=== PATIENT | male | born 1960 | race Caucasian/White ===

== ENCOUNTER 2020-04-02 07:26 | Emergency (ER) | payer BC ==
[2020-04-02 07:33] VITALS: TEMP 98.4
[2020-04-02] MEDS ORDERED: ETOMIDATE 2 MG/ML 10 ML VIAL IVP STA (08:01)
[2020-04-02 08:54] VITALS: PULSE 69
--- NOTE | 2020-04-02 08:58 | XR ---
EXAMINATION TYPE: XR knee complete LT DATE OF EXAM: 04/02/2020 COMPARISON: NONE HISTORY: 60-year-old male with knee pain for months, difficulty walking TECHNIQUE: 3 views FINDINGS: There is a 3.9 cm wide broad-based partially pedunculated osteochondroma projecting out into the soft tissues by 1.6 cm along the posteromedial aspect of the distal femoral shaft. No periostitis or oste olysis. No knee joint effusion. Mild degenerative spurring in the medial and patellofemoral compartme nts. Extensor mechanism is intact. No acute fracture, subluxation, or dislocation seen. IMPRESSION: 1. A 2.9 cm broad-based, partially pedunculated osteochondroma projecting out into the soft tissues b y 1.6 cm along the posterior medial aspect of the distal femoral shaft. Correlate as to if this is co ntributing to the patient's symptoms. 2. Mild degenerative spurring in the medial patellofemoral compartments without acute osseous abnorma lity seen.
--- NOTE | 2020-04-02 09:06 | ED ---
Extremity Problem HPI - General Chief complaint: Extremity Problem,Nontraumatic Stated complaint: knee pain Time Seen by Provider: 04/02/20 07:35 Source: patient Mode of arrival: ambulatory Limitations: no limitations - History of Present Illness Initial comments: 60 year male presents today for chief complaint of left knee pain xmonths. Patient states he has left anterior posterior knee pain ongoing for months. Patient states he has an orthopedic appointment coming up states he has not had any imaging studies. Patient's states she was concerned of possible blood clot. Patient denies history of cancer history DVT and pulmonary embolism denies exogenous hormone use recent surgeries recent injury falls or direct trauma denies any leg swelling or calf pain, denies chest pain or SOB. Denies fevers, redness or swelling of the knee joint. Patient denies any additional complaints. Upon arrival patient appears well there is no signs of acute distress. - Related Data Home Medications Medication Instructions Recorded Confirmed Aspirin [Adult Low Dose Aspirin EC] 162 mg PO DAILY 04/02/20 04/02/20 Atorvastatin Calcium [Lipitor] 10 mg PO HS 04/02/20 04/02/20 Calcium Carbonate/Vitamin D3 1 tab PO DAILY 04/02/20 04/02/20 [Calcium 600-Vit D3 200 Tablet] Krill/[place]-3/Dha/Epa/Lipids 1 cap PO DAILY 04/02/20 04/02/20 [Krill Oil 350 mg Softgel] Losartan Potassium 100 mg PO HS 04/02/20 04/02/20 Multivitamins, Thera [Multivitamin 1 tab PO DAILY 04/02/20 04/02/20 (formulary)] Allergies Allergy/AdvReac Type Severity Reaction Status Date / Time No Known Allergies Allergy Verified 04/02/20 08:29 Review of Systems ROS Statement: Those systems with pertinent positive or pertinent negative responses have been documented in the HPI. ROS Other: All systems not noted in ROS Statement are negative. Past Medical History Past Medical History: Hyperlipidemia, Hypertension History of Any Multi-Drug Resistant Organisms: None Reported Past Surgical History: No Surgical Hx Reported Past Psychological History: No Psychological Hx Reported Smoking Status: Current every day smoker Past Alcohol Use History: Occasional Past Drug Use History: Marijuana General Exam - General Exam Comments Initial Comments: General: The patient is awake and alert, in no distress, and does not appear acutely ill. Eye: Pupils are equal, round and reactive to light, extra-ocular movements are intact. No nystagmus. There is normal conjunctiva bilaterally. No signs of icterus. Cardiovascular: There is a regular rate and rhythm. No murmur, rub or gallop is appreciated. Respiratory: Lungs are clear to auscultation, respirations are non-labored, breath sounds are equal. No wheezes, stridor, rales, or rhonchi. Gastrointestinal: Soft, non-distended, non-tender abdomen without masses or organomegaly noted. There is no rebound or guarding present. Musculoskeletal: Normal ROM, tenderness clicking of the left knee. Strength 5/5. Sensation intact. DP pulses equal bilaterally 2+. Neurological: A&O x 3. CN II-XII intact grossly, There are no obvious motor or sensory deficits. Coordination appears grossly intact. Speech is normal. Skin: Skin is warm and dry and no rashes or lesions are noted. No calf pain, no calf swelling or mass-no masses of popliteal fossa. Psychiatric: Cooperative, appropriate mood & affect, normal judgment. Limitations: no limitations Course Vital Signs 04/02/20 04/02/20 04/02/20 07:27 07:33 08:48 Temperature 98.4 F Pulse Rate 81 69 Respiratory 18 18 18 Rate Blood Pressure 169/100 174/94 O2 Sat by Pulse 98 97 Oximetry 04/02/20 09:43 Temperature Pulse Rate 69 Respiratory 20 Rate Blood Pressure 160/87 O2 Sat by Pulse 97 Oximetry Medical Decision Making - Medical Decision Making 60-year-old male presenting today for chief complaint of left knee pain ongoing for months. Upcoming appointment orthopedics. No previous imaging studies x- ray revealed a osteochondroma of the femur otherwise no acute findings. Does no t appear particularly to be in the same location of patient's pain. D-dimer negative patient has minimal risk factors for deep venous are both scissors no clinical findings a physical examination concerning for DVT. Recommend pcp f/u return for swelling, calf pain, redness, fevers. Patient is aware of the need to f/u with orthopedic surgery for further evaluation and treatment. [place] agreeable to care plan and discharge. - Lab Data Lab Results 04/02/20 Range/Units 08:03 D-Dimer 0.28 (<0.60) mg/L FEU Disposition Clinical Impression: Osteochondroma of femur, Knee pain, left Disposition: HOME SELF-CARE Condition: Good Instructions (If sedation given, give patient instructions): Benign Bone Tumor (DC) Additional Instructions: Please use medication as discussed. Please follow-up with orthopedics as scheduled. Please return to emergency room if the symptoms increase or worsen or for any other concerns. Is patient prescribed a controlled substance at d/c from ED?: No Referrals: Nonstaff,Physician [Primary Care Provider] - 1-2 days Time of Disposition: 09:05
[2020-04-02 09:44] VITALS: BP 160/87; RESP 20
== END 2020-04-02 09:43 | disposition home or self-care (01) ==
LOC: EC 07:26
DX: D16.22 Benign neoplasm of long bones of left lower limb (principal); E78.5 Hyperlipidemia, unspecified; I10 Essential (primary) hypertension; F17.200 Nicotine dependence, unspecified, uncomplicated; Z79.899 Other long term (current) drug therapy; Z79.82 Long term (current) use of aspirin
CPT/HCPCS: 36415; 85379; 99283

== ENCOUNTER → 2021-12-22 | Outpatient (CLI) | payer BC ==
--- NOTE | 2021-12-22 23:16 | XR ---
EXAMINATION TYPE: XR chest 2V DATE OF EXAM: 12/22/2021 COMPARISON: None available HISTORY: Chest pain TECHNIQUE: Frontal and lateral views of the chest are obtained. FINDINGS: Unremarkable lungs. No pleural effusion or pneumothorax. No cardiomegaly. Aortic atherosclerotic calc ifications. No aggressive bone lesion. IMPRESSION: No definite acute abnormality identified.
== END ==
LOC: RADXRMAIN 10:55
PROVIDERS: ATTEND Internal Medicine
DX: R07.9 Chest pain, unspecified (principal)
CPT/HCPCS: 71046

== ENCOUNTER 2021-12-29 06:01 | Inpatient (IN) | payer BC ==
[~2021-12-29 06:01] MED LIST: ALPRAZolam 0.25 MG TAB PO PRN; ALPRAZolam 0.5 MG TAB PO PRN; NITROGLYCERIN SL TABS 0.4 MG TAB SUBLINGUAL PRN; SODIUM CHLORIDE 0.9% 1,000 ML in EMPTY BAG 1 BAG IV SCH
[2021-12-29 06:50] LABS: Basophils # (A) 0.1 k/uL (0-0.2); Basophils % (A) 1 %; Eosinophils # (A) 0.4 k/uL (0-0.7); Eosinophils % (A) 5 %; HCT 41.8 % (39.0-53.0); HGB 13.9 gm/dL (13.0-17.5); Lymphocytes # (A) 1.4 k/uL (1.0-4.8); Lymphocytes % (A) 15 %; MCHC 33.4 g/dL (31.0-37.0); MCV 95.9 fL (80.0-100.0); Monocytes # (A) 0.5 k/uL (0-1.0); Monocytes % (A) 6 %; Neutrophils # (A) 6.5 k/uL (1.3-7.7); Neutrophils % (A) 72 %; Platelet Count 268 k/uL (150-450); RBC 4.36 m/uL (4.30-5.90); RDW 12.8 % (11.5-15.5)
[2021-12-29] MEDS ORDERED: HEPARIN SODIUM,PORCINE 10,000 UNIT in SODIUM CHLORIDE 0.9% 1,000 ML IRRIGATION PRN (07:00)
[2021-12-29] MEDS ORDERED: HEPARIN SODIUM,PORCINE 2,500 UNIT in SODIUM CHLORIDE 0.9% 250 ML IRRIGATION PRN (07:00)
[2021-12-29] MEDS ORDERED: ASPIRIN 325 MG TAB PO ONE (07:00)
[2021-12-29 07:02] LABS: African American GFR (CKD) >90 (>60 ml/min/1.73 sqM); Anion Gap 4 mmol/L; Blood Urea Nitrogen 13 mg/dL (9-20); Calcium 8.9 mg/dL (8.4-10.2); Carbon Dioxide 28 mmol/L (22-30); Chloride 108 mmol/L (98-107); Glucose 105 mg/dL (74-99); Non-African American GFR(CKD) >90 (>60 ml/min/1.73 sqM); Potassium 4.6 mmol/L (3.5-5.1); Sodium 140 mmol/L (137-145)
[2021-12-29] MEDS ORDERED: LIDOCAINE 1% INJ 10MG/ML (20 ML MDV) ONE (07:34)
[2021-12-29] MEDS ORDERED: MIDAZOLAM 2 MG/2 ML VIAL IV ONE (07:49)
[2021-12-29] MEDS ORDERED: fentaNYL (PF) 50 MCG/ML 2 ML AMP ONE (07:50)
[2021-12-29] MEDS ORDERED: VERAPAMIL 2.5 MG/ML 2 ML AMP ONE (07:50)
[2021-12-29] MEDS ORDERED: fentaNYL (PF) 50 MCG/ML 2 ML AMP IV ONE (07:51)
[2021-12-29] MEDS ORDERED: LIDOCAINE 1% INJ 10MG/ML (20 ML MDV) SQ ONE (07:54)
[2021-12-29] MEDS ORDERED: HEPARIN SODIUM 1,000 UN/ML (10ML VL) ONE (07:56)
[2021-12-29] MEDS: VERAPAMIL SYRINGE (5 MG/10 ML) INTRAARTER ONE ×2 (07:56→08:08)
[2021-12-29] MEDS ORDERED: IOPAMIDOL-370 125ML BTL INJ ONE (08:10)
[2021-12-29] MEDS ORDERED: RX INFO: IV CONTRAST WAS GIVEN 1 EACH MISC MISCELLANE PRN (08:30)
--- NOTE | 2021-12-29 09:30 | CC ---
CARDIAC CATHETERIZATION REPORT INDICATION: Unstable angina with an abnormal stress test. PROCEDURE NOTE: After obtaining informed consent, left heart catheterization and coronary angiogram were performed via the right radial artery using size 3.5 [place] catheters. Left ventricular pressures were obtained using a pigtail catheter. The patient tolerated the procedure well without any obvious immediate complications. Using a micropuncture needle, right radial artery access was obtained, and under fluoroscopic guidance catheters and wires were floated into the ascending aorta and catheters were exchanged there. Patient received 5 mg of verapamil, 5000 units of IV heparin as per protocol, and a TR band was used for hemostasis. FINDINGS: HEMODYNAMICS: Left ventricular end-diastolic pressure is 15 mm. There is no significant gradient across the aortic valve. LEFT VENTRICULOGRAM: Left ventriculogram was not performed. ANGIOGRAPHIC DATA: Left main coronary artery. Left main coronary artery is a normal-sized vessel. It appears heavily calcified, as do the LAD and circumflex coronary arteries. Distal left main has a 70% stenosis. Ostial circumflex has a 90% stenosis, and in the proximal third there is another area of 90% stenosis. LAD gives off two large-caliber diagonal branches. The first diagonal has an 80% to 90% ostial stenosis. Mid LAD has a 50% stenosis. Right coronary artery is a large dominant vessel that shows two segmental areas of 90% stenosis both in the mid and distal RCA. CONCLUSIONS: Severe left main and three-vessel coronary artery disease as described above. PLAN: The patient will need bypass surgery. I spoke to Dr. Ladd, who is going to see the patient today. I am going to admit him. My expectation is that this patient will undergo surgery on this admission. The patient is stable hemodynamically. He does not have any chest pain or shortness of breath. I will obtain a 2D echo and carotid duplex study. MMODL / IJN: [id number] /
--- NOTE | 2021-12-29 10:01 | ECHOF ---
Referral Reason:OPEN HEART CONSULT MEASUREMENTS -------- HEIGHT: 152.4 cm WEIGHT: 78.5 kg BP: RVIDd: 3.5 cm (< 3.3) IVSd: 1.1 cm (0.6 - 1.1) LVIDd: 5.4 cm (3.9 - 5.3) LVPWd: 1.0 cm (0.6 - 1.1) IVSs: 1.4 cm LVIDs: 3.6 cm LVPWs: 1.5 cm LA Diam: 4.6 cm (2.7 - 3.8) LAESV Index (A-L): 37.68 ml/m Ao Diam: 3.4 cm (2.0 - 3.7) AV Cusp: 2.0 cm (1.5 - 2.6) LA Diam: 4.0 cm (2.7 - 3.8) MV EXCURSION: 22.213 mm (> 18.000) MV EF SLOPE: 78 mm/s (70 - 150) EPSS: 0.6 cm MV E Ray: 0.48 m/s MV DecT: 198 ms MV A Ray: 0.76 m/s MV E/A Ratio: 0.63 RAP: 5.00 mmHg RVSP: 21.00 mmHg FINDINGS -------- Sinus rhythm. This was a technically good study. LV size, wall thickness and systolic function are normal, with an EF greater than 55%. The left homar tricular size is normal. The right ventricle is normal in size. LA is moderately dilated 34-39 ml/m2 The aortic valve is trileaflet, and appears structurally normal. No aortic stenosis or regurgitation. Mild mitral regurgitation is present. Mild tricuspid regurgitation present. Right ventricular systolic pressure is normal at < 35 mmHg. There is no pulmonic regurgitation present. Echo free space indicative of a pericardial fat pad. CONCLUSIONS -------- 1. LV size, wall thickness and systolic function are normal, with an EF greater than 55%. 2. The left ventricular size is normal. 3. The right ventricle is normal in size. 4. LA is moderately dilated 34-39 ml/m2 5. The aortic valve is trileaflet, and appears structurally normal. No aortic stenosis or regurgitati on. 6. Mild mitral regurgitation is present. 7. Mild tricuspid regurgitation present. 8. Echo free space indicative of a pericardial fat pad. REJECTOR: Maria Fernanda Ta RDCS
--- NOTE | 2021-12-29 10:47 | US ---
EXAMINATION TYPE: US carotid duplex BILAT DATE OF EXAM: 12/29/2021 COMPARISON: NONE CLINICAL HISTORY: OPEN HEART CONSULT. EXAM MEASUREMENTS: RIGHT: Peak Systolic Velocity (PSV) cm/sec ----- Right CCA: 68.2 ----- Right ICA: 108.9 ----- Right ECA: 155.4 ICA/CCA ratio: 1.6 RIGHT: End Diastole cm/sec ----- Right CCA: 14.4 ----- Right ICA: 27.5 ----- Right ECA: 16.4 LEFT: Peak Systolic Velocity (PSV) cm/sec ----- Left CCA: 64.8 ----- Left ICA: 118.3 ----- Left ECA: 271.2 ICA/CCA ratio: 1.8 LEFT: End Diastole cm/sec ----- Left CCA: 20.7 ----- Left ICA: 30.0 ----- Left ECA: 22.3 VERTEBRALS (direction of flow): Right Vertebral: Antegrade Left Vertebral: Antegrade Rhythm: Normal Bilateral plaque visualized elevated left ECA. No significant stenosis seen Grayscale, color Doppler, spectral Doppler imaging performed the carotid arteries. Waveform analysis does not show significant stenosis of the internal carotid arteries IMPRESSION: No hemodynamic significant stenosis of the internal carotid arteries by Doppler criteria , an indirect measurement of carotid stenosis Criteria for Assigning % of Stenosis / Diameter reduction (Estimation based on the indirect measurements of the internal carotid artery velocities (ICA PSV). 1. Normal (no stenosis)=ICA PSV < 125 cm/s: ratio < 2.0: ICA EDV<40 cm/s. 2. Less than 50% stenosis=ICA PSV < 125 cm/s: ratio < 2.0: ICA EDV<40 cm/s. 3. 50 to 69% stenosis=ICA PSV of 125 to 230 cm/s: ration 2.0 ? 4.0: ICA EDV 40-100 cm/s. 4. Greater than 70% stenosis to near occlusion= ICA PSV > 230 cm/s: ratio > 4.0: ICA EDV > 100 cm/s. 5. Near occlusion= ICA PSV velocities may be low or undetectable: variable ratio and ICA EDV. 6. Total occlusion=unable to detect flow.
--- NOTE | 2021-12-29 11:35 | P.GSCN ---
<Sandrita Mendosa - Last Filed: 12/29/21 11:34> History of Present Illness Consult date: 12/29/21 Reason for Consult: Coronary artery disease with left main disease Requesting physician: Redd Cummings History of present illness: This is a 61-year-old active gentleman who follows on an outpatient basis with Dr. Parsons for primary care. He has a previous medical history of hypertension, hyperlipidemia, current tobacco dependence, occasional EtOH and marijuana use. He was experiencing symptoms of shortness of breath and chest pain and sought care with Dr. Cummings from [facility]. He underwent a treadmill stress test which had to be stopped early due to chest pain and shortness of breath. At peak exercise he did have ST depression in the inferolateral leads and was recommended to undergo heart catheterization which was completed today and which demonstrated left main stenosis 70%, RCA stenosis 90%, circumflex stenosis 90%, and distal LAD stenosis 70-80%. Of note transthoracic echocardiogram was also completed demonstrating normal left ventricular systolic function with EF 55%, mild mitral and mild tricuspid regurgitation. Due to heart catheterization findings consultation is placed to cardiothoracic surgery for surgical revascularization recommendations. Review of Systems Review of systems was completed and was negative except as noted in the HPI Past Medical History Past Medical History: Hyperlipidemia, Hypertension Additional Past Medical History / Comment(s): SEE H&P BY DR. CUMMINGS FOR CARDIAC STATUS. History of Any Multi-Drug Resistant Organisms: None Reported Past Surgical History: No Surgical Hx Reported Additional Past Surgical History / Comment(s): TORN MENISCUS LEFT ARTHOSCOPIC Past Anesthesia/Blood Transfusion Reactions: No Reported Reaction Past Psychological History: No Psychological Hx Reported Smoking Status: Current every day smoker Past Alcohol Use History: Occasional Additional Past Alcohol Use History / Comment(s): SMOKED SINCE AGE 28 YRS. , 5-6 CIGS PER Past Drug Use History: Marijuana Medications and Allergies Home Medications Medication Instructions Recorded Confirmed Type Aspirin [Adult Low Dose Aspirin EC] 81 mg PO DAILY 04/02/20 12/29/21 History Atorvastatin Calcium [Lipitor] 10 mg PO HS 04/02/20 12/29/21 History Calcium Carbonate/Vitamin D3 1 tab PO DAILY 04/02/20 12/29/21 History [Calcium 600-Vit D3 200 Tablet] Krill/[place]-3/Dha/Epa/Lipids 1 cap PO DAILY 04/02/20 12/29/21 History [Krill Oil 350 mg Softgel] Losartan Potassium 100 mg PO HS 04/02/20 12/29/21 History Multivitamins, Thera [Multivitamin 1 tab PO DAILY 04/02/20 12/29/21 History (formulary)] Isosorbide Mononitrate [Isosorbide 30 mg PO DAILY 12/29/21 12/29/21 History Mononitrate ER] amLODIPine [Norvasc] 5 mg PO DAILY 12/29/21 12/29/21 History Allergies Allergy/AdvReac Type Severity Reaction Status Date / Time No Known Allergies Allergy Verified 12/29/21 06:36 Surgical - Exam Vital Signs Temp Pulse Resp BP Pulse Ox 98.4 F 70 18 122/74 98 12/29/21 06:54 12/29/21 06:54 12/29/21 06:54 12/29/21 06:54 12/29/21 06:54 CONSTITUTIONAL: Awake and alert, appears comfortable, cooperative, well- developed, well-nourished, no pain, no acute distress EYES: Pupils equal, round, reactive to light, normal ocular movement ENT: Moist mucous membranes without oral lesions present NECK: No masses, no bruits, trachea midline RESPIRATORY: Lungs sounds clear to auscultation bilaterally. Respirations even, nonlabored. Currently on room air with oxygen saturation 98%. Strong cough. No chest wall deformities. No clubbing or cyanosis present CARDIOVASCULAR: S1, S2 present. Regular rate and rhythm, sinus rhythm on telemetry. Palpable peripheral pulses bilaterally. No edema present. No calf pain or tenderness noted. No significant lower extremity varicosities noted. Left radial Maynor's test less than 8 seconds. GASTROINTESTINAL: Abdomen soft, nontender, nondistended without masses or organomegaly noted. There is no rebound or guarding present. Active bowel sounds present 4 quadrants. GENITOURINARY: Deferred INTEGUMENTARY: Skin is warm and dry with evidence of good perfusion. Right radial heart catheterization site well approximated without drainage, T band in place NEUROLOGIC: Cranial nerves II through XII intact, normal coordination, no obvious motor or sensory deficits, speech is normal MUSKULOSKELETAL: Able to move all extremities, strength equal bilaterally, normal posture PSYCHIATRIC: Alert and oriented to person place and time, appropriate affect, intact judgment and insight Results - Labs 12/29/21 06:40 12/29/21 06:40 Abnormal Lab Results - Last 24 Hours (Table) 12/29/21 Range/Units 06:40 Chloride 108 H (98-107) mmol/L Glucose 105 H (74-99) mg/dL Diabetes panel 12/29/21 Range/Units 06:40 Sodium 140 (137-145) mmol/L Potassium 4.6 (3.5-5.1) mmol/L Chloride 108 H (98-107) mmol/L Carbon Dioxide 28 (22-30) mmol/L BUN 13 (9-20) mg/dL Creatinine 0.76 (0.66-1.25) mg/dL Glucose 105 H (74-99) mg/dL Calcium 8.9 (8.4-10.2) mg/dL Calcium panel 12/29/21 Range/Units 06:40 Calcium 8.9 (8.4-10.2) mg/dL Pituitary panel 12/29/21 Range/Units 06:40 Sodium 140 (137-145) mmol/L Potassium 4.6 (3.5-5.1) mmol/L Chloride 108 H (98-107) mmol/L Carbon Dioxide 28 (22-30) mmol/L BUN 13 (9-20) mg/dL Creatinine 0.76 (0.66-1.25) mg/dL Glucose 105 H (74-99) mg/dL Calcium 8.9 (8.4-10.2) mg/dL Adrenal panel 12/29/21 Range/Units 06:40 Sodium 140 (137-145) mmol/L Potassium 4.6 (3.5-5.1) mmol/L Chloride 108 H (98-107) mmol/L Carbon Dioxide 28 (22-30) mmol/L BUN 13 (9-20) mg/dL Creatinine 0.76 (0.66-1.25) mg/dL Glucose 105 H (74-99) mg/dL Calcium 8.9 (8.4-10.2) mg/dL - Imaging Additional studies: Heart catheterization films reviewed with Dr. Martinez Assessment and Plan Assessment: 1. Triple-vessel coronary artery disease with left main disease, unstable angina 2. History of hypertension 3. History of hyperlipidemia, treated 4. Current tobacco dependence 5. Family history of premature coronary artery disease with mother having her first CABG at 56 years old 6. Remains unvaccinated from covid Plan: The patient was seen and examined at the bedside in the extended stay unit. Chart/diagnostics reviewed. The case was discussed in detail with Dr. Martinez. The usual perioperative course of coronary artery bypass surgery was discussed in detail with the patient and his , risks and benefits were reviewed, all questions were answered, and patient does consent to surgery. Preoperative testing was initiated. Will calculate STS risk score once testing has been completed. Will complete 5 m walk test. Recommend continuing aspirin, statin, beta nely therapy. Smoking cessation counseling was offered, patient is strongly encouraged to quit smoking. Will consult pulmonology for preop clearance. More recommendations to follow regarding timing of surgery once testing has been completed. Thank you Dr. Cummings for this consult. We look forward to working with you in the care of your patient. I have personally seen and examined the patient, performed the documentation in the assessment and plan as written. Number of minutes spent on the visit: 30 min Time with Patient: Greater than 30 <Tadeo Martinez - Last Filed: 12/29/21 12:33> Surgical - Exam Vital Signs Temp Pulse Resp BP Pulse Ox 98.4 F 70 18 122/74 98 12/29/21 06:54 12/29/21 06:54 12/29/21 06:54 12/29/21 06:54 12/29/21 06:54 Results - Labs 12/29/21 06:40 12/29/21 06:40 Abnormal Lab Results - Last 24 Hours (Table) 12/29/21 Range/Units 06:40 Chloride 108 H (98-107) mmol/L Glucose 105 H (74-99) mg/dL Diabetes panel 12/29/21 Range/Units 06:40 Sodium 140 (137-145) mmol/L Potassium 4.6 (3.5-5.1) mmol/L Chloride 108 H (98-107) mmol/L Carbon Dioxide 28 (22-30) mmol/L BUN 13 (9-20) mg/dL Creatinine 0.76 (0.66-1.25) mg/dL Glucose 105 H (74-99) mg/dL Calcium 8.9 (8.4-10.2) mg/dL Calcium panel 12/29/21 Range/Units 06:40 Calcium 8.9 (8.4-10.2) mg/dL Pituitary panel 12/29/21 Range/Units 06:40 Sodium 140 (137-145) mmol/L Potassium 4.6 (3.5-5.1) mmol/L Chloride 108 H (98-107) mmol/L Carbon Dioxide 28 (22-30) mmol/L BUN 13 (9-20) mg/dL Creatinine 0.76 (0.66-1.25) mg/dL Glucose 105 H (74-99) mg/dL Calcium 8.9 (8.4-10.2) mg/dL Adrenal panel 12/29/21 Range/Units 06:40 Sodium 140 (137-145) mmol/L Potassium 4.6 (3.5-5.1) mmol/L Chloride 108 H (98-107) mmol/L Carbon Dioxide 28 (22-30) mmol/L BUN 13 (9-20) mg/dL Creatinine 0.76 (0.66-1.25) mg/dL Glucose 105 H (74-99) mg/dL Calcium 8.9 (8.4-10.2) mg/dL Assessment and Plan Plan: 61 year old male presents with exertional angina. Cardiac cath reveals multi- vessel CAD including left main disease. CABG recommended. The risks, benefits, and alternatives to the procedure, including but not limited to the risk of stroke, infection, bleeding, NE, need for blood transfusion, pneumonia, hemodialysis, and , were discussed with the patient and his family members. All of their questions were answered. Pre-op workup in progress. The patient is currently hemodynamically stable and symptom free. Plan for surgery on 01/01/2022. I have personally seen and examined the patient, reviewed the documentation and agree with the assessment and plan as written. Number of minutes spent on the visit: 60 min.
[2021-12-29 11:46] LABS: Appearance,Urine Clear (Clear); Bilirubin,Urine Negative (Negative); Blood,Urine Negative (Negative); Color,Urine Light Yellow; Glucose,Urine (UA) Negative (Negative); Ketones,Urine Negative (Negative); Leukocyte Esterase,Urine Negative (Negative); Nitrite,Urine Negative (Negative); Protein,Urine Negative (Negative); Specific Gravity,Urine 1.008 (1.001-1.035); Urobilinogen,Urine <2.0 mg/dL (<2.0)
[2021-12-29] MEDS: SODIUM CHLORIDE 0.9% 1,000 ML IV SCH (15:24)
--- NOTE | 2021-12-29 17:43 | CT ---
EXAMINATION TYPE: CT chest wo con DATE OF EXAM: 12/29/2021 COMPARISON: None HISTORY: Abnormal findings on diagnostic imaging, eval aorta for clampability CT DLP: 364.9 mGycm Automated exposure control for dose reduction was used. Images obtained without contrast from the thoracic inlet to the diaphragm. The lungs are clear of infiltrate. There is no evidence of a pulmonary mass. There is no pleural effu renetta. There is no pneumothorax. Heart size is normal. There is no pericardial effusion. There is no mediastinal adenopathy. Thoracic aorta is intact. There is no evidence of aneurysm. The a scending aorta measures 3.5 cm. There are no hilar masses. There is some coronary artery calcificatio n. The thoracic spine is intact. There is no compression fracture. Sternum is intact. There is no eviden ce of rib fracture. Upper abdominal soft tissues are intact. IMPRESSION: No acute abnormality of the chest. Atherosclerotic vascular disease. No thoracic aortic aneurysm.
--- NOTE | 2021-12-29 18:03 | P.CNPUL ---
<Mitzy Noyola M - Last Filed: 12/29/21 17:54> History of Present Illness Consult date: 12/29/21 Requesting physician: Sandrita Mendosa Reason for consult: dyspnea Chief complaint: Shortness of breath, symptomatic coronary artery disease History of present illness: 61-year-old male patient of Dr. Lee, with current and ongoing history of tobacco dependence, hypertension, hyperlipidemia, occasional drinker and marijuana user. Patient had been experiencing symptoms of shortness of breath and chest pain and was undergoing outpatient treadmill stress test when he developed shortness of breath and chest pain and the stress test was stopped early. He also developed EKG changes with ST depression in the inferolateral leads and was recommended to undergo heart catheterization which was completed today on 12/29/2021 showing 70% left main stenosis, 90% RCA stenosis, 90% circumflex stenosis and distal LAD stenosis of 70-80%. Echocardiogram was completed showing preserved EF of 55%, mild mitral and mild tricuspid r egurgitation. Cardiothoracic surgery was consulted for evaluation of for possibility of surgical revascularization. And that we were consulted for pulmonary evaluation and pulmonary critical care management in the postoperative period. Chest CT showed clear lungs with no evidence of pulmonary mass, no pleural effusion, heart size was normal no pericardial effusion. Thoracic aorta was intact, no evidence of aneurysm, no hilar masses, some coronary artery calcification. Carotid Doppler showed no hemodynamically significant stenosis of internal carotid arteries. CBC was within normal limits, his white blood cell count was 9.0, hemoglobin of 13.9, electrolytes and renal profile were unremarkable, urinalysis was negative, COVID-19 PCR was negative. His preop FEV1 is pending, patient is being evaluated for possibility of bypass grafting. Review of Systems All systems: negative Constitutional: Denies chills, Denies fever Eyes: denies blurred vision, denies pain Ears, nose, mouth and throat: Denies headache, Denies sore throat Cardiovascular: Reports chest pain, Denies shortness of breath Respiratory: Reports dyspnea, Denies cough Gastrointestinal: Denies abdominal pain, Denies diarrhea, Denies nausea, Denies vomiting Musculoskeletal: Denies myalgias Integumentary: Denies pruritus, Denies rash Neurological: Denies numbness, Denies weakness Psychiatric: Denies anxiety, Denies depression Endocrine: Denies fatigue, Denies weight change Past Medical History Past Medical History: Hyperlipidemia, Hypertension Additional Past Medical History / Comment(s): SEE H&P BY DR. MONTGOMERY FOR CARDIAC STATUS. History of Any Multi-Drug Resistant Organisms: None Reported Past Surgical History: No Surgical Hx Reported Additional Past Surgical History / Comment(s): TORN MENISCUS LEFT ARTHOSCOPIC Past Anesthesia/Blood Transfusion Reactions: No Reported Reaction Past Psychological History: No Psychological Hx Reported Smoking Status: Current every day smoker Past Alcohol Use History: Occasional Additional Past Alcohol Use History / Comment(s): SMOKED SINCE AGE 28 YRS. , 5-6 CIGS PER Past Drug Use History: Marijuana Medications and Allergies Home Medications Medication Instructions Recorded Confirmed Type Aspirin [Adult Low Dose Aspirin EC] 81 mg PO DAILY 04/02/20 12/29/21 History Atorvastatin Calcium [Lipitor] 10 mg PO HS 04/02/20 12/29/21 History Calcium Carbonate/Vitamin D3 1 tab PO DAILY 04/02/20 12/29/21 History [Calcium 600-Vit D3 200 Tablet] Krill/[place]-3/Dha/Epa/Lipids 1 cap PO DAILY 04/02/20 12/29/21 History [Krill Oil 350 mg Softgel] Losartan Potassium 100 mg PO HS 04/02/20 12/29/21 History Multivitamins, Thera [Multivitamin 1 tab PO DAILY 04/02/20 12/29/21 History (formulary)] Isosorbide Mononitrate [Isosorbide 30 mg PO DAILY 12/29/21 12/29/21 History Mononitrate ER] amLODIPine [Norvasc] 5 mg PO DAILY 12/29/21 12/29/21 History Allergies Allergy/AdvReac Type Severity Reaction Status Date / Time No Known Allergies Allergy Verified 12/29/21 06:36 Physical Exam Vitals: Vital Signs Temp Pulse Pulse Resp BP BP Pulse Ox 12/29/21 16:00 97.6 F 62 17 167/89 97 12/29/21 14:52 98.5 F 60 18 172/70 97 12/29/21 12:15 66 16 153/71 96 12/29/21 11:15 63 16 129/66 96 12/29/21 10:15 60 16 132/58 96 12/29/21 09:45 67 16 142/68 97 12/29/21 09:15 61 16 140/70 98 12/29/21 09:00 67 16 142/69 98 03/01/22 08:56 63 18 119/60 98 12/29/21 08:45 62 16 153/74 98 12/29/21 08:41 59 L 18 132/58 98 12/29/21 08:30 68 16 165/82 96 12/29/21 08:26 59 L 18 142/68 98 12/29/21 06:54 98.4 F 70 18 122/74 127/71 98 Intake and Output 12/29/21 12/29/21 12/29/21 06:59 14:59 22:59 Intake Total 200 515 Balance 200 515 Intake: IV 200 275 Sodium Chloride 0.9% 1, 75 000 ml @ 75 mls/hr IV . [id number] [facility] Rx#:[id number] Oral 240 Other: Voiding Method Toilet # Voids 1 Weight 78.9 kg 78.9 kg GENERAL EXAM: Alert, very pleasant, 61-year-old white male, sitting up in a recliner, on room air with pulse ox of 97% comfortable in no apparent distress. HEAD: Normocephalic/atraumatic. EYES: Normal reaction of pupils, equal size. Conjunctiva pink, sclera white. NOSE: Clear with pink turbinates. THROAT: No erythema or exudates. NECK: No masses, no JVD, no thyroid enlargement, no adenopathy. CHEST: No chest wall deformity. Symmetrical expansion. LUNGS: Equal air entry with no crackles, wheeze, rhonchi or dullness. CVS: Regular rate and rhythm, normal S1 and S2, no gallops, no murmurs, no rubs ABDOMEN: Soft, nontender. No hepatosplenomegaly, normal bowel sounds, no guarding or rigidity. EXTREMITIES: No clubbing, no edema, no cyanosis, 2+ pulses and upper and lower extremities. MUSCULOSKELETAL: Muscle strength and tone normal. SPINE: No scoliosis or deformity SKIN: No rashes CENTRAL NERVOUS SYSTEM: Alert and oriented -3. No focal deficits, tone is normal in all 4 extremities. PSYCHIATRIC: Alert and oriented -3. Appropriate affect. Intact judgment and insight. Results - Laboratory Findings CBC and BMP: 12/29/21 06:40 12/29/21 06:40 Abnormal lab findings: Abnormal Labs 12/29/21 06:40 Chloride 108 H Glucose 105 H - Diagnostic Findings CT scan - chest: report reviewed, image reviewed Additional studies: EKG, echocardiogram reviewed Assessment and Plan Plan: Assessment: #1. Symptomatic multivessel coronary artery disease with left main disease, awaiting surgical evaluation for possibility of bypass grafting #2. History of hypertension #3. History of hyperlipidemia #4. Current and ongoing tobacco dependence #5. Family history of premature coronary artery disease #6. Occasional marijuana user Plan: CT of the chest has been reviewed The lungs are clear of infiltrates, there is no evidence of mass, no mediastinal adenopathy Breathing comfortably Awaiting preop FEV1 We'll make recommendations based on the preop FEV1 We'll follow patient's clinical course I performed a history & physical examination of the patient and discussed their management with my nurse practitioner, Mitzy Noyola. I reviewed the nurse practitioner's note and agree with the documented findings and plan of care. Lung sounds are positive for dim breath sounds throughout the lung carcamo. The findings and the impression was discussed with the patient. I attest to the documentation by the nurse practitioner. I have personally seen and examined the patient, performed the documentation and the assessment and plan as written. Number of minutes spent on the visit: [10] Time with Patient: Greater than 30 <Sam Guo - Last Filed: 12/29/21 18:11> Physical Exam Vitals: Vital Signs Temp Pulse Pulse Resp BP BP Pulse Ox 12/29/21 16:00 97.6 F 62 17 167/89 97 12/29/21 14:52 98.5 F 60 18 172/70 97 12/29/21 12:15 66 16 153/71 96 12/29/21 11:15 63 16 129/66 96 12/29/21 10:15 60 16 132/58 96 12/29/21 09:45 67 16 142/68 97 12/29/21 09:15 61 16 140/70 98 12/29/21 09:00 67 16 142/69 98 12/29/21 08:56 63 18 119/60 98 12/29/21 08:45 62 16 153/74 98 12/29/21 08:41 59 L 18 132/58 98 12/29/21 08:30 68 16 165/82 96 12/29/21 08:26 59 L 18 142/68 98 12/29/21 06:54 98.4 F 70 18 122/74 127/71 98 Intake and Output 12/29/21 12/29/21 12/29/21 06:59 14:59 22:59 Intake Total 200 515 540 Balance 200 515 540 Intake: IV 200 275 Sodium Chloride 0.9% 1, 75 000 ml @ 75 mls/hr IV . [id number] [facility] Rx#:[id number] Oral 240 540 Other: Voiding Method Toilet # Voids 1 Weight 78.9 kg 78.9 kg Results - Laboratory Findings CBC and BMP: 12/29/21 06:40 12/29/21 06:40 Abnormal lab findings: Abnormal Labs 12/29/21 06:40 Chloride 108 H Glucose 105 H Assessment and Plan Plan: I have personally seen and examined the patient and reviewed the documentation. I performed a joint evaluation with the nurse practitioner in this evaluation was done more than 30 minutes. I fully agree with the documentation above and the plan of care.
[2021-12-29] MEDS: METOPROLOL TARTRATE 12.5 MG TAB PO SCH (20:13)
[2021-12-29] MEDS: MUPIROCIN 2% OINT 22 GM TUBE NASAL SCH (20:52)
[2021-12-30] MEDS: SODIUM CHLORIDE 0.9% 1,000 ML IV SCH ×2 (00:05→17:02)
[2021-12-30 07:32] LABS: Basophils % (A) 1 %; Eosinophils # (A) 0.3 k/uL (0-0.7); Eosinophils % (A) 5 %; HCT 43.2 % (39.0-53.0); HGB 14.1 gm/dL (13.0-17.5); Lymphocytes # (A) 1.3 k/uL (1.0-4.8); Lymphocytes % (A) 19 %; MCH 31.7 pg (25.0-35.0); MCHC 32.7 g/dL (31.0-37.0); MCV 96.7 fL (80.0-100.0); Monocytes # (A) 0.4 k/uL (0-1.0); Monocytes % (A) 6 %; Neutrophils # (A) 4.7 k/uL (1.3-7.7); Neutrophils % (A) 69 %; Platelet Count 258 k/uL (150-450); RBC 4.46 m/uL (4.30-5.90); RDW 12.6 % (11.5-15.5); WBC 6.9 k/uL (3.8-10.6)
[2021-12-30 07:36] LABS: INR 0.9 (<1.2); Partial Thromboplastin Time 22.8 sec (22.0-30.0); Prothrombin Time 10.2 sec (9.0-12.0)
[2021-12-30] MEDS: METOPROLOL TARTRATE 12.5 MG TAB PO SCH ×2 (07:49→20:52)
[2021-12-30] MEDS: ATORVASTATIN 40 MG TAB PO SCH (07:50)
[2021-12-30] MEDS: MUPIROCIN 2% OINT 22 GM TUBE NASAL SCH ×2 (07:50→20:52)
[2021-12-30] MEDS: ASPIRIN 325 MG TAB PO SCH (07:50)
[2021-12-30 07:58] LABS: ALT 17 U/L (4-49); AST 20 U/L (17-59); African American GFR (CKD) >90 (>60 ml/min/1.73 sqM); Albumin 3.8 g/dL (3.5-5.0); Alkaline Phosphatase 44 U/L (38-126); Anion Gap 4 mmol/L; Blood Urea Nitrogen 13 mg/dL (9-20); Calcium 8.7 mg/dL (8.4-10.2); Carbon Dioxide 26 mmol/L (22-30); Chloride 109 mmol/L (98-107); Glucose 98 mg/dL (74-99); Magnesium 2.1 mg/dL (1.6-2.3); Non-African American GFR(CKD) >90 (>60 ml/min/1.73 sqM); Potassium 4.6 mmol/L (3.5-5.1); Sodium 139 mmol/L (137-145); Total Bilirubin 0.5 mg/dL (0.2-1.3); Total Protein 6.3 g/dL (6.3-8.2)
--- NOTE | 2021-12-30 07:59 | P.PN ---
Subjective Progress Note Date: 12/30/21 Principal diagnosis: Triple-vessel coronary artery disease with left main disease, unstable angina. Previous medical history of hypertension, hyperlipidemia, current tobacco depen dence, and family history of premature coronary artery disease with mother having her first CABG at 56 years old. Remains unvaccinated from [facility] The patient was seen and examined this morning ambulating in his room without difficulty. Denies any chest pain or shortness of breath. Dr. Martinez met with the patient and family yesterday to discuss our recommendations for surgery, all questions answered, we plan for surgery Tuesday. This was discussed with Dr. Cummings by Dr. Martinez. No other new concerns. Objective - Vital Signs Vital signs: Vital Signs Temp 97.4 F L 12/30/21 04:00 Pulse 50 L 12/30/21 04:00 Resp 18 12/30/21 04:00 BP 137/82 12/30/21 04:00 Pulse Ox 96 12/30/21 04:00 Intake & Output 12/29/21 12/30/21 12/30/21 18:59 06:59 18:59 Intake Total 1055 1080 Balance 1055 1080 Weight 78.9 kg Intake: IV 275 Sodium Chloride 0.9% 1, 75 000 ml @ 75 mls/hr IV . [id number] [facility] Rx#:[id number] Oral 780 1080 Other: Voiding Method Toilet # Voids 1 - Exam CONSTITUTIONAL: Appears comfortable, cooperative, no acute distress RESPIRATORY: Lungs sounds diminished bilaterally. Respirations even, nonlabored. Currently on room air with oxygen saturation 96%. Able to achieve 3500 mL on incentive spirometry. Strong cough. CARDIOVASCULAR: S1, S2 present. Regular rate and rhythm, sinus rhythm on telemetry. Palpable peripheral pulses bilaterally. No edema present. No calf pain or tenderness noted. GASTROINTESTINAL: Abdomen soft, nontender, nondistended. Active bowel sounds present 4 quadrants. Tolerating diet GENITOURINARY: Continues to void INTEGUMENTARY: Skin is warm and dry with evidence of good perfusion. NEUROLOGIC: Cranial nerves II through XII intact MUSKULOSKELETAL: Able to move all extremities, strength equal bilaterally PSYCHIATRIC: Alert and oriented to person place and time, appropriate affect, intact judgment and insight - Allied health notes Allied health notes reviewed: nursing - Labs CBC & Chem 7: 12/30/21 06:55 12/29/21 06:40 Labs: Microbiology - Last 24 Hours (Table) 12/29/21 13:41 Nasal Screen MRSA/MSSA - Preliminary Nasal Swab Assessment and Plan Assessment: 1. Triple-vessel coronary artery disease with left main disease, unstable angina 2. History of hypertension 3. History of hyperlipidemia, treated 4. Current tobacco dependence 5. Family history of premature coronary artery disease with mother having her first CABG at 56 years old 6. Remains unvaccinated from covid Plan: 1. Continue to maximize medical therapy with aspirin, statin, beta nely. Hold RADHA/ARB/CCB to prevent intra/postoperative vasoplegia 2. Encourage incentive spirometry use 3. STS risk score calculated and discussed with the patient 4. Increase activity, ambulate as tolerated 5. Smoking cessation counseling was offered, patient is strongly encouraged to quit smoking 6. Our plan is for surgical myocardial revascularization with left internal mammary, left endovascular radial artery harvest, endovascular vein harvest on Tuesday01/01/[address] Martinez 7. NPO after midnight 01/01/22 8. More recommendations to follow Time with Patient: Greater than 30
--- NOTE | 2021-12-30 09:31 | PN ---
PROGRESS NOTE FOLLOW-UP NOTE: Robin is a 61-year-old gentleman who presented to me with shortness of breath. He underwent a stress test that was markedly abnormal and went on to have a cardiac catheterization that revealed severe three-vessel coronary artery disease with significant distal left main stenosis. I admitted the patient for bypass surgery. He has been evaluated by Dr. Martinez, the cardiothoracic surgeon who will perform his surgery on Tuesday. Patient has had an uneventful night. He does not have any symptoms. Denies any chest pain or difficulty in breathing. On exam, he is comfortable at rest. Vital signs are stable. Chest exam reveals good air entry bilaterally. Heart exam reveals first and second heart sounds. No gallop. Abdomen is soft. Examination of extremities did not reveal any edema. Peripheral pulses are felt. Right atrial artery access site has a dressing. His pulses are normal and perfusion to the hand is normal. Labs show that the hemoglobin is 14.1, platelet count is 258. INR is normal. Potassium is 4.6. Creatinine is 0.7. He had an echocardiogram that showed normal LV systolic function without significant valvular heart disease. He had a carotid duplex study that was negative for significant carotid stenosis. A CT scan of the chest is negative for any pulmonary mass. ASSESSMENT: 1. Severe three-vessel coronary artery disease, including significant distal left main stenosis. 2. Hypertension. PLAN: Patient will undergo bypass surgery on Tuesday. I will increase the dose of his Lipitor from 10 to 40. MMODL / IJN: [id number] /
[2021-12-30 10:08] LABS: Hepatitis A Antibody IgM Nonreactive (Nonreactive); Hepatitis B Core IgM Nonreactive (Nonreactive); Hepatitis B Surface Antigen Nonreactive (Nonreactive); Hepatitis C IgG Antibody Nonreactive (Nonreactive)
--- NOTE | 2021-12-30 11:05 | P.ARTDOP ---
Arterial Doppler Bilateral radial artery imaging: Date of study: 12/29/2021 Reason for study: Preop CABG Findings: The left radial artery measures 3.2 x 3.2 mm proximally, 2.4 x 2.7 mm mid, and 3.1 x 3.0 mm distally. The right radial measures 5.3 x 3.8 mm proximally, 3.3 x 3.4 mm mid, and 3.3 x 2.5 mm distally. Impression: Both radial arteries meet size criteria and for use.
--- NOTE | 2021-12-30 11:43 | P.PN ---
<Nguyen Gerber - Last Filed: 12/30/21 11:35> Subjective Progress Note Date: 12/30/21 61-year-old male patient of Dr. Lee, with current and ongoing history of tobacco dependence, hypertension, hyperlipidemia, occasional drinker and marijuana user. Patient had been experiencing symptoms of shortness of breath and chest pain and was undergoing outpatient treadmill stress test when he developed shortness of breath and chest pain and the stress test was stopped early. He also developed EKG changes with ST depression in the inferolateral leads and was recommended to undergo heart catheterization which was completed t sea on 12/29/2021 showing 70% left main stenosis, 90% RCA stenosis, 90% circumflex stenosis and distal LAD stenosis of 70-80%. Echocardiogram was completed showing preserved EF of 55%, mild mitral and mild tricuspid regurgitation. Cardiothoracic surgery was consulted for evaluation of for possibility of surgical revascularization. And that we were consulted for pulmonary evaluation and pulmonary critical care management in the postoperative period. Chest CT showed clear lungs with no evidence of pulmonary mass, no pleural effusion, heart size was normal no pericardial effusion. Thoracic aorta was intact, no evidence of aneurysm, no hilar masses, some coronary artery calcification. Carotid Doppler showed no hemodynamically significant stenosis of internal carotid arteries. CBC was within normal limits, his white blood cell count was 9.0, hemoglobin of 13.9, electrolytes and renal profile were unremarkable, urinalysis was negative, COVID-19 PCR was negative. His preop FEV1 is pending, patient is being evaluated for possibility of bypass grafting. The patient is seen today 12/30/2021 in follow-up on the selective care unit. He's been up ambulating in the hallways. Doing very well. No chest discomfort. No shortness of breath. Maintaining good O2 saturations in the 90s on room air. He's been afebrile. Hemodynamically stable. He is continued on statins, beta blockers, aspirin. White count 6.9. Hemoglobin 14.1. INR 0.9. Sodium 139. Potassium 4.6. BUN 13. Creatinine 0.70. AST 20. ALT 17. Coronal virus by PCR not detected. Hepatitis screen negative. Urinalysis negative. Objective - Vital Signs Vital signs: Vital Signs Temp 97.4 F L 12/30/21 04:00 Pulse 50 L 12/30/21 04:00 Resp 18 12/30/21 04:00 BP 137/82 12/30/21 04:00 Pulse Ox 96 12/30/21 04:00 Intake & Output 12/29/21 12/30/21 12/30/21 18:59 06:59 18:59 Intake Total 1055 1080 Balance 1055 1080 Weight 78.9 kg Intake: IV 275 Sodium Chloride 0.9% 1, 75 000 ml @ 75 mls/hr IV . [id number] [facility] Rx#:[id number] Oral 780 1080 Other: Voiding Method Toilet # Voids 1 - Exam GENERAL EXAM: Alert, active, very pleasant 61-year-old male patient, on room air, comfortable in no apparent distress. HEAD: Normocephalic. EYES: Normal reaction of pupils, equal size. NOSE: Clear with pink turbinates. THROAT: No erythema or exudates. NECK: No masses, no JVD. CHEST: No chest wall deformity. LUNGS: Equal air entry with no crackles, wheeze, rhonchi or dullness. CVS: S1 and S2 normal with no audible murmur, regular rhythm. ABDOMEN: No hepatosplenomegaly, normal bowel sounds, no guarding or rigidity. SPINE: No scoliosis or deformity SKIN: No rashes CENTRAL NERVOUS SYSTEM: No focal deficits, tone is normal in all 4 extremities. EXTREMITIES: There is no peripheral edema. No clubbing, no cyanosis. Peripheral pulses are intact. - Labs CBC & Chem 7: 12/30/21 06:55 12/30/21 06:55 Labs: Abnormal Lab Results - Last 24 Hours (Table) 12/30/21 Range/Units 06:55 Chloride 109 H (98-107) mmol/L Microbiology - Last 24 Hours (Table) 12/29/21 13:41 Nasal Screen MRSA/MSSA - Preliminary Nasal Swab Assessment and Plan Assessment: 1 Symptomatic multivessel coronary artery disease with left main disease, awaiting surgical evaluation for possibility of bypass grafting 2 History of hypertension 3 History of hyperlipidemia 4 Current and ongoing tobacco dependence 5 Family history of premature coronary artery disease 6 Occasional marijuana user Plan: The patient was seen and evaluated FEV1 value pending Encouraged regarding the importance of complete smoking cessation Educated regarding the use of incentive spirometer We will continue to follow I have personally seen and examined the patient, performed the documentation and the assessment and plan as written. Number of minutes spent on the visit: 10. <Sam Guo - Last Filed: 12/30/21 15:43> Objective - Vital Signs Vital signs: Vital Signs Temp 98.1 F 12/30/21 12:00 Pulse 41 L 12/30/21 12:00 Resp 16 12/30/21 14:00 BP 157/84 12/30/21 12:00 Pulse Ox 97 12/30/21 12:00 Intake & Output 12/29/21 12/30/21 12/30/21 18:59 06:59 18:59 Intake Total 1055 1080 1080 Balance 1055 1080 1080 Weight 78.9 kg Intake: IV 275 600 Sodium Chloride 0.9% 1, 75 600 000 ml @ 75 mls/hr IV . [id number] [facility] Rx#:[id number] Oral 780 1080 480 Other: Voiding Method Toilet Toilet # Voids 1 - Labs CBC & Chem 7: 12/30/21 06:55 12/30/21 06:55 Labs: Abnormal Lab Results - Last 24 Hours (Table) 12/30/21 Range/Units 06:55 Chloride 109 H (98-107) mmol/L Microbiology - Last 24 Hours (Table) 12/29/21 13:41 Nasal Screen MRSA/MSSA - Preliminary Nasal Swab Assessment and Plan Assessment: I have personally seen and examined the patient and reviewed the documentation. I performed a joint evaluation with the nurse practitioner in this evaluation was done more than 15 minutes. I fully agree with the documentation above and the plan of care.
--- NOTE | 2021-12-30 13:10 | P.PN ---
<Bettye Ontiveros - Last Filed: 12/30/21 13:05> Subjective Progress Note Date: 12/30/21 HISTORY OF PRESENT ILLNESS: Patient is s/p cardiac cath with Dr. Cummings revealing severe left main disease and triple vessel disease. Patient examined this morning this morning at the bedside. Patient denies chest pain or pressure. Denies SOB. Telemetry reveals sinus bradycardia. Blood pressure 157/84. PHYSICAL EXAM: VITAL SIGNS: Reviewed. GENERAL: Well-developed in no acute distress. NECK: Supple. No JVD or thyromegaly LUNGS: Respirations even and unlabored. Lungs essentially clear to auscultation bilaterally. HEART: Regular rate and rhythm. S1 and S2 heard. EXTREMITIES: Normal range of motion. No clubbing or cyanosis. Peripheral pulses intact. No lower extremity edema ASSESSMENT: Triple vessel coronary artery disease with left main disease Hypertension Hypertension Nicotine dependence Family history of premature coronary artery disease PLAN: Continue current cardiac medications Patient is being follow by CTS and is tentatively scheduled for surgery on 01/01/2022 Further recommendations pending patient's course Nurse practitioner note has been reviewed by physician. Signing provider agrees with the documented findings, assessment, and plan of care. Objective - Vital Signs Vital signs: Vital Signs Temp 98.1 F 12/30/21 12:00 Pulse 41 L 12/30/21 12:00 Resp 16 12/30/21 12:00 BP 157/84 12/30/21 12:00 Pulse Ox 97 12/30/21 12:00 Intake & Output 12/29/21 12/30/21 12/30/21 18:59 06:59 18:59 Intake Total 1055 1080 Balance 1055 1080 Weight 78.9 kg Intake: IV 275 Sodium Chloride 0.9% 1, 75 000 ml @ 75 mls/hr IV . [id number] [facility] Rx#:[id number] Oral 780 1080 Other: Voiding Method Toilet Toilet # Voids 1 - Labs CBC & Chem 7: 12/30/21 06:55 12/30/21 06:55 Labs: Abnormal Lab Results - Last 24 Hours (Table) 12/30/21 Range/Units 06:55 Chloride 109 H (98-107) mmol/L Microbiology - Last 24 Hours (Table) 12/29/21 13:41 Nasal Screen MRSA/MSSA - Preliminary Nasal Swab <Ernie Santos - Last Filed: 12/31/21 18:57> Subjective Patient underwent coronary angiography electively by Dr. Rasmussen Noted to have triple vessel CAD Was transferred to inpatient cardiology service Dr. Rasmussen insists that he will continue to see the patient Plan Dr. Rasmsusen will continue to see the patient over this week and over the weekend, on Tuesday and Tuesday Objective - Vital Signs Vital signs: Vital Signs Temp 97.6 F 12/31/21 16:00 Pulse 56 L 12/31/21 16:00 Resp 16 12/31/21 16:00 BP 124/71 12/31/21 16:00 Pulse Ox 97 12/31/21 16:00 Intake & Output 12/30/21 12/31/21 12/31/21 18:59 06:59 18:59 Intake Total 1080 540 920 Balance 1080 540 920 Weight 79.4 kg Intake: IV 600 Sodium Chloride 0.9% 1, 600 000 ml @ 75 mls/hr IV . [id number] [facility] Rx#:[id number] Oral 480 540 920 Other: Voiding Method Toilet Toilet # Voids 1 - Labs CBC & Chem 7: 12/31/21 06:51 12/31/21 06:51 Labs: Abnormal Lab Results - Last 24 Hours (Table) 12/31/21 12/31/21 Range/Units 06:51 06:51 Chloride 108 H (98-107) mmol/L Crossmatch See Detail Microbiology - Last 24 Hours (Table) 12/29/21 13:41 Nasal Screen MRSA/MSSA - Final Nasal Swab
[2021-12-30 15:00] LABS: Chol/HDL Ratio 2.91 Ratio; LDL Cholesterol,Calculated 94.3 mg/dL (0.0-131.0)
[2021-12-31] MEDS: SODIUM CHLORIDE 0.9% 1,000 ML IV SCH ×2 (06:26→16:41)
[2021-12-31 07:27] LABS: HCT 42.8 % (39.0-53.0); MCH 31.8 pg (25.0-35.0); MCHC 32.7 g/dL (31.0-37.0); MCV 97.1 fL (80.0-100.0); Platelet Count 255 k/uL (150-450); RDW 12.6 % (11.5-15.5); WBC 6.9 k/uL (3.8-10.6)
[2021-12-31 07:41] LABS: African American GFR (CKD) >90 (>60 ml/min/1.73 sqM); Anion Gap 5 mmol/L; Blood Urea Nitrogen 11 mg/dL (9-20); Calcium 8.6 mg/dL (8.4-10.2); Carbon Dioxide 27 mmol/L (22-30); Chloride 108 mmol/L (98-107); Glucose 99 mg/dL (74-99); Non-African American GFR(CKD) >90 (>60 ml/min/1.73 sqM); Potassium 4.5 mmol/L (3.5-5.1); Sodium 140 mmol/L (137-145)
[2021-12-31] MEDS: ATORVASTATIN 40 MG TAB PO SCH (08:22)
[2021-12-31] MEDS: MUPIROCIN 2% OINT 22 GM TUBE NASAL SCH ×2 (08:22→20:45)
[2021-12-31] MEDS: ASPIRIN 325 MG TAB PO SCH (08:22)
[2021-12-31] MEDS: METOPROLOL TARTRATE 12.5 MG TAB PO SCH ×2 (08:22→20:45)
--- NOTE | 2021-12-31 08:53 | P.PN ---
Subjective Progress Note Date: 12/31/21 Principal diagnosis: Triple-vessel coronary artery disease with left main disease, unstable angina. Previous medical history of hypertension, hyperlipidemia, current tobacco depen dence, and family history of premature coronary artery disease with mother having her first CABG at 56 years old. Remains unvaccinated from [facility] The patient was seen and examined this morning ambulating in his room without difficulty. Denies any chest pain or shortness of breath. Plan for surgery tomorrow. No other new concerns. Objective - Vital Signs Vital signs: Vital Signs Temp 96.9 F L 12/31/21 08:18 Pulse 59 L 12/31/21 08:18 Resp 18 12/31/21 08:18 BP 170/82 12/31/21 08:18 Pulse Ox 98 12/31/21 08:18 Intake & Output 12/30/21 12/31/21 12/31/21 18:59 06:59 18:59 Intake Total 1080 540 260 Balance 1080 540 260 Weight 79.4 kg Intake: IV 600 Sodium Chloride 0.9% 1, 600 000 ml @ 75 mls/hr IV . [id number] [facility] Rx#:[id number] Oral 480 [id number] 260 Other: Voiding Method Toilet # Voids 1 - Exam CONSTITUTIONAL: Appears comfortable, cooperative, no acute distress RESPIRATORY: Lungs sounds diminished bilaterally. Respirations even, nonlabored. Currently on room air with oxygen saturation 97%. Able to achieve 2500 mL on incentive spirometry. Strong cough. CARDIOVASCULAR: S1, S2 present. Regular rate and rhythm, sinus rhythm on telemetry. Palpable peripheral pulses bilaterally. No edema present. No calf pain or tenderness noted. GASTROINTESTINAL: Abdomen soft, nontender, nondistended. Active bowel sounds present 4 quadrants. Tolerating diet GENITOURINARY: Continues to void INTEGUMENTARY: Skin is warm and dry with evidence of good perfusion. NEUROLOGIC: Cranial nerves II through XII intact MUSKULOSKELETAL: Able to move all extremities, strength equal bilaterally PSYCHIATRIC: Alert and oriented to person place and time, appropriate affect, intact judgment and insight - Allied health notes Allied health notes reviewed: nursing - Labs CBC & Chem 7: 12/31/21 06:51 12/31/21 06:51 Labs: Abnormal Lab Results - Last 24 Hours (Table) 12/31/21 Range/Units 06:51 Chloride 108 H (98-107) mmol/L Microbiology - Last 24 Hours (Table) 12/29/21 13:41 Nasal Screen MRSA/MSSA - Final Nasal Swab Assessment and Plan Assessment: 1. Triple-vessel coronary artery disease with left main disease, unstable angina 2. History of hypertension 3. History of hyperlipidemia, treated 4. Current tobacco dependence 5. Family history of premature coronary artery disease with mother having her first CABG at 56 years old 6. Remains unvaccinated from covid Plan: 1. Continue to maximize medical therapy with aspirin, statin, beta nely. Hold RADHA/ARB/CCB to prevent intra/postoperative vasoplegia 2. Encourage incentive spirometry use 3. STS risk score calculated and discussed with the patient 4. Increase activity, ambulate as tolerated. 5 meter walk test was completed by cardiac rehab yesterday 5. Smoking cessation counseling was offered, patient is strongly encouraged to quit smoking 6. Our plan is for surgical myocardial revascularization with left internal mammary, left endovascular radial artery harvest, endovascular vein harvest tomorrow 01/01/[address] Martinez 7. NPO after midnight 01/01/22 8. Sound physicians consulted for medical management per request of patient's primary care physician 9. More recommendations to follow Time with Patient: Less than 30
[2021-12-31] MEDS ORDERED: ISOSORBIDE MONONITRATE ER 30 MG TAB.ER.24H PO SCH (10:45)
--- NOTE | 2021-12-31 11:24 | PN ---
PROGRESS NOTE FOLLOW-UP NOTE: Robin is a 61-year-old gentleman who underwent cardiac catheterization and was found to have severe triple-vessel coronary artery disease and severe left main disease. This morning he is free of symptoms, denies any chest pain or difficulty in breathing. He is ambulating in the hallway without any problems. I am going to Hep-Lock his IV. On exam, heart rate is 59 beats per minute. He had one episode of blood pressure elevated at 170/82, but the rest of his pressures were normal. We will follow his blood pressures and if necessary we can add amlodipine 5 mg daily. Rest of his exam is unchanged. Labs show a hemoglobin of 14, platelet count is 255. Potassium is 4.5. Creatinine is 0.7. His LDL cholesterol is 94. ASSESSMENT AND PLAN: Severe three-vessel coronary artery disease. Patient will have bypass surgery on Tuesday. MMNICOLE / LAURAN: [id number] /
--- NOTE | 2021-12-31 12:05 | P.PN ---
<Nguyen Gerber - Last Filed: 12/31/21 12:01> Subjective Progress Note Date: 12/31/21 61-year-old male patient of Dr. Lee, with current and ongoing history of tobacco dependence, hypertension, hyperlipidemia, occasional drinker and marijuana user. Patient had been experiencing symptoms of shortness of breath and chest pain and was undergoing outpatient treadmill stress test when he developed shortness of breath and chest pain and the stress test was stopped early. He also developed EKG changes with ST depression in the inferolateral leads and was recommended to undergo heart catheterization which was completed t sea on 12/29/2021 showing 70% left main stenosis, 90% RCA stenosis, 90% circumflex stenosis and distal LAD stenosis of 70-80%. Echocardiogram was completed showing preserved EF of 55%, mild mitral and mild tricuspid regurgitation. Cardiothoracic surgery was consulted for evaluation of for possibility of surgical revascularization. And that we were consulted for pulmonary evaluation and pulmonary critical care management in the postoperative period. Chest CT showed clear lungs with no evidence of pulmonary mass, no pleural effusion, heart size was normal no pericardial effusion. Thoracic aorta was intact, no evidence of aneurysm, no hilar masses, some coronary artery calcification. Carotid Doppler showed no hemodynamically significant stenosis of internal carotid arteries. CBC was within normal limits, his white blood cell count was 9.0, hemoglobin of 13.9, electrolytes and renal profile were unremarkable, urinalysis was negative, COVID-19 PCR was negative. His preop FEV1 is pending, patient is being evaluated for possibility of bypass grafting. The patient is seen today 12/30/2021 in follow-up on the selective care unit. He's been up ambulating in the hallways. Doing very well. No chest discomfort. No shortness of breath. Maintaining good O2 saturations in the 90s on room air. He's been afebrile. Hemodynamically stable. He is continued on statins, beta blockers, aspirin. White count 6.9. Hemoglobin 14.1. INR 0.9. Sodium 139. Potassium 4.6. BUN 13. Creatinine 0.70. AST 20. ALT 17. Coronal virus by PCR not detected. Hepatitis screen negative. Urinalysis negative. The patient is seen today 12/31/2021 in follow-up on the selective care unit. He's up ambulating in his room. Awake and alert in no acute distress. He denies any chest pain, palpitations, lightheadedness or dizziness. No shortness of breath, cough or congestion. His FEV1 value is 81% of predicted. He is working well with the incentive spirometer. Currently pulling 2500 ML's. White count 6.9. Hemoglobin 14.0. Sodium 140. Potassium 4.5. BUN 11. Creatinine 0.70. He remains on statins, beta blockers, nitrates and aspirin. Objective - Vital Signs Vital signs: Vital Signs Temp 96.9 F L 12/31/21 08:18 Pulse 51 L 12/31/21 11:05 Resp 17 12/31/21 11:05 BP 146/72 12/31/21 11:05 Pulse Ox 97 12/31/21 11:05 Intake & Output 12/30/21 12/31/21 12/31/21 18:59 06:59 18:59 Intake Total 1080 540 260 Balance 1080 540 260 Weight 79.4 kg Intake: IV 600 Sodium Chloride 0.9% 1, 600 000 ml @ 75 mls/hr IV . [id number] [facility] Rx#:[id number] Oral 480 540 260 Other: Voiding Method Toilet Toilet # Voids 1 - Exam GENERAL EXAM: Alert, active, very pleasant 61-year-old male patient, on room air, comfortable in no apparent distress. HEAD: Normocephalic. EYES: Normal reaction of pupils, equal size. NOSE: Clear with pink turbinates. THROAT: No erythema or exudates. NECK: No masses, no JVD. CHEST: No chest wall deformity. LUNGS: Equal air entry with no crackles, wheeze, rhonchi or dullness. CVS: S1 and S2 normal with no audible murmur, regular rhythm. ABDOMEN: No hepatosplenomegaly, normal bowel sounds, no guarding or rigidity. SPINE: No scoliosis or deformity SKIN: No rashes CENTRAL NERVOUS SYSTEM: No focal deficits, tone is normal in all 4 extremities. EXTREMITIES: There is no peripheral edema. No clubbing, no cyanosis. Peripheral pulses are intact. - Labs CBC & Chem 7: 12/31/21 06:51 12/31/21 06:51 Labs: Abnormal Lab Results - Last 24 Hours (Table) 12/31/21 12/31/21 Range/Units 06:51 06:51 Chloride 108 H (98-107) mmol/L Crossmatch See Detail Microbiology - Last 24 Hours (Table) 12/29/21 13:41 Nasal Screen MRSA/MSSA - Final Nasal Swab Assessment and Plan Assessment: 1 Symptomatic multivessel coronary artery disease with left main disease, awaiting surgical evaluation for possibility of bypass grafting on 01/01/2022 2 History of hypertension 3 History of hyperlipidemia 4 Current and ongoing tobacco dependence 5 Family history of premature coronary artery disease 6 Occasional marijuana user Plan: The patient was seen and evaluated Currently stable and on room air FEV1 value 81% of predicted Again encouraged regarding the importance of complete smoking cessation He has been educated regarding the use of incentive spirometer We will continue to follow I, the cosigning physician, performed a history & physical examination of the patient. Lungs sounds are clear. Maintaining good O2 saturations in the 90s on room air. I discussed the assessment and plan of care with my nurse practitioner, Nguyen Gerber. I attest to the above note as dictated by her. I have personally seen and examined the patient, performed the documentation and the assessment and plan as written. Number of minutes spent on the visit: 10. <Sam Guo - Last Filed: 12/31/21 12:59> Objective - Vital Signs Vital signs: Vital Signs Temp 96.9 F L 12/31/21 08:18 Pulse 51 L 12/31/21 11:05 Resp 17 12/31/21 11:05 BP 146/72 12/31/21 11:05 Pulse Ox 97 12/31/21 11:05 Intake & Output 12/30/21 12/31/21 12/31/21 18:59 06:59 18:59 Intake Total 1080 540 620 Balance 9873 540 620 Weight 79.4 kg Intake: IV 600 Sodium Chloride 0.9% 1, 600 000 ml @ 75 mls/hr IV . [id number] [facility] Rx#:[id number] Oral [phone] Other: Voiding Method Toilet Toilet # Voids 1 - Labs CBC & Chem 7: 12/31/21 06:51 12/31/21 06:51 Labs: Abnormal Lab Results - Last 24 Hours (Table) 12/31/21 12/31/21 Range/Units 06:51 06:51 Chloride 108 H (98-107) mmol/L Crossmatch See Detail Microbiology - Last 24 Hours (Table) 12/29/21 13:41 Nasal Screen MRSA/MSSA - Final Nasal Swab Assessment and Plan Assessment: I have personally seen and examined the patient and reviewed the documentation. I performed a joint evaluation with the nurse practitioner in this evaluation was done more than 10 minutes. I fully agree with the documentation above and the plan of care. The patient is very comfortable. Ambulating. 70 chest pain. We'll proceed with surgery tomorrow
--- NOTE | 2021-12-31 13:42 | P.HPIM ---
History of Present Illness H&P Date: 12/31/21 Chief Complaint: Unstable Angina 61-year-old man with medical history of hypertension, hyperlipidemia, active smoker, occasional drinker, marijuana user presented with shortness of breath and chest pain. Patient was initially being treated in the outpatient setting, with stress test, which was stopped early due to evidence of ST depressions as well as shortness of breath and chest pain during exercise stress test on the treadmill. Patient was subsequently transferred to the hospital, where he underwent left heart catheterization, which demonstrated multivessel disease including 70% left main, 90% RCA, 90% left circumflex, distal LAD 70-80% stenosis. Patient was subsequently transferred inpatient, and CT surgery was consulted. Patient was worked up for CABG, and has plans to undergo surgery tomorrow, 01/01. Medicine was asked to be the admitting physician after 48 hours of hospitalization. Patient himself has no further complaints including the denial of fevers, chills, nausea, vomiting, chest pain, palpitations, sick be, presyncope, cough, dyspnea, abdominal pain, diarrhea, constipation, numbness/weakness of extremities. Patient is afebrile, 170/82, heart rate 59, 98% on room air. CBC and chemistries are unremarkable. UA was unremarkable. Covid was negative. Chronic hepatitis panel was nonreactive. Echocardiogram demonstrated EF greater than 55% with normal left ventricular size and no wall motion abnormality, mild MR, mild TR. CT of the chest showed no acute abnormality. Carotid Doppler was negative for stenosis. All Systems reviewed and pertinent positives and negatives noted in HPI, all other symptoms are negative Gen: awake, alert HEENT: normocephalic, atraumatic, good hearing acuity, moist mucous membranes Resp: good air exchange, breathing comfortably with no accessory muscle use, clear to auscultation bilaterally CVS: good distal perfusion x 4, regular rate and rhythm without murmurs GI: soft, NTTP, ND : no SPT, no CVAT, baker catheter not present MSK: no pitting edema, no clubbing Neuro: non-focal, moving all extremities Psych: cooperative, euthymic mood Labs and imaging were reviewed Assessment/plan: Unstable angina -Admit to inpatient, telemetry -Cardiology consulted -Pulmonary consulted -CT surgery consulted -Continue aspirin, statin -Continue beta nely, Imdur -Nitro when necessary Hypertension Hyperlipidemia Nicotine use Marijuana abuse -Home medications reviewed and reconciled -Amlodipine was resumed -Cessation counseling advised Patient is full code Past Medical History Past Medical History: Hyperlipidemia, Hypertension Additional Past Medical History / Comment(s): SEE H&P BY DR. MONTGOMERY FOR CARDIAC STATUS. History of Any Multi-Drug Resistant Organisms: None Reported Past Surgical History: No Surgical Hx Reported Additional Past Surgical History / Comment(s): TORN MENISCUS LEFT ARTHOSCOPIC Past Anesthesia/Blood Transfusion Reactions: No Reported Reaction Past Psychological History: No Psychological Hx Reported Smoking Status: Current every day smoker Past Alcohol Use History: Occasional Additional Past Alcohol Use History / Comment(s): SMOKED SINCE AGE 28 YRS. , 5-6 CIGS PER Past Drug Use History: Marijuana Medications and Allergies Home Medications Medication Instructions Recorded Confirmed Type Aspirin [Adult Low Dose Aspirin EC] 81 mg PO DAILY 04/02/20 12/29/21 History Atorvastatin Calcium [Lipitor] 10 mg PO HS 04/02/20 12/29/21 History Calcium Carbonate/Vitamin D3 1 tab PO DAILY 04/02/20 12/29/21 History [Calcium 600-Vit D3 200 Tablet] Krill/Laie-3/Dha/Epa/Lipids 1 cap PO DAILY 04/02/20 12/29/21 History [Krill Oil 350 mg Softgel] Losartan Potassium 100 mg PO HS 04/02/20 12/29/21 History Multivitamins, Thera [Multivitamin 1 tab PO DAILY 04/02/20 12/29/21 History (formulary)] Isosorbide Mononitrate [Isosorbide 30 mg PO DAILY 12/29/21 12/29/21 History Mononitrate ER] amLODIPine [Norvasc] 5 mg PO DAILY 12/29/21 12/29/21 History Allergies Allergy/AdvReac Type Severity Reaction Status Date / Time No Known Allergies Allergy Verified 12/29/21 06:36 Physical Exam Osteopathic Statement: *. No significant issues noted on an osteopathic structural exam other than those noted in the History and Physical/Consult. Vitals: Vital Signs Temp Pulse Resp BP Pulse Ox 12/31/21 11:05 51 L 17 146/72 97 12/31/21 08:18 96.9 F L 59 L 18 170/82 98 12/31/21 08:00 59 L 18 12/31/21 03:41 64 18 126/70 97 12/30/21 23:28 58 L 16 127/69 95 12/30/21 20:10 97.8 F 61 18 164/87 97 12/30/21 16:00 98.7 F 56 L 16 162/86 97 12/30/21 14:00 16 Intake and Output 12/30/21 12/31/21 12/31/21 22:59 06:59 14:59 Intake Total 540 620 Balance 540 620 Intake: Oral 540 620 Other: Voiding Method Toilet # Voids 1 Weight 79.4 kg Results CBC & Chem 7: 12/31/21 06:51 12/31/21 06:51 Labs: Abnormal Lab Results - Last 24 Hours (Table) 12/31/21 12/31/21 Range/Units 06:51 06:51 Chloride 108 H (98-107) mmol/L Crossmatch See Detail Microbiology - Last 24 Hours (Table) 12/29/21 13:41 Nasal Screen MRSA/MSSA - Final Nasal Swab Thrombosis Risk Factor Assmnt - Choose All That Apply Any of the Below Risk Factors Present?: Yes Each Factor Represents 1 point: Age 41-60 years Other Risk Factors: No Thrombosis Risk Factor Assessment Total Risk Factor Score: 1 Thrombosis Risk Factor Assessment Level: Low Risk
[2021-12-31] MEDS ORDERED: PHENYLEPHRINE 10 MG/ML VIAL IV ONE (15:08)
[2021-12-31] MEDS ORDERED: MD COMMUNICATION TO PHARMACY 1 EACH MISC PO ONE ×2 (15:08)
[2021-12-31] MEDS ORDERED: ELECTROLYTE-A SOLUTION 1,000 ML with POTASSIUM CHLORIDE 100 MEQ, MAGNESIUM SULFATE 16 M... IV SCH ×5 (15:15)
[2021-12-31] MEDS ORDERED: ELECTROLYTE-A SOLUTION 1,000 ML with POTASSIUM CHLORIDE 40 MEQ, MAGNESIUM SULFATE 16 ME... IV SCH ×5 (15:15)
[2022-01-01] MEDS ORDERED: LACTATED RINGERS 1,000 ML IV SCH ×2 (05:00→06:10)
[2022-01-01] MEDS ORDERED: ceFAZolin 1,000 MG in SODIUM CHLORIDE 0.9% IRRIGATIO 1,000 ML IRRIGATION ONE (05:00)
[2022-01-01] MEDS ORDERED: HEPARIN SODIUM,PORCINE 5,000 UNIT in SODIUM CHLORIDE 0.9% 500 ML 500 ML IV ONE (05:00)
[2022-01-01] MEDS ORDERED: NOREPINEPHRINE 4 MG in SODIUM CHLORIDE 0.9% 250 ML IV SCH ×2 (05:00→21:30)
[2022-01-01] MEDS ORDERED: HEPARIN SODIUM 1,000 UN/ML (10ML VL) IV ONE (05:00)
[2022-01-01] MEDS ORDERED: INSULIN REGULAR 100 UNIT in SODIUM CHLORIDE 0.9% 100 ML IV SCH ×2 (05:00→14:12)
[2022-01-01] MEDS ORDERED: ALBUMIN HUMAN 25% 50 ML in EMPTY BAG 1 BAG IVPB ONE (05:00)
[2022-01-01] MEDS ORDERED: ATORVASTATIN 10 MG TAB PO ONE (05:00)
[2022-01-01] MEDS ORDERED: DILTIAZEM 125 MG in SODIUM CHLORIDE 0.9% 100 ML IV SCH (05:00)
[2022-01-01] MEDS ORDERED: TRANEXAMIC ACID 2,000 MG in SODIUM CHLORIDE 0.9% 80 ML IV ONE (05:00)
[2022-01-01] MEDS ORDERED: PROTAMINE SULFATE 10 MG/ML 25 ML VIAL IV ONE (05:00)
[2022-01-01] MEDS ORDERED: METOPROLOL TARTRATE 12.5 MG TAB PO ONE (05:00)
[2022-01-01] MEDS ORDERED: MANNITOL 25% 12.5 GM/50 ML VIAL IV ONE ×2 (05:00)
[2022-01-01] MEDS ORDERED: PHENYLEPHRINE 40 MG in SODIUM CHLORIDE 0.9% 250 ML IV ONE (05:00)
[2022-01-01] MEDS ORDERED: PHENYLEPHRINE 10 MG/ML VIAL IV ONE (05:00)
[2022-01-01] MEDS ORDERED: NITROGLYCERIN-D5W PMX 50 MG in DEXTROSE/WATER 1 250ML.BAG IV SCH ×2 (05:00→14:12)
[2022-01-01] MEDS ORDERED: CHLORHEXIDINE GLUCONATE 15 ML CUP MUCOUS MEM ONE (05:00)
[2022-01-01] MEDS ORDERED: NITROGLYCERIN-D5W PMX 25 MG/250 ML BTL IV ONE (05:00)
[2022-01-01] MEDS ORDERED: PAPAVERINE 360 MG in SODIUM CHLORIDE 0.9% 90 ML IV ONE (05:00)
[2022-01-01] MEDS ORDERED: SODIUM BICARB 8.4% 50 ML SYR (1 MEQ/ML) IV ONE (05:00)
[2022-01-01] MEDS ORDERED: CALCIUM CHLORIDE 100 MG/ML 10 ML SYRINGE IVP ONE (05:00)
[2022-01-01] MEDS ORDERED: CLEVIDIPINE BUTYRATE 25 MG in EMPTY BAG 1 BAG IV SCH ×2 (05:00→14:12)
[2022-01-01] MEDS ORDERED: MAGNESIUM SULFATE 16.24 MEQ in EMPTY SYRINGE 1 SYR IV ONE (05:00)
[2022-01-01] MEDS ORDERED: ASPIRIN 325 MG TAB PO ONE (05:00)
[2022-01-01] MEDS ORDERED: PROTAMINE SULFATE 250 MG in EMPTY BAG 1 BAG IV ONE (05:00)
[2022-01-01] MEDS ORDERED: ALBUMIN HUMAN 5% 500 ML in EMPTY BAG 1 BAG IVPB ONE ×6 (05:00)
[2022-01-01 06:10] LABS: Glucose,Whole Blood 99 mg/dL (75-99)
[2022-01-01] MEDS ORDERED: MIDAZOLAM 2 MG/2 ML VIAL IV PRN (06:10)
[2022-01-01] MEDS ORDERED: SODIUM CHLORIDE 0.9% IRRIG 1,000 ML BTL IRRIGATION ONE (07:41)
[2022-01-01] MEDS ORDERED: ELECTROLYTE-R (PH 7.4) 1,000 ML IV.SOLN IV ONE (07:41)
--- NOTE | 2022-01-01 07:50 | P.PN ---
Progress Note - Text Patient will be followed by Dr. Rasmussen today and over the weekend Please call Dr. Rasmussen with all questions and concerns
[2022-01-01] MEDS ORDERED: CALCIUM CARB-VIT D 500 MG-5 MCG TAB PO SCH (09:00)
[2022-01-01] MEDS ORDERED: amLODIPine 5 MG TAB PO SCH (09:00)
[2022-01-01] MEDS ORDERED: MULTIVITAMINS, THERA 1 EACH TAB PO SCH (09:00)
[2022-01-01] MEDS ORDERED: DEXTROSE 5% IN WATER 100 ML with AMIODARONE 150 MG IV PRN (14:12)
[2022-01-01] MEDS ORDERED: Phosphorus Replacement Protoco 1 EACH MISC MISCELLANE PRN (14:12)
[2022-01-01] MEDS ORDERED: Magnesium Replacement Protocol 1 EACH MISC MISCELLANE PRN (14:12)
[2022-01-01] MEDS ORDERED: IPRATROPIUM-ALBUTEROL 3 ML NEB INHALATION PRN (14:12)
[2022-01-01] MEDS ORDERED: METOCLOPRAMIDE 5 MG/ML 2 ML VIAL IVP PRN (14:12)
[2022-01-01] MEDS ORDERED: AMIODARONE 450 MG in DEXTROSE 5% IN WATER 250 ML IV PRN ×2 (14:12)
[2022-01-01] MEDS ORDERED: DEXMEDETOMIDINE/0.9% NACL(PMX) 400 MCG in EMPTY BAG 1 BAG IV SCH (14:12)
[2022-01-01] MEDS ORDERED: ONDANSETRON 4 MG/2 ML VIAL IVP PRN (14:12)
[2022-01-01] MEDS ORDERED: BENZOCAINE/MENTHOL LOZENG 1 EACH LOZENGE MUCOUS MEM PRN (14:12)
[2022-01-01] MEDS ORDERED: Potassium Replacement Protocol 1 EACH MISC MISCELLANE PRN (14:12)
[2022-01-01] MEDS ORDERED: AMIODARONE 360 MG in DEXTROSE 5% IN WATER 200 ML IV PRN ×2 (14:12)
[2022-01-01] MEDS ORDERED: hydrALAZINE HCL 20 MG/ML 1 ML VIAL IVP PRN (14:12)
[2022-01-01 14:14] LABS: Glucose,Whole Blood 128 mg/dL (75-99)
[2022-01-01 14:19] LABS: ABG Base Excess -0.3 mmol/L; ABG HCO3 25 mmol/L (21-25); ABG Oxygen Saturation 99.5 % (94-97); ABG PCO2 44 mmHg (35-45); ABG PH 7.36 (7.35-7.45); ABG PO2 365 mmHg (83-108); ABG TCO2 26 mmol/L (19-24); Allen Test Performed? Yes
[2022-01-01 14:23] LABS: Basophils % (A) 0 %; Eosinophils # (A) 0.1 k/uL (0-0.7); Eosinophils % (A) 0 %; HCT 31.4 % (39.0-53.0); Lymphocytes % (A) 7 %; MCH 32.4 pg (25.0-35.0); MCHC 33.7 g/dL (31.0-37.0); MCV 96.1 fL (80.0-100.0); Monocytes # (A) 0.7 k/uL (0-1.0); Monocytes % (A) 5 %; Neutrophils # (A) 12.4 k/uL (1.3-7.7); Neutrophils % (A) 87 %; Platelet Count 147 k/uL (150-450); RBC 3.27 m/uL (4.30-5.90); RDW 12.5 % (11.5-15.5); WBC 14.2 k/uL (3.8-10.6)
[2022-01-01] MEDS: DILTIAZEM 125 MG in SODIUM CHLORIDE 0.9% 100 ML IV SCH (14:31)
[2022-01-01] MEDS: LACTATED RINGERS 1,000 ML IV SCH (14:31)
[2022-01-01] MEDS: SODIUM CHLORIDE 0.9% 1,000 ML IV SCH (14:33)
[2022-01-01 14:35] LABS: Ionized Calcium 4.6 mg/dL (4.5-5.3)
[2022-01-01 14:42] LABS: INR 1.1 (<1.2); Partial Thromboplastin Time 24.7 sec (22.0-30.0); Prothrombin Time 11.9 sec (9.0-12.0)
[2022-01-01 14:46] LABS: ALT 15 U/L (4-49); AST 36 U/L (17-59); African American GFR (CKD) >90 (>60 ml/min/1.73 sqM); Albumin 2.7 g/dL (3.5-5.0); Alkaline Phosphatase 31 U/L (38-126); Anion Gap 5 mmol/L; Blood Urea Nitrogen 13 mg/dL (9-20); Calcium 7.2 mg/dL (8.4-10.2); Carbon Dioxide 24 mmol/L (22-30); Chloride 110 mmol/L (98-107); Glucose 127 mg/dL (74-99); Magnesium 2.7 mg/dL (1.6-2.3); Non-African American GFR(CKD) >90 (>60 ml/min/1.73 sqM); Potassium 4.3 mmol/L (3.5-5.1); Sodium 139 mmol/L (137-145); Total Bilirubin 0.5 mg/dL (0.2-1.3); Total Protein 4.4 g/dL (6.3-8.2)
[2022-01-01 14:48] LABS: HGB 10.6 gm/dL (13.0-17.5)
--- NOTE | 2022-01-01 14:53 | OP ---
OPERATIVE REPORT DATE OF SURGERY: 01/01/2022 PREOPERATIVE DIAGNOSIS: Coronary artery disease. POSTOPERATIVE DIAGNOSIS: Coronary artery disease. PROCEDURE: 1. Coronary artery bypass grafting x4 vessels (left internal mammary artery to left anterior descending artery, radial artery to obtuse marginal artery, saphenous vein graft to diagonal artery, saphenous vein graft to posterior descending artery). 2. Endoscopic harvest of left radial artery. 3. Endoscopic harvest of left greater saphenous vein. 4. Ligation of left atrial appendage using 35 mm AtriClip. 5. Epiaortic ultrasound. 6. Transesophageal echocardiogram. SURGEON: Tadeo Martinez M.D. ASSISTANTS: 1. GABRIELLE Oleary. 2. Monico Stoner NP. ANESTHESIA: General. SPECIMEN: None. COMPLICATIONS: None. INDICATION: The patient is a 61-year-old male with a past medical history significant for hypertension and hyperlipidemia and a current smoker who reported shortness of breath as well as chest pain. He underwent a stress test which was found to be abnormal. Cardiac catheterization revealed multivessel coronary artery disease. A coronary artery bypass was recommended. The risks, benefits and alternatives of the procedure were discussed at length with the patient and his family. All of their questions were answered. Consent was obtained. FINDINGS: The left internal mammary artery was a good conduit with brisk flow. The saphenous vein was a good conduit. The radial artery was a good conduit. The LAD measured 1.3 mm in diameter. The diagonal artery measured 1.5 mm. The obtuse marginal artery measured 1.3 mm. The posterior descending artery measured 1.0 mm. PROCEDURE IN DETAIL: The patient was taken to the operating room and placed supine on the operating room table. After induction of general anesthesia, he was prepped and draped in the usual sterile fashion. Preoperative transesophageal cardiogram confirmed a preserved ejection fraction with no significant valvular pathology. A median sternotomy was performed. The left internal mammary artery was harvested in a standard fashion, taking care to clip all branches. Intravenous heparin was administered. The vessel was transected distally, revealing brisk flow. Simultaneously, greater saphenous vein was harvested from the left lower extremity using endoscopic technique. All branches were tied. In addition, radial artery was harvested from the left upper extremity using endoscopic technique. All branches were tied. A pericardial cradle was created. The ascending aorta was palpated. There was no significant calcific plaque noted. Epiaortic ultrasound was then performed on the ascending aorta. Again no calcific plaque or atheromatous disease was identified. An arterial cannula was placed in the distal ascending aorta. A venous cannula was placed through the right atrial appendage directed into the IVC. Both antegrade and retrograde catheters were placed as well. The patient was then placed on cardiopulmonary bypass with good decompression of the heart. The aortic cross-clamp was applied. Cold blood potassium cardioplegia was delivered in both antegrade and retrograde fashion to achieve arrest of the heart. Of note, cardioplegia was delivered every 15 to 20 minutes while the patient remained under crossclamp. I began by identifying the left atrial appendage. A 35 mm AtriClip was placed across its base to ensure ligation. Next, attention was turned to the inferior wall. Both the PDA and PLV were identified. Both were small in diameter. The PDA was dissected free. A small arteriotomy was created. This vessel accepted a 1.0 mm probe. Using saphenous vein in a reverse fashion, an end-to-side anastomosis was created. This was performed using running 7-0 Prolene suture. The graft was hemostatic and had a good flow. Next attention was turned to the anterior wall. Both OM branches were identified. The OM1 branch was dissected free. A small arteriotomy was created. This accepted a 1.0 mm probe. Using the radial artery, an end-to-side anastomosis was created. This was performed using a running 7-0 Prolene suture. The graft was hemostatic and had great flow. Finally attention was turned to the anterior wall. Both the diagonal artery and LAD were identified. The diagonal artery was dissected free. A small arteriotomy was created. This vessel accepted a 1.5 mm probe. Using saphenous vein in a reverse fashion, an end-to-side anastomosis was created. This was performed using running 7-0 Prolene suture. The graft was hemostatic and had a great flow. Finally, a small arteriotomy was created in the distal LAD beyond palpable plaque. This vessel accepted a 1.0 mm probe. Using the left internal mammary artery, an end-to-side anastomosis was created. This was performed using a running 8-0 Prolene suture. The graft was hemostatic. The mammary pedicle was then tacked down to the anterior surface of the heart. Attention was then turned to the proximal anastomoses. These were all performed in an end-to-side fashion using running 6-0 Prolene suture. One liter of warm blood was delivered in retrograde fashion. Both lidocaine and magnesium were administered as well. The aortic cross-clamp was removed. The vein grafts were de-aired in the standard fashion. Distal anastomoses were inspected and appeared to be hemostatic. Temporary atrial ventricular pacing wires were placed and brought through the skin. The patient was then weaned off cardiopulmonary bypass. He without difficulty. Follow-up transesophageal echocardiogram confirmed preserved ejection fraction. No pathology. Protamine was administered. There were no adverse reactions. The remaining cannulas were removed. The was copiously irrigated with warm saline solution. All surgical sites were inspected and appeared to be hemostatic. Soft tissue was reapproximated over the ascending aorta as well as over the apex of the heart. Chest tubes were placed in both the left pleural space and mediastinum. These were both secured to the skin using sutures. The sternum was then reapproximated using the Burnet cable system. The cables were placed in a figure-of- eight fashion. At the completion of the closure, the sternum was well aligned. The remainder of the wound was closed in layers. A sterile dressing was applied. The patient appeared to tolerate the procedure well. There were no immediate complications. He returned to the ICU in critical but stable condition. He did not receive any intraoperative blood products. MARIIA / MIHIR: [id number] /
--- NOTE | 2022-01-01 14:53 | XR ---
EXAMINATION TYPE: XR chest 1V portable DATE OF EXAM: 01/01/2022 COMPARISON: X-ray dated 12/22/2021 HISTORY: Postoperative cardiac surgery TECHNIQUE: Single frontal view of the chest is obtained. FINDINGS: The tip of the endotracheal tube is seen 4.9 cm proximal to the agus. NG tube is seen with the tip is below the diaphragm. Left intercostal drainage tube with the tip superimposed on the left upper yoselin ng zone. Right central venous line versus surgical drain with the tip superimposed on the heart, kind ly recheck its position. Elevated left hemidiaphragm. Left chest wall soft tissue swelling and emphysema. Left mid and lower l lidia zone linear atelectasis. Grossly unremarkable lungs otherwise. No sizable pleural effusion or def inite pneumothorax. No gross cardiomegaly. Aortic atherosclerotic calcifications. Sternotomy wire sut ures and cardiac clip. IMPRESSION: Postoperative changes with tube positioning as described above. A [place] critical message alert has been initiated for Sandrita Mendosa via the [email or web address] Results System on 01/01/2022 2:51 PM. This message alert has been sent to Sandrita Mendosa via the elicit ences provided by the clinician for the receipt of Radiology Critical Findings. Message ID [id number].
[2022-01-01 15:07] LABS: Glucose,Whole Blood 129 mg/dL (75-99)
--- NOTE | 2022-01-01 15:51 | P.PN ---
Subjective Progress Note Date: 01/01/22 Pt seen post-op, intubated, sedated. Had 4 vessel CABG. On AC 500, FiO2 50%, PEEP 5. On cardizem, clevidipine, insulin gtt, nitro gtt. Objective - Vital Signs Vital signs: Vital Signs Temp 98.3 F 01/01/22 06:09 Pulse 63 01/01/22 15:38 Resp 15 01/01/22 15:15 BP 111/60 01/01/22 15:15 Pulse Ox 99 01/01/22 15:15 Intake & Output 12/31/21 01/01/22 01/01/22 18:59 06:59 18:59 Intake Total 920 100 211 Output Total 1770 Balance 920 100 -1559 Intake: IV 100 211 CO/CI 40 Lactated Ringers 1,000 ml 100 @ 50 mls/hr IV .Q20H [facility] Rx#:[id number] Pressure Bag 18 Oral 920 Output: Chest Tube Drainage 65 MS/LP 65 Urine 1055 Estimated Blood Loss 650 Other: Voiding Method Toilet Indwelling Catheter # Voids 1 # Bowel Movements 1 ABP, PAP, CO, CI - Last Documented Arterial Blood Pressure 117/53 Pulmonary Artery Pressure 23/11 Cardiac Output 4.8 Cardiac Index 2.4 - Exam Gen: intubated, sedated HEENT: normocephalic, atraumatic, good hearing acuity, moist mucous membranes Resp: vent: AC 500, PEEP 5, FiO2 50% CVS: good distal perfusion x 4, regular rate and rhythm without murmurs GI: soft, NTTP, ND : no SPT, no CVAT, baker catheter not present MSK: no pitting edema, no clubbing - Labs CBC & Chem 7: 01/01/22 14:10 01/01/22 14:10 Labs: Abnormal Lab Results - Last 24 Hours (Table) 12/31/21 01/01/22 01/01/22 Range/Units 06:51 14:10 14:10 WBC 14.2 H (3.8-10.6) k/uL RBC 3.27 L (4.30-5.90) m/uL Hgb 10.6 L D (13.0-17.5) gm/dL Hct 31.4 L (39.0-53.0) % Plt Count 147 L (150-450) k/uL Neutrophils # 12.4 H (1.3-7.7) k/uL ABG pO2 (83-108) mmHg ABG Total CO2 (19-24) mmol/L ABG O2 Saturation (94-97) % Chloride 110 H (98-107) mmol/L Creatinine 0.61 L (0.66-1.25) mg/dL Glucose 127 H (74-99) mg/dL POC Glucose (mg/dL) (75-99) mg/dL Calcium 7.2 L (8.4-10.2) mg/dL Magnesium 2.7 H (1.6-2.3) mg/dL Alkaline Phosphatase 31 L (38-126) U/L Total Protein 4.4 L (6.3-8.2) g/dL Albumin 2.7 L (3.5-5.0) g/dL Crossmatch See Detail 01/01/22 01/01/22 01/01/22 Range/Units 14:11 14:12 15:05 WBC (3.8-10.6) k/uL RBC (4.30-5.90) m/uL Hgb (13.0-17.5) gm/dL Hct (39.0-53.0) % Plt Count (150-450) k/uL Neutrophils # (1.3-7.7) k/uL ABG pO2 365 H (83-108) mmHg ABG Total CO2 26 H (19-24) mmol/L ABG O2 Saturation 99.5 H (94-97) % Chloride (98-107) mmol/L Creatinine (0.66-1.25) mg/dL Glucose (74-99) mg/dL POC Glucose (mg/dL) 128 H 129 H (75-99) mg/dL Calcium (8.4-10.2) mg/dL Magnesium (1.6-2.3) mg/dL Alkaline Phosphatase (38-126) U/L Total Protein (6.3-8.2) g/dL Albumin (3.5-5.0) g/dL Crossmatch Assessment and Plan Assessment: Unstable angina -Admit to inpatient, telemetry -Cardiology consulted -Pulmonary consulted -CT surgery consulted -Continue aspirin, statin -Continue beta nely, Imdur -Nitro gtt -Clevidipine -Vent management per pulm -cardizem gtt -insulin gtt for 48 hours Hypertension Hyperlipidemia Nicotine use Marijuana abuse -Home medications reviewed and reconciled -Amlodipine was resumed -Cessation counseling advised Patient is full code
[2022-01-01] MEDS ORDERED: IPRATROPIUM-ALBUTEROL 3 ML NEB INHALATION SCH (16:00)
--- NOTE | 2022-01-01 16:02 | P.PN ---
Subjective Progress Note Date: 01/01/22 01/01/2022, THE PATIENT IS POSTOP DAY #0. I SAW THE PATIENT IMMEDIATELY AFTER HE ARRIVED FROM THE OPERATING ROOM. HE UNDERWENT DEWEY TO LAD RADIAL TO ACUTE MARGINAL AND SAPHENOUS VEIN GRAFT TO DIAGONAL AND PDA. PATIENT IS CURRENTLY ON PROPOFOL, he is well sedated and calm and comfortable. He is on a mechanical ventilator. He is an assist-control mode at a rate of 12, tidal volume of 500, FiO2 of 50% with a PEEP of 5. FiO2 was dropped from 100% on to 50% as the patient's blood gases showed a pH of 7.36 with a pCO2 of 44 and a pO2 of 365. The patient a cardiac output of 4.8 with an index of 2.4 with a pulmonary artery pressures of 19/10. The patient is on fire Cardizem drip at 5 mg an hour and Atrovent nitroglycerin drip at 5 mg/m and the patient is also on lactated Ringer at the rate of 50 mL an hour. The patient has a mediastinal and the left pleural chest tube. Output has been in the order of 70 mL since his arrival from the operating room. The patient is in sinus rhythm. Urine output is adequate for now. Height is afebrile. No other significant events otherwise for now. The blood work shows a white cell count of 14.2 with a hemoglobin of 10.6 and a platelet count of 147. Creatinine is at 0.6. Objective - Vital Signs Vital signs: Vital Signs Temp 98.3 F 01/01/22 06:09 Pulse 63 01/01/22 15:38 Resp 15 01/01/22 15:15 BP 111/60 01/01/22 15:15 Pulse Ox 99 01/01/22 15:15 Intake & Output 12/31/21 01/01/22 01/01/22 18:59 06:59 18:59 Intake Total 920 100 211 Output Total 1770 Balance 920 100 -1559 Intake: IV 100 211 CO/CI 40 Lactated Ringers 1,000 ml 100 @ 50 mls/hr IV .Q20H [facility] Rx#:[id number] Pressure Bag 18 Oral 920 Output: Chest Tube Drainage 65 MS/LP 65 Urine 1055 Estimated Blood Loss 650 Other: Voiding Method Toilet Indwelling Catheter # Voids 1 # Bowel Movements 1 ABP, PAP, CO, CI - Last Documented Arterial Blood Pressure 117/53 Pulmonary Artery Pressure 23/11 Cardiac Output 4.8 Cardiac Index 2.4 - Exam The patient is currently intubated on a mechanical ventilator, sedated, comfo rtable Head exam was generally normal. There was no scleral icterus or corneal arcus. Mucous membranes were moist. Neck was supple and without jugular venous distension, thyromegaly, or carotid bruits. Carotids were easily palpable bilaterally. There was no adenopathy. The patient has a right IJ Onarga-Sumi catheter in place. Cardiac exam revealed the PMI to be normally situated and sized. The rhythm was regular and no extrasystoles were noted during several minutes of auscultation. The first and second heart sounds were normal and physiologic splitting of the second heart sound was noted. There were no murmurs, rubs, clicks, or gallops. Sternum stable clean and intact and the patient has epi cardial wires. Lungs were clear to auscultation and percussion, and with normal diaphragmatic excursion. No wheezes or rales were noted. The patient has a mediastinal and left pleural chest tube. Abdominal exam revealed normal bowel sounds. The abdomen was soft, non-tender, and without masses, organomegaly, or appreciable enlargement of the abdominal aorta. Examination of the extremities revealed easily palpable radial, femoral and pedal pulses. There was no cyanosis, clubbing or edema. Examination of the skin revealed no evidence of significant rashes, suspicious appearing nevi or other concerning lesions. Neurologically the patient is arousable from his underlying sedation. He is moving all 4 extremities without any limitation. - Labs CBC & Chem 7: 01/01/22 14:10 01/01/22 14:10 Labs: Abnormal Lab Results - Last 24 Hours (Table) 12/31/21 01/01/22 01/01/22 Range/Units 06:51 14:10 14:10 WBC 14.2 H (3.8-10.6) k/uL RBC 3.27 L (4.30-5.90) m/uL Hgb 10.6 L D (13.0-17.5) gm/dL Hct 31.4 L (39.0-53.0) % Plt Count 147 L (150-450) k/uL Neutrophils # 12.4 H (1.3-7.7) k/uL ABG pO2 (83-108) mmHg ABG Total CO2 (19-24) mmol/L ABG O2 Saturation (94-97) % Chloride 110 H (98-107) mmol/L Creatinine 0.61 L (0.66-1.25) mg/dL Glucose 127 H (74-99) mg/dL POC Glucose (mg/dL) (75-99) mg/dL Calcium 7.2 L (8.4-10.2) mg/dL Magnesium 2.7 H (1.6-2.3) mg/dL Alkaline Phosphatase 31 L (38-126) U/L Total Protein 4.4 L (6.3-8.2) g/dL Albumin 2.7 L (3.5-5.0) g/dL Crossmatch See Detail 01/01/22 01/01/22 01/01/22 Range/Units 14:11 14:12 15:05 WBC (3.8-10.6) k/uL RBC (4.30-5.90) m/uL Hgb (13.0-17.5) gm/dL Hct (39.0-53.0) % Plt Count (150-450) k/uL Neutrophils # (1.3-7.7) k/uL ABG pO2 365 H (83-108) mmHg ABG Total CO2 26 H (19-24) mmol/L ABG O2 Saturation 99.5 H (94-97) % Chloride (98-107) mmol/L Creatinine (0.66-1.25) mg/dL Glucose (74-99) mg/dL POC Glucose (mg/dL) 128 H 129 H (75-99) mg/dL Calcium (8.4-10.2) mg/dL Magnesium (1.6-2.3) mg/dL Alkaline Phosphatase (38-126) U/L Total Protein (6.3-8.2) g/dL Albumin (3.5-5.0) g/dL Crossmatch Assessment and Plan Assessment: 1 symptomatic multivessel coronary artery disease involving left main. The patient underwent four-vessel bypass surgery including DEWEY to LAD and radial artery graft to acute marginal and SVG to diagonal and PDA. The patient is postop day #0. The patient is hemodynamically stable. The patient is on no pressors at this point in time. The patient on a Cardizem drip at 5 g an hour and nitroglycerin drip. Adequate cardiac output and index for now. 2 post thoracotomy. The patient is on a mechanical ventilator. Chest tubes are in place. Chest x-ray was noted. Blood gases was noted. 3 history of hypertension 4 history of hyperlipidemia 5 history of marijuana smoking Plan Continue ventilator support and drop the FiO2 as tolerated to maintain a saturation above 90% Wean off sedation and check weaning parameters and assess the readiness to wean Anticipated exhibition within the next few hours Output from the chest tubes are minimal Hemodynamically stable Continue the Cardizem drip We'll continue to follow make further recommendations. Anticipate extubation within next hour or so.
[2022-01-01 16:14] LABS: Glucose,Whole Blood 124 mg/dL (75-99)
[2022-01-01] MEDS: ALBUMIN HUMAN 5% 250 ML in EMPTY BAG 1 BAG IVPB PRN ×6 (16:14→21:07)
[2022-01-01] MEDS: ACETAMINOPHEN IV (For NPO) 1,000 MG in EMPTY BAG 1 BAG IVPB SCH ×2 (16:28→23:44)
[2022-01-01 16:37] LABS: Basophils % (A) 0 %; Eosinophils % (A) 0 %; HCT 30.7 % (39.0-53.0); HGB 10.3 gm/dL (13.0-17.5); Lymphocytes # (A) 0.6 k/uL (1.0-4.8); Lymphocytes % (A) 5 %; MCH 32.3 pg (25.0-35.0); MCHC 33.7 g/dL (31.0-37.0); Mean Platelet Volume 8.5; Monocytes # (A) 0.7 k/uL (0-1.0); Monocytes % (A) 5 %; Neutrophils # (A) 12.2 k/uL (1.3-7.7); Neutrophils % (A) 90 %; Platelet Count 172 k/uL (150-450); RDW 13.5 % (11.5-15.5); WBC 13.6 k/uL (3.8-10.6)
[2022-01-01 17:04] LABS: Glucose,Whole Blood 136 mg/dL (75-99)
[2022-01-01] MEDS: HEPARIN SODIUM,PORCINE/PF 5,000 UNIT/0.5 ML SYRINGE SQ SCH ×2 (17:10→23:43)
[2022-01-01] MEDS: KETOROLAC 30 MG/ML 1 ML VIAL IVP SCH ×2 (17:10→23:43)
[2022-01-01 18:06] LABS: Glucose,Whole Blood 118 mg/dL (75-99)
[2022-01-01 19:15] LABS: Glucose,Whole Blood 112 mg/dL (75-99)
[2022-01-01] MEDS: IPRATROPIUM-ALBUTEROL 3 ML NEB INHALATION SCH (19:30)
[2022-01-01 19:48] LABS: Glucose,Whole Blood 123 mg/dL (75-99)
[2022-01-01 20:07] LABS: Basophils % (A) 0 %; Eosinophils % (A) 0 %; HCT 27.1 % (39.0-53.0); HGB 8.9 gm/dL (13.0-17.5); Lymphocytes # (A) 0.4 k/uL (1.0-4.8); Lymphocytes % (A) 4 %; MCH 31.5 pg (25.0-35.0); MCHC 32.8 g/dL (31.0-37.0); Mean Platelet Volume 8.6; Monocytes # (A) 0.5 k/uL (0-1.0); Monocytes % (A) 5 %; Neutrophils # (A) 8.6 k/uL (1.3-7.7); Neutrophils % (A) 90 %; Platelet Count 141 k/uL (150-450); RBC 2.83 m/uL (4.30-5.90); RDW 13.5 % (11.5-15.5); WBC 9.5 k/uL (3.8-10.6)
[2022-01-01 20:49] LABS: Glucose,Whole Blood 142 mg/dL (75-99)
[2022-01-01 22:10] LABS: Glucose,Whole Blood 142 mg/dL (75-99)
[2022-01-01 22:56] LABS: Glucose,Whole Blood 126 mg/dL (75-99)
[2022-01-02 00:01] LABS: Glucose,Whole Blood 118 mg/dL (75-99)
[2022-01-02 01:11] LABS: Glucose,Whole Blood 122 mg/dL (75-99)
[2022-01-02] MEDS: HYDROcodone/APAP 5-325MG 1 EACH TAB PO PRN ×6 (02:01→20:53)
[2022-01-02 02:09] LABS: Glucose,Whole Blood 130 mg/dL (75-99)
[2022-01-02 03:02] LABS: Glucose,Whole Blood 127 mg/dL (75-99)
[2022-01-02 04:00] LABS: Glucose,Whole Blood 117 mg/dL (75-99)
[2022-01-02 04:13] LABS: Basophils % (A) 0 %; Eosinophils % (A) 0 %; HCT 24.9 % (39.0-53.0); HGB 8.4 gm/dL (13.0-17.5); Lymphocytes # (A) 1.2 k/uL (1.0-4.8); Lymphocytes % (A) 14 %; MCH 32.3 pg (25.0-35.0); MCHC 33.7 g/dL (31.0-37.0); MCV 95.6 fL (80.0-100.0); Mean Platelet Volume 7.9; Monocytes # (A) 0.5 k/uL (0-1.0); Monocytes % (A) 6 %; Neutrophils # (A) 6.8 k/uL (1.3-7.7); Neutrophils % (A) 78 %; Platelet Count 139 k/uL (150-450); RBC 2.61 m/uL (4.30-5.90); RDW 12.6 % (11.5-15.5); WBC 8.6 k/uL (3.8-10.6)
[2022-01-02 04:23] LABS: Ionized Calcium 4.5 mg/dL (4.5-5.3)
[2022-01-02 04:41] LABS: ALT 14 U/L (4-49); AST 41 U/L (17-59); African American GFR (CKD) >90 (>60 ml/min/1.73 sqM); Albumin 3.4 g/dL (3.5-5.0); Alkaline Phosphatase 25 U/L (38-126); Anion Gap 6 mmol/L; Blood Urea Nitrogen 17 mg/dL (9-20); Calcium 7.4 mg/dL (8.4-10.2); Carbon Dioxide 24 mmol/L (22-30); Chloride 109 mmol/L (98-107); Glucose 108 mg/dL (74-99); Magnesium 2.4 mg/dL (1.6-2.3); Non-African American GFR(CKD) >90 (>60 ml/min/1.73 sqM); Potassium 4.1 mmol/L (3.5-5.1); Sodium 139 mmol/L (137-145); Total Bilirubin 0.7 mg/dL (0.2-1.3)
[2022-01-02 05:05] LABS: Glucose,Whole Blood 117 mg/dL (75-99)
[2022-01-02] MEDS: KETOROLAC 30 MG/ML 1 ML VIAL IVP SCH ×4 (05:32→23:55)
[2022-01-02 06:02] LABS: Glucose,Whole Blood 126 mg/dL (75-99)
[2022-01-02] MEDS: ALBUMIN HUMAN 5% 250 ML in EMPTY BAG 1 BAG IVPB PRN (06:23)
[2022-01-02 06:56] LABS: Glucose,Whole Blood 125 mg/dL (75-99)
--- NOTE | 2022-01-02 07:13 | XR ---
EXAMINATION TYPE: XR chest 1V portable DATE OF EXAM: 01/02/2022 HISTORY: Post Op CABG COMPARISON: 01/01/2022 TECHNIQUE: Single view of the chest is submitted. FINDINGS: Endotracheal tube and NG tube have been removed. Patriot-Sumi catheter and mediastinal drains and left-s ided chest tube remain in place. Post operative changes of CABG. No sizeable pneumothorax. Scattered Pleural-parenchymal opacities may reflect atelectasis. Cardiomegaly. IMPRESSION: 1. Post operative changes of CABG.
[2022-01-02] MEDS ORDERED: fentaNYL (PF) 50 MCG/ML 2 ML AMP IVP STA (07:16)
[2022-01-02] MEDS: IPRATROPIUM-ALBUTEROL 3 ML NEB INHALATION SCH ×4 (08:06→19:02)
[2022-01-02] MEDS: METOPROLOL TARTRATE 12.5 MG TAB PO SCH ×2 (08:22→20:54)
[2022-01-02] MEDS: PANTOPRAZOLE 40 MG/10 ML VIAL IVP SCH (08:22)
[2022-01-02] MEDS: ATORVASTATIN 40 MG TAB PO SCH (08:22)
[2022-01-02] MEDS: ASPIRIN 325 MG TAB PO SCH (08:22)
[2022-01-02] MEDS: HEPARIN SODIUM,PORCINE/PF 5,000 UNIT/0.5 ML SYRINGE SQ SCH ×3 (08:22→23:55)
[2022-01-02] MEDS: CLOPIDOGREL 75 MG TAB PO SCH (08:22)
[2022-01-02 08:34] LABS: Glucose,Whole Blood 173 mg/dL (75-99)
[2022-01-02] MEDS ORDERED: MAGNESIUM HYDROXIDE 2,400 MG/10 ML CUP PO PRN (09:00)
[2022-01-02] MEDS ORDERED: bisacodyL 10 MG SUPP RECTAL PRN (09:00)
--- NOTE | 2022-01-02 09:04 | P.PN ---
Subjective Progress Note Date: 01/02/22 Principal diagnosis: Multivessel coronary artery disease with left main disease. Past medical history significant for hypertension, hyperlipidemia, chronic ongoing tobacco dependence, and family history of premature coronary artery disease with mother having her first CABG at 56 years old. Remains unvaccinated from covid-19. POD #1 coronary artery bypass grafting 4 vessels with left internal mammary artery to left anterior descending coronary artery, radial artery to the obtuse marginal coronary artery, a reverse greater saphenous vein graft to the diagonal coronary artery and a reverse greater saphenous vein graft to the posterior descending coronary artery. Endoscopic harvesting of the left radial artery. Endoscopic harvesting of the left greater saphenous vein. Ligation of the left atrial appendage using a 35 mm Atriclip. Intraoperative epi-aortic ultrasound and transesophageal echocardiogram. Postoperative acute blood loss anemia, expected given hemodilution and cardiopulmonary bypass. The patient is seen in follow-up today 01/02/2022 at his bedside in the intensive care unit. Currently he is sitting up to the bedside chair, is awake, alert, oriented 3 and is in no acute apparent distress. He was successfully extubated at 4:45 PM yesterday 01/01/2022, he is currently on 2 L nasal cannula with oxygen saturations 95%. He is achieving 750 mL to 1000 mL on his incentive spirometry with encouragement. He denies any complaints of shortness of breath at this time although is complaining of some surgical type pain to his chest tube insertion sites. He is rating his pain 5 out 10 on the pain scale. Right IJ Cordis and [place]-Sumi catheter remain in place with current hemodynamic showing a PA pressure of 32/13, CVP 11, cardiac output 6.8 and cardiac index 3.4. Norepinephrine drip is infusing at 0.25 mcg/kg/m for blood pressure support. Bedside telemetry is showing normal sinus rhythm heart rate 80 BPM. Atrial and ventricular epicardial pacemaker wires remain in place with pacemaker on a VVI backup of 60 BPM. Cardizem drip remains infusing at 5 mg/h for radial artery spasm prophylaxis. Mediastinal and left pleural chest tubes remain in place to low continuous wall suction -20 cm H2O. No air leak is present. Ringing thin serosanguineous drainage with 490 mL output in the last 8 hours and 900 mL output since surgery. No new concerns. Objective - Vital Signs Vital signs: Vital Signs Temp 99.3 F 01/02/22 04:00 Pulse 80 01/02/22 07:00 Resp 21 01/02/22 07:00 BP 106/60 01/02/22 06:15 Pulse Ox 96 01/02/22 07:00 Intake & Output 01/01/22 01/02/22 01/02/22 18:59 06:59 18:59 Intake Total 137.905 6278.290 72.344 Output Total 2150 1250 Balance -4041.648 9106.290 72.344 Weight 82.4 kg Intake: IV 468 1995.0 ACETAMINOPHEN IV (For NPO 100 ) 1,000 mg In Empty Bag 1 bag @ 400 mls/hr IVPB Q6HR YANICK Rx#:[id number] Albumin Human 5% 250 ml 750 In Empty Bag 1 bag @ 250 mls/hr IVPB Q1HR PRN Rx#: [id number] CO/CI 120 200 Cardizem gtt 60 Lactated Ringers 1,000 ml 250 650 @ 50 mls/hr IV .Q20H YANICK Rx#:[id number] Nitro gtt 18.0 Pressure Bag 45 117 ceFAZolin 2 gm In Sodium 100 Chloride 0.9% 50 ml @ 100 mls/hr IVPB Q8HR YANICK Rx# :[id number] Intake, IV Titration 43.193 32.290 72.344 Amount Dexmedetomidine/0.9% NaCl 40.230 3.11 (Pmx) 400 mcg In Empty Bag 1 bag @ Titrate IV . Q0M YANICK Rx#:[id number] Insulin Regular 100 unit 2.963 8.181 In Sodium Chloride 0.9% 100 ml @ Per Protocol IV .Q0M YANICK Rx#:[id number] Nitroglycerin-D5w Pmx 50 25.075 mg In Dextrose/Water 1 250ml.bag @ 5 MCG/MIN 1.5 mls/hr IV .Q24H YANICK Rx#: [id number] Norepinephrine 4 mg In 20.999 47.269 Sodium Chloride 0.9% 250 ml @ 0.025 MCG/KG/MIN 7. 563 mls/hr IV .Q24H YANICK Rx#:[id number] Oral 750 Output: Chest Tube Drainage 220 680 MS/LP 220 680 Drainage 20 Left Arm 20 Urine 1280 550 Estimated Blood Loss 650 Other: Voiding Method Indwelling Catheter Indwelling Catheter ABP, PAP, CO, CI - Last Documented Arterial Blood Pressure 100/46 Pulmonary Artery Pressure 35/14 Cardiac Output 6.8 Cardiac Index 3.4 - Exam CONSTITUTIONAL: Sitting up to the bedside chair in the intensive care unit, appears comfortable, cooperative, no apparent acute distress. HEENT: Neck is supple, no JVD, no lymphadenopathy. Right IJ Cordis and [place]- Sumi catheter in place and functioning. RESPIRATORY: Lungs sounds essentially clear throughout, diminished to his bilateral bases. Respirations are symmetrical and nonlabored. Currently on 2 L nasal cannula with oxygen saturations 95%. Able to achieve 750 -1000 mL on his incentive spirometry. Strong cough. CARDIOVASCULAR: Regular rhythm and rate. S1 and S2 present, negative for S3, gallop or murmur. Sternum is stable. Palpable peripheral pulses bilaterally. No calf pain or tenderness noted. Heart hugger in place with patient demonstrating appropriate use. Knee-high PAWEL hose and sequential compression devices in place to his bilateral lower extremities. GASTROINTESTINAL: Abdomen soft, nontender, nondistended. Hypoactive bowel sounds present 4 quadrants. Tolerating diet. No guarding or rigidity. GENITOURINARY: Jamison present draining clear, yellow urine. Output 310 mL in the last 8 hours INTEGUMENTARY: Skin is warm and dry with no evidence of clubbing or cyanosis. Midline sternal incision clean dry and well approximated, covered with dry intact dressing. Left lower extremity EVH sites well approximated without redness or drainage. Left arm radial artery harvest sites clean, dry and approximated. No drainage or redness is present. NEUROLOGIC: Cranial nerves II through XII intact. No focal deficits. MUSKULOSKELETAL: Able to move all extremities, strength equal bilaterally, generalized weakness. PSYCHIATRIC: Alert and oriented to person place and time, appropriate affect, intact judgment and insight. INVASIVE LINES AND TUBES: Mediastinal/left pleural chest tubes present and connected to low continuous wall suction, no air leaks present. Mediastinal/left pleural chest tubes with 490 mL of thin serosanguineous drainage in the last 8 hours, 900 mL output since surgery. Atrial and ventricular epicardial pacemaker wires present, connected to generator, VVI backup rate 60 bpm. Right internal jugular [place]/Cordis, right radial arterial line present. Last CO 6.8, CI 3.4, PA 30/13 and CVP 11 mmHg. Left arm VINOD drain in place with scant thin serosanguineous drainage, 20 mL output in the last 8 hours. - Allied health notes Allied health notes reviewed: nursing - Labs CBC & Chem 7: 01/02/22 04:00 01/02/22 04:00 Labs: Abnormal Lab Results - Last 24 Hours (Table) 12/31/21 01/01/22 01/01/22 Range/Units 06:51 14:10 14:10 WBC 14.2 H (3.8-10.6) k/uL RBC 3.27 L (4.30-5.90) m/uL Hgb 10.6 L D (13.0-17.5) gm/dL Hct 31.4 L (39.0-53.0) % Plt Count 147 L (150-450) k/uL Neutrophils # 12.4 H (1.3-7.7) k/uL Lymphocytes # (1.0-4.8) k/uL ABG pO2 (83-108) mmHg ABG Total CO2 (19-24) mmol/L ABG O2 Saturation (94-97) % Chloride 110 H (98-107) mmol/L Creatinine 0.61 L (0.66-1.25) mg/dL Glucose 127 H (74-99) mg/dL POC Glucose (mg/dL) (75-99) mg/dL Calcium 7.2 L (8.4-10.2) mg/dL Magnesium 2.7 H (1.6-2.3) mg/dL Alkaline Phosphatase 31 L (38-126) U/L Total Protein 4.4 L (6.3-8.2) g/dL Albumin 2.7 L (3.5-5.0) g/dL Crossmatch See Detail 01/01/22 01/01/22 01/01/22 Range/Units 14:11 14:12 15:05 WBC (3.8-10.6) k/uL RBC (4.30-5.90) m/uL Hgb (13.0-17.5) gm/dL Hct (39.0-53.0) % Plt Count (150-450) k/uL Neutrophils # (1.3-7.7) k/uL Lymphocytes # (1.0-4.8) k/uL ABG pO2 365 H (83-108) mmHg ABG Total CO2 26 H (19-24) mmol/L ABG O2 Saturation 99.5 H (94-97) % Chloride (98-107) mmol/L Creatinine (0.66-1.25) mg/dL Glucose (74-99) mg/dL POC Glucose (mg/dL) 128 H 129 H (75-99) mg/dL Calcium (8.4-10.2) mg/dL Magnesium (1.6-2.3) mg/dL Alkaline Phosphatase (38-126) U/L Total Protein (6.3-8.2) g/dL Albumin (3.5-5.0) g/dL Crossmatch 01/01/22 01/01/22 01/01/22 Range/Units 16:12 16:28 17:03 WBC 13.6 H (3.8-10.6) k/uL RBC 3.20 L (4.30-5.90) m/uL Hgb 10.3 L (13.0-17.5) gm/dL Hct 30.7 L (39.0-53.0) % Plt Count (150-450) k/uL Neutrophils # 12.2 H (1.3-7.7) k/uL Lymphocytes # 0.6 L (1.0-4.8) k/uL ABG pO2 (83-108) mmHg ABG Total CO2 (19-24) mmol/L ABG O2 Saturation (94-97) % Chloride (98-107) mmol/L Creatinine (0.66-1.25) mg/dL Glucose (74-99) mg/dL POC Glucose (mg/dL) 124 H 136 H (75-99) mg/dL Calcium (8.4-10.2) mg/dL Magnesium (1.6-2.3) mg/dL Alkaline Phosphatase (38-126) U/L Total Protein (6.3-8.2) g/dL Albumin (3.5-5.0) g/dL Crossmatch 01/01/22 01/01/22 01/01/22 Range/Units 18:05 19:13 19:46 WBC (3.8-10.6) k/uL RBC (4.30-5.90) m/uL Hgb (13.0-17.5) gm/dL Hct (39.0-53.0) % Plt Count (150-450) k/uL Neutrophils # (1.3-7.7) k/uL Lymphocytes # (1.0-4.8) k/uL ABG pO2 (83-108) mmHg ABG Total CO2 (19-24) mmol/L ABG O2 Saturation (94-97) % Chloride (98-107) mmol/L Creatinine (0.66-1.25) mg/dL Glucose (74-99) mg/dL POC Glucose (mg/dL) 118 H 112 H 123 H (75-99) mg/dL Calcium (8.4-10.2) mg/dL Magnesium (1.6-2.3) mg/dL Alkaline Phosphatase (38-126) U/L Total Protein (6.3-8.2) g/dL Albumin (3.5-5.0) g/dL Crossmatch 01/01/22 01/01/22 01/01/22 Range/Units 19:53 20:48 21:59 WBC (3.8-10.6) k/uL RBC 2.83 L (4.30-5.90) m/uL Hgb 8.9 L (13.0-17.5) gm/dL Hct 27.1 L (39.0-53.0) % Plt Count 141 L (150-450) k/uL Neutrophils # 8.6 H (1.3-7.7) k/uL Lymphocytes # 0.4 L (1.0-4.8) k/uL ABG pO2 (83-108) mmHg ABG Total CO2 (19-24) mmol/L ABG O2 Saturation (94-97) % Chloride (98-107) mmol/L Creatinine (0.66-1.25) mg/dL Glucose (74-99) mg/dL POC Glucose (mg/dL) 142 H 142 H (75-99) mg/dL Calcium (8.4-10.2) mg/dL Magnesium (1.6-2.3) mg/dL Alkaline Phosphatase (38-126) U/L Total Protein (6.3-8.2) g/dL Albumin (3.5-5.0) g/dL Crossmatch 01/01/22 01/01/22 01/02/22 Range/Units 22:53 23:59 01:00 WBC (3.8-10.6) k/uL RBC (4.30-5.90) m/uL Hgb (13.0-17.5) gm/dL Hct (39.0-53.0) % Plt Count (150-450) k/uL Neutrophils # (1.3-7.7) k/uL Lymphocytes # (1.0-4.8) k/uL ABG pO2 (83-108) mmHg ABG Total CO2 (19-24) mmol/L ABG O2 Saturation (94-97) % Chloride (98-107) mmol/L Creatinine (0.66-1.25) mg/dL Glucose (74-99) mg/dL POC Glucose (mg/dL) 126 H 118 H 122 H (75-99) mg/dL Calcium (8.4-10.2) mg/dL Magnesium (1.6-2.3) mg/dL Alkaline Phosphatase (38-126) U/L Total Protein (6.3-8.2) g/dL Albumin (3.5-5.0) g/dL Crossmatch 01/02/22 01/02/22 01/02/22 Range/Units 02:07 03:00 03:58 WBC (3.8-10.6) k/uL RBC (4.30-5.90) m/uL Hgb (13.0-17.5) gm/dL Hct (39.0-53.0) % Plt Count (150-450) k/uL Neutrophils # (1.3-7.7) k/uL Lymphocytes # (1.0-4.8) k/uL ABG pO2 (83-108) mmHg ABG Total CO2 (19-24) mmol/L ABG O2 Saturation (94-97) % Chloride (98-107) mmol/L Creatinine (0.66-1.25) mg/dL Glucose (74-99) mg/dL POC Glucose (mg/dL) 130 H 127 H 117 H (75-99) mg/dL Calcium (8.4-10.2) mg/dL Magnesium (1.6-2.3) mg/dL Alkaline Phosphatase (38-126) U/L Total Protein (6.3-8.2) g/dL Albumin (3.5-5.0) g/dL Crossmatch 01/02/22 01/02/22 01/02/22 Range/Units 04:00 04:00 05:02 WBC (3.8-10.6) k/uL RBC 2.61 L (4.30-5.90) m/uL Hgb 8.4 L (13.0-17.5) gm/dL Hct 24.9 L (39.0-53.0) % Plt Count 139 L (150-450) k/uL Neutrophils # (1.3-7.7) k/uL Lymphocytes # (1.0-4.8) k/uL ABG pO2 (83-108) mmHg ABG Total CO2 (19-24) mmol/L ABG O2 Saturation (94-97) % Chloride 109 H (98-107) mmol/L Creatinine (0.66-1.25) mg/dL Glucose 108 H (74-99) mg/dL POC Glucose (mg/dL) 117 H (75-99) mg/dL Calcium 7.4 L (8.4-10.2) mg/dL Magnesium 2.4 H (1.6-2.3) mg/dL Alkaline Phosphatase 25 L (38-126) U/L Total Protein 5.0 L (6.3-8.2) g/dL Albumin 3.4 L (3.5-5.0) g/dL Crossmatch 01/02/22 01/02/22 Range/Units 06:01 06:54 WBC (3.8-10.6) k/uL RBC (4.30-5.90) m/uL Hgb (13.0-17.5) gm/dL Hct (39.0-53.0) % Plt Count (150-450) k/uL Neutrophils # (1.3-7.7) k/uL Lymphocytes # (1.0-4.8) k/uL ABG pO2 (83-108) mmHg ABG Total CO2 (19-24) mmol/L ABG O2 Saturation (94-97) % Chloride (98-107) mmol/L Creatinine (0.66-1.25) mg/dL Glucose (74-99) mg/dL POC Glucose (mg/dL) 126 H 125 H (75-99) mg/dL Calcium (8.4-10.2) mg/dL Magnesium (1.6-2.3) mg/dL Alkaline Phosphatase (38-126) U/L Total Protein (6.3-8.2) g/dL Albumin (3.5-5.0) g/dL Crossmatch - Imaging and Cardiology Chest x-ray: report reviewed, image reviewed Assessment and Plan Assessment: 1. Triple-vessel coronary artery disease with left main disease, unstable angina, status post four-vessel coronary artery bypass grafting surgery 2. History of hypertension 3. History of hyperlipidemia, treated 4. Chronic ongoing tobacco dependence 5. Family history of premature coronary artery disease with mother having her first CABG at 56 years old 6. Remains unvaccinated from covid-19 7. Postoperative acute blood loss anemia, expected given hemodilution and cardiopulmonary bypass Plan: 1. Continue aspirin, statin, Plavix, and beta nely. Will increase beta nely as tolerated. Hold parameters on beta blockers. 2. Discontinue norepinephrine drip. 3. Wean O2 as tolerated. Encourage incentive spirometry 10 times every hour while awake. Bronchodilators per pulmonology. 4. Increase activity, ambulate as tolerated. PT/OT/cardiac rehab consulted. 5. Will monitor daily labs and chest x-rays. Electrolyte replacement per protocol 6. GI/DVT prophylaxis. 7. Pain control with current medication regimen. Fentanyl 25 mg IV 1 now for additional pain control. 8. Discontinue [place]. Connect Cordis to continuous CVP monitoring. 9. Will discontinue VINOD drain to his left arm. 10. Keep mediastinal and left pleural chest tubes in place to low continuous wall suction -20 cm H2O for another 24 hours. 11. Continue Jamison catheter for another 24 hours for strict accurate intake and output. Daily weights 12. Smoking cessation counseling offered, encourage complete smoking cessation. 13. Insulin management per internal medicine service. Patient is not diabetic, preoperative hemoglobin A1c 5.9%, however he does need tight blood sugar control to promote sternal union and prevent infection. 14. Keep atrial and ventricular epicardial pacemaker wires in place and connected to back up to bedside pacemaker generator on a VVI of 60 BPM. 15. More recommendations to follow based on patient's clinical course. Time with Patient: Greater than 30
[2022-01-02 10:03] LABS: Glucose,Whole Blood 115 mg/dL (75-99)
--- NOTE | 2022-01-02 11:20 | P.PN ---
Subjective Progress Note Date: 01/02/22 Pt doing very well today. On 2L NC. BP and HR controlled. Pacing wires in place, but not required. Chest tubes in place, swan zoey in place, baker in place, art line in place. Plan for removing swan zoey today. Anticipating early ambulation with PT. Pt is in good spirits and appears comfortable on exam. POD 1 s/p 4v CABG. Objective - Vital Signs Vital signs: Vital Signs Temp 99.5 F 01/02/22 08:00 Pulse 68 01/02/22 10:00 Resp 25 H 01/02/22 10:00 BP 113/61 01/02/22 10:00 Pulse Ox 93 L 01/02/22 10:00 Intake & Output 01/01/22 01/02/22 01/02/22 18:59 06:59 18:59 Intake Total 446.548 2843.290 396.903 Output Total 2150 1250 175 Balance -7454.764 8096.290 221.903 Weight 82.4 kg Intake: IV 468 1995.0 72 ACETAMINOPHEN IV (For NPO 100 ) 1,000 mg In Empty Bag 1 bag @ 400 mls/hr IVPB Q6HR YANICK Rx#:[id number] Albumin Human 5% 250 ml 750 In Empty Bag 1 bag @ 250 mls/hr IVPB Q1HR PRN Rx#: [id number] CO/CI 120 200 30 Cardizem gtt 60 15 Lactated Ringers 1,000 ml 250 650 @ 20 mls/hr IV .Q24H YANICK Rx#:[id number] Nitro gtt 18.0 0 Pressure Bag 45 117 27 ceFAZolin 2 gm In Sodium 100 Chloride 0.9% 50 ml @ 100 mls/hr IVPB Q8HR YANICK Rx# :[id number] Intake, IV Titration 43.193 32.290 74.903 Amount Dexmedetomidine/0.9% NaCl 40.230 3.11 (Pmx) 400 mcg In Empty Bag 1 bag @ Titrate IV . Q0M YANICK Rx#:[id number] Insulin Regular 100 unit 2.963 8.181 2.559 In Sodium Chloride 0.9% 100 ml @ Per Protocol IV .Q0M YANICK Rx#:[id number] Nitroglycerin-D5w Pmx 50 25.075 mg In Dextrose/Water 1 250ml.bag @ 5 MCG/MIN 1.5 mls/hr IV .Q24H YANICK Rx#: [id number] Norepinephrine 4 mg In 20.999 47.269 Sodium Chloride 0.9% 250 ml @ 0.025 MCG/KG/MIN 7. 563 mls/hr IV .Q24H YANICK Rx#:[id number] Oral 750 250 Output: Chest Tube Drainage 220 680 80 MS/LP 220 680 80 Drainage 20 Left Arm 20 Urine 1280 550 95 Estimated Blood Loss 650 Other: Voiding Method Indwelling Catheter Indwelling Catheter Indwelling Catheter ABP, PAP, CO, CI - Last Documented Arterial Blood Pressure 113/48 Pulmonary Artery Pressure 34/18 Cardiac Output 6.8 Cardiac Index 3.4 - Exam Gen: awake, alert HEENT: normocephalic, atraumatic, good hearing acuity, moist mucous membranes Resp: good air exchange, no accessory muscle use CVS: good distal perfusion x 4, regular rate and rhythm without murmurs GI: soft, NTTP, ND : no SPT, no CVAT, baker catheter is present MSK: no pitting edema, no clubbing - Labs CBC & Chem 7: 01/02/22 04:00 01/02/22 04:00 Labs: Abnormal Lab Results - Last 24 Hours (Table) 12/31/21 01/01/22 01/01/22 Range/Units 06:51 14:10 14:10 WBC 14.2 H (3.8-10.6) k/uL RBC 3.27 L (4.30-5.90) m/uL Hgb 10.6 L D (13.0-17.5) gm/dL Hct 31.4 L (39.0-53.0) % Plt Count 147 L (150-450) k/uL Neutrophils # 12.4 H (1.3-7.7) k/uL Lymphocytes # (1.0-4.8) k/uL ABG pO2 (83-108) mmHg ABG Total CO2 (19-24) mmol/L ABG O2 Saturation (94-97) % Chloride 110 H (98-107) mmol/L Creatinine 0.61 L (0.66-1.25) mg/dL Glucose 127 H (74-99) mg/dL POC Glucose (mg/dL) (75-99) mg/dL Calcium 7.2 L (8.4-10.2) mg/dL Magnesium 2.7 H (1.6-2.3) mg/dL Alkaline Phosphatase 31 L (38-126) U/L Total Protein 4.4 L (6.3-8.2) g/dL Albumin 2.7 L (3.5-5.0) g/dL Crossmatch See Detail 01/01/22 01/01/22 01/01/22 Range/Units 14:11 14:12 15:05 WBC (3.8-10.6) k/uL RBC (4.30-5.90) m/uL Hgb (13.0-17.5) gm/dL Hct (39.0-53.0) % Plt Count (150-450) k/uL Neutrophils # (1.3-7.7) k/uL Lymphocytes # (1.0-4.8) k/uL ABG pO2 365 H (83-108) mmHg ABG Total CO2 26 H (19-24) mmol/L ABG O2 Saturation 99.5 H (94-97) % Chloride (98-107) mmol/L Creatinine (0.66-1.25) mg/dL Glucose (74-99) mg/dL POC Glucose (mg/dL) 128 H 129 H (75-99) mg/dL Calcium (8.4-10.2) mg/dL Magnesium (1.6-2.3) mg/dL Alkaline Phosphatase (38-126) U/L Total Protein (6.3-8.2) g/dL Albumin (3.5-5.0) g/dL Crossmatch 01/01/22 01/01/22 01/01/22 Range/Units 16:12 16:28 17:03 WBC 13.6 H (3.8-10.6) k/uL RBC 3.20 L (4.30-5.90) m/uL Hgb 10.3 L (13.0-17.5) gm/dL Hct 30.7 L (39.0-53.0) % Plt Count (150-450) k/uL Neutrophils # 12.2 H (1.3-7.7) k/uL Lymphocytes # 0.6 L (1.0-4.8) k/uL ABG pO2 (83-108) mmHg ABG Total CO2 (19-24) mmol/L ABG O2 Saturation (94-97) % Chloride (98-107) mmol/L Creatinine (0.66-1.25) mg/dL Glucose (74-99) mg/dL POC Glucose (mg/dL) 124 H 136 H (75-99) mg/dL Calcium (8.4-10.2) mg/dL Magnesium (1.6-2.3) mg/dL Alkaline Phosphatase (38-126) U/L Total Protein (6.3-8.2) g/dL Albumin (3.5-5.0) g/dL Crossmatch 01/01/22 01/01/22 01/01/22 Range/Units 18:05 19:13 19:46 WBC (3.8-10.6) k/uL RBC (4.30-5.90) m/uL Hgb (13.0-17.5) gm/dL Hct (39.0-53.0) % Plt Count (150-450) k/uL Neutrophils # (1.3-7.7) k/uL Lymphocytes # (1.0-4.8) k/uL ABG pO2 (83-108) mmHg ABG Total CO2 (19-24) mmol/L ABG O2 Saturation (94-97) % Chloride (98-107) mmol/L Creatinine (0.66-1.25) mg/dL Glucose (74-99) mg/dL POC Glucose (mg/dL) 118 H 112 H 123 H (75-99) mg/dL Calcium (8.4-10.2) mg/dL Magnesium (1.6-2.3) mg/dL Alkaline Phosphatase (38-126) U/L Total Protein (6.3-8.2) g/dL Albumin (3.5-5.0) g/dL Crossmatch 01/01/22 01/01/22 01/01/22 Range/Units 19:53 20:48 21:59 WBC (3.8-10.6) k/uL RBC 2.83 L (4.30-5.90) m/uL Hgb 8.9 L (13.0-17.5) gm/dL Hct 27.1 L (39.0-53.0) % Plt Count 141 L (150-450) k/uL Neutrophils # 8.6 H (1.3-7.7) k/uL Lymphocytes # 0.4 L (1.0-4.8) k/uL ABG pO2 (83-108) mmHg ABG Total CO2 (19-24) mmol/L ABG O2 Saturation (94-97) % Chloride (98-107) mmol/L Creatinine (0.66-1.25) mg/dL Glucose (74-99) mg/dL POC Glucose (mg/dL) 142 H 142 H (75-99) mg/dL Calcium (8.4-10.2) mg/dL Magnesium (1.6-2.3) mg/dL Alkaline Phosphatase (38-126) U/L Total Protein (6.3-8.2) g/dL Albumin (3.5-5.0) g/dL Crossmatch 01/01/22 01/01/22 01/02/22 Range/Units 22:53 23:59 01:00 WBC (3.8-10.6) k/uL RBC (4.30-5.90) m/uL Hgb (13.0-17.5) gm/dL Hct (39.0-53.0) % Plt Count (150-450) k/uL Neutrophils # (1.3-7.7) k/uL Lymphocytes # (1.0-4.8) k/uL ABG pO2 (83-108) mmHg ABG Total CO2 (19-24) mmol/L ABG O2 Saturation (94-97) % Chloride (98-107) mmol/L Creatinine (0.66-1.25) mg/dL Glucose (74-99) mg/dL POC Glucose (mg/dL) 126 H 118 H 122 H (75-99) mg/dL Calcium (8.4-10.2) mg/dL Magnesium (1.6-2.3) mg/dL Alkaline Phosphatase (38-126) U/L Total Protein (6.3-8.2) g/dL Albumin (3.5-5.0) g/dL Crossmatch 01/02/22 01/02/22 01/02/22 Range/Units 02:07 03:00 03:58 WBC (3.8-10.6) k/uL RBC (4.30-5.90) m/uL Hgb (13.0-17.5) gm/dL Hct (39.0-53.0) % Plt Count (150-450) k/uL Neutrophils # (1.3-7.7) k/uL Lymphocytes # (1.0-4.8) k/uL ABG pO2 (83-108) mmHg ABG Total CO2 (19-24) mmol/L ABG O2 Saturation (94-97) % Chloride (98-107) mmol/L Creatinine (0.66-1.25) mg/dL Glucose (74-99) mg/dL POC Glucose (mg/dL) 130 H 127 H 117 H (75-99) mg/dL Calcium (8.4-10.2) mg/dL Magnesium (1.6-2.3) mg/dL Alkaline Phosphatase (38-126) U/L Total Protein (6.3-8.2) g/dL Albumin (3.5-5.0) g/dL Crossmatch 01/02/22 01/02/22 01/02/22 Range/Units 04:00 04:00 05:02 WBC (3.8-10.6) k/uL RBC 2.61 L (4.30-5.90) m/uL Hgb 8.4 L (13.0-17.5) gm/dL Hct 24.9 L (39.0-53.0) % Plt Count 139 L (150-450) k/uL Neutrophils # (1.3-7.7) k/uL Lymphocytes # (1.0-4.8) k/uL ABG pO2 (83-108) mmHg ABG Total CO2 (19-24) mmol/L ABG O2 Saturation (94-97) % Chloride 109 H (98-107) mmol/L Creatinine (0.66-1.25) mg/dL Glucose 108 H (74-99) mg/dL POC Glucose (mg/dL) 117 H (75-99) mg/dL Calcium 7.4 L (8.4-10.2) mg/dL Magnesium 2.4 H (1.6-2.3) mg/dL Alkaline Phosphatase 25 L (38-126) U/L Total Protein 5.0 L (6.3-8.2) g/dL Albumin 3.4 L (3.5-5.0) g/dL Crossmatch 01/02/22 01/02/22 01/02/22 Range/Units 06:01 06:54 08:29 WBC (3.8-10.6) k/uL RBC (4.30-5.90) m/uL Hgb (13.0-17.5) gm/dL Hct (39.0-53.0) % Plt Count (150-450) k/uL Neutrophils # (1.3-7.7) k/uL Lymphocytes # (1.0-4.8) k/uL ABG pO2 (83-108) mmHg ABG Total CO2 (19-24) mmol/L ABG O2 Saturation (94-97) % Chloride (98-107) mmol/L Creatinine (0.66-1.25) mg/dL Glucose (74-99) mg/dL POC Glucose (mg/dL) 126 H 125 H 173 H (75-99) mg/dL Calcium (8.4-10.2) mg/dL Magnesium (1.6-2.3) mg/dL Alkaline Phosphatase (38-126) U/L Total Protein (6.3-8.2) g/dL Albumin (3.5-5.0) g/dL Crossmatch 01/02/22 Range/Units 10:01 WBC (3.8-10.6) k/uL RBC (4.30-5.90) m/uL Hgb (13.0-17.5) gm/dL Hct (39.0-53.0) % Plt Count (150-450) k/uL Neutrophils # (1.3-7.7) k/uL Lymphocytes # (1.0-4.8) k/uL ABG pO2 (83-108) mmHg ABG Total CO2 (19-24) mmol/L ABG O2 Saturation (94-97) % Chloride (98-107) mmol/L Creatinine (0.66-1.25) mg/dL Glucose (74-99) mg/dL POC Glucose (mg/dL) 115 H (75-99) mg/dL Calcium (8.4-10.2) mg/dL Magnesium (1.6-2.3) mg/dL Alkaline Phosphatase (38-126) U/L Total Protein (6.3-8.2) g/dL Albumin (3.5-5.0) g/dL Crossmatch Assessment and Plan Assessment: Unstable angina -Admit to inpatient, telemetry -Cardiology consulted -Pulmonary consulted -CT surgery consulted -Continue aspirin, statin -Continue beta nely, Imdur -Nitro gtt, stopped -cardizem gtt at 5mg/hr -insulin gtt for 48 hours Hypertension Hyperlipidemia Nicotine use Marijuana abuse -Home medications reviewed and reconciled -Amlodipine was resumed -Cessation counseling advised Patient is full code
[2022-01-02 11:32] LABS: Glucose,Whole Blood 130 mg/dL (75-99)
[2022-01-02 11:35] VITALS: BMI 26.0
[2022-01-02] MEDS: LACTATED RINGERS 1,000 ML IV SCH (11:45)
[2022-01-02 12:55] LABS: Glucose,Whole Blood 164 mg/dL (75-99)
[2022-01-02] MEDS: amLODIPine 2.5 MG TAB PO SCH ×2 (12:56→19:32)
--- NOTE | 2022-01-02 13:40 | P.PN ---
Subjective Progress Note Date: 01/02/22 01/01/2022, THE PATIENT IS POSTOP DAY #0. I SAW THE PATIENT IMMEDIATELY AFTER HE ARRIVED FROM THE OPERATING ROOM. HE UNDERWENT DEWEY TO LAD RADIAL TO ACUTE MARGINAL AND SAPHENOUS VEIN GRAFT TO DIAGONAL AND PDA. PATIENT IS CURRENTLY ON PROPOFOL, he is well sedated and calm and comfortable. He is on a mechanical ventilator. He is an assist-control mode at a rate of 12, tidal volume of 500, FiO2 of 50% with a PEEP of 5. FiO2 was dropped from 100% on to 50% as the patient's blood gases showed a pH of 7.36 with a pCO2 of 44 and a pO2 of 365. The patient a cardiac output of 4.8 with an index of 2.4 with a pulmonary artery pressures of 19/10. The patient is on fire Cardizem drip at 5 mg an hour and Atrovent nitroglycerin drip at 5 mg/m and the patient is also on lactated Ringer at the rate of 50 mL an hour. The patient has a mediastinal and the left pleural chest tube. Output has been in the order of 70 mL since his arrival from the operating room. The patient is in sinus rhythm. Urine output is adequate for now. Height is afebrile. No other significant events otherwise for now. The blood work shows a white cell count of 14.2 with a hemoglobin of 10.6 and a platelet count of 147. Creatinine is at 0.6. 01/02/2022, the patient is postop day #1. Patient remains extubated. This morning, the patient is sitting up on a chair and the patient is calm and comfortable without any major respiratory difficulties. He remains on oxygen at 2 L per minute nasal cannula. The patient was extubated without any major difficulties at around 4:45 PM in the afternoon yesterday. This morning, he remains extubated and he is currently on 2 L O2 nasal cannula. The patient's cardiac output is at 7 with an index of 3.5, pulmonary artery pressures are 32/17 with a CVP of 15. The left and the mediastinal chest tubes are attached total amount of output has been 6 on 60 mL over the past 12 hours. The patient remains on Cardizem and family grams an hour. Nitroglycerin drip has been d iscontinued. Remains on normal saline. He is using incentive spirometer pulling approximately 7 50 mL. The patient is awake and alert and there is no focal neurological deficit at this point in time. Cardiac rhythm remains sinus. The patient has a white cell count of 8.6 with a hemoglobin of 8.4. TPN is at 70 with a creatinine of 0.7 sodium level is at 139. Calcium level is at 7.4, LFTs are within normal limits. Objective - Vital Signs Vital signs: Vital Signs Temp 99.5 F 01/02/22 08:00 Pulse 67 01/02/22 13:00 Resp 30 H 01/02/22 13:00 BP 111/62 01/02/22 13:00 Pulse Ox 92 L 01/02/22 13:00 Intake & Output 01/01/22 01/02/22 01/02/22 18:59 06:59 18:59 Intake Total 342.981 9589.290 679.903 Output Total 2150 1250 355 Balance -5679.484 6542.290 324.903 Weight 82.4 kg 82.4 kg Intake: IV 468 1995.0 105 ACETAMINOPHEN IV (For NPO 100 ) 1,000 mg In Empty Bag 1 bag @ 400 mls/hr IVPB Q6HR YANICK Rx#:[id number] Albumin Human 5% 250 ml 750 In Empty Bag 1 bag @ 250 mls/hr IVPB Q1HR PRN Rx#: [id number] CO/CI 120 200 30 Cardizem gtt 60 30 Lactated Ringers 1,000 ml 250 650 @ 20 mls/hr IV .Q24H YANICK Rx#:[id number] Nitro gtt 18.0 0 Pressure Bag 45 117 45 ceFAZolin 2 gm In Sodium 100 Chloride 0.9% 50 ml @ 100 mls/hr IVPB Q8HR YANICK Rx# :[id number] Intake, IV Titration 43.193 32.290 74.903 Amount Dexmedetomidine/0.9% NaCl 40.230 3.11 (Pmx) 400 mcg In Empty Bag 1 bag @ Titrate IV . Q0M YANICK Rx#:[id number] Insulin Regular 100 unit 2.963 8.181 2.559 In Sodium Chloride 0.9% 100 ml @ Per Protocol IV .Q0M YANICK Rx#:[id number] Nitroglycerin-D5w Pmx 50 25.075 mg In Dextrose/Water 1 250ml.bag @ 5 MCG/MIN 1.5 mls/hr IV .Q24H YANICK Rx#: [id number] Norepinephrine 4 mg In 20.999 47.269 Sodium Chloride 0.9% 250 ml @ 0.025 MCG/KG/MIN 7. 563 mls/hr IV .Q24H YANICK Rx#:[id number] Oral 750 500 Output: Chest Tube Drainage 220 680 180 MS/LP 220 680 180 Drainage 20 Left Arm 20 Urine 1280 550 175 Estimated Blood Loss 650 Other: Voiding Method Indwelling Catheter Indwelling Catheter Indwelling Catheter ABP, PAP, CO, CI - Last Documented Arterial Blood Pressure 135/50 Pulmonary Artery Pressure 34/18 Cardiac Output 6.8 Cardiac Index 3.4 - Exam The patient is currently extubated at 2 L per minute nasal cannula Head exam was generally normal. There was no scleral icterus or corneal arcus. Mucous membranes were moist. Neck was supple and without jugular venous distension, thyromegaly, or carotid bruits. Carotids were easily palpable bilaterally. There was no adenopathy. The patient has a right IJ [place]-Sumi catheter in place. Cardiac exam revealed the PMI to be normally situated and sized. The rhythm was regular and no extrasystoles were noted during several minutes of auscultation. The first and second heart sounds were normal and physiologic splitting of the second heart sound was noted. There were no murmurs, rubs, clicks, or gallops. Sternum stable clean and intact and the patient has epi cardial wires. Lungs were clear to auscultation and percussion, and with normal diaphragmatic excursion. No wheezes or rales were noted. The patient has a mediastinal and left pleural chest tube. Abdominal exam revealed normal bowel sounds. The abdomen was soft, non-tender, and without masses, organomegaly, or appreciable enlargement of the abdominal aorta. Examination of the extremities revealed easily palpable radial, femoral and pedal pulses. There was no cyanosis, clubbing or edema. Examination of the skin revealed no evidence of significant rashes, suspicious appearing nevi or other concerning lesions. Neurologically the patient is awake and alert and following commands and answer ing questions appropriately - Labs CBC & Chem 7: 01/02/22 04:00 01/02/22 04:00 Labs: Abnormal Lab Results - Last 24 Hours (Table) 03/03/22 03/04/22 03/04/22 Range/Units 06:51 14:10 14:10 WBC 14.2 H (3.8-10.6) k/uL RBC 3.27 L (4.30-5.90) m/uL Hgb 10.6 L D (13.0-17.5) gm/dL Hct 31.4 L (39.0-53.0) % Plt Count 147 L (150-450) k/uL Neutrophils # 12.4 H (1.3-7.7) k/uL Lymphocytes # (1.0-4.8) k/uL ABG pO2 (83-108) mmHg ABG Total CO2 (19-24) mmol/L ABG O2 Saturation (94-97) % Chloride 110 H (98-107) mmol/L Creatinine 0.61 L (0.66-1.25) mg/dL Glucose 127 H (74-99) mg/dL POC Glucose (mg/dL) (75-99) mg/dL Calcium 7.2 L (8.4-10.2) mg/dL Magnesium 2.7 H (1.6-2.3) mg/dL Alkaline Phosphatase 31 L (38-126) U/L Total Protein 4.4 L (6.3-8.2) g/dL Albumin 2.7 L (3.5-5.0) g/dL Crossmatch See Detail 01/01/22 01/01/22 01/01/22 Range/Units 14:11 14:12 15:05 WBC (3.8-10.6) k/uL RBC (4.30-5.90) m/uL Hgb (13.0-17.5) gm/dL Hct (39.0-53.0) % Plt Count (150-450) k/uL Neutrophils # (1.3-7.7) k/uL Lymphocytes # (1.0-4.8) k/uL ABG pO2 365 H (83-108) mmHg ABG Total CO2 26 H (19-24) mmol/L ABG O2 Saturation 99.5 H (94-97) % Chloride (98-107) mmol/L Creatinine (0.66-1.25) mg/dL Glucose (74-99) mg/dL POC Glucose (mg/dL) 128 H 129 H (75-99) mg/dL Calcium (8.4-10.2) mg/dL Magnesium (1.6-2.3) mg/dL Alkaline Phosphatase (38-126) U/L Total Protein (6.3-8.2) g/dL Albumin (3.5-5.0) g/dL Crossmatch 01/01/22 01/01/22 01/01/22 Range/Units 16:12 16:28 17:03 WBC 13.6 H (3.8-10.6) k/uL RBC 3.20 L (4.30-5.90) m/uL Hgb 10.3 L (13.0-17.5) gm/dL Hct 30.7 L (39.0-53.0) % Plt Count (150-450) k/uL Neutrophils # 12.2 H (1.3-7.7) k/uL Lymphocytes # 0.6 L (1.0-4.8) k/uL ABG pO2 (83-108) mmHg ABG Total CO2 (19-24) mmol/L ABG O2 Saturation (94-97) % Chloride (98-107) mmol/L Creatinine (0.66-1.25) mg/dL Glucose (74-99) mg/dL POC Glucose (mg/dL) 124 H 136 H (75-99) mg/dL Calcium (8.4-10.2) mg/dL Magnesium (1.6-2.3) mg/dL Alkaline Phosphatase (38-126) U/L Total Protein (6.3-8.2) g/dL Albumin (3.5-5.0) g/dL Crossmatch 01/01/22 01/01/22 01/01/22 Range/Units 18:05 19:13 19:46 WBC (3.8-10.6) k/uL RBC (4.30-5.90) m/uL Hgb (13.0-17.5) gm/dL Hct (39.0-53.0) % Plt Count (150-450) k/uL Neutrophils # (1.3-7.7) k/uL Lymphocytes # (1.0-4.8) k/uL ABG pO2 (83-108) mmHg ABG Total CO2 (19-24) mmol/L ABG O2 Saturation (94-97) % Chloride (98-107) mmol/L Creatinine (0.66-1.25) mg/dL Glucose (74-99) mg/dL POC Glucose (mg/dL) 118 H 112 H 123 H (75-99) mg/dL Calcium (8.4-10.2) mg/dL Magnesium (1.6-2.3) mg/dL Alkaline Phosphatase (38-126) U/L Total Protein (6.3-8.2) g/dL Albumin (3.5-5.0) g/dL Crossmatch 01/01/22 01/01/22 01/01/22 Range/Units 19:53 20:48 21:59 WBC (3.8-10.6) k/uL RBC 2.83 L (4.30-5.90) m/uL Hgb 8.9 L (13.0-17.5) gm/dL Hct 27.1 L (39.0-53.0) % Plt Count 141 L (150-450) k/uL Neutrophils # 8.6 H (1.3-7.7) k/uL Lymphocytes # 0.4 L (1.0-4.8) k/uL ABG pO2 (83-108) mmHg ABG Total CO2 (19-24) mmol/L ABG O2 Saturation (94-97) % Chloride (98-107) mmol/L Creatinine (0.66-1.25) mg/dL Glucose (74-99) mg/dL POC Glucose (mg/dL) 142 H 142 H (75-99) mg/dL Calcium (8.4-10.2) mg/dL Magnesium (1.6-2.3) mg/dL Alkaline Phosphatase (38-126) U/L Total Protein (6.3-8.2) g/dL Albumin (3.5-5.0) g/dL Crossmatch 01/01/22 01/01/22 01/02/22 Range/Units 22:53 23:59 01:00 WBC (3.8-10.6) k/uL RBC (4.30-5.90) m/uL Hgb (13.0-17.5) gm/dL Hct (39.0-53.0) % Plt Count (150-450) k/uL Neutrophils # (1.3-7.7) k/uL Lymphocytes # (1.0-4.8) k/uL ABG pO2 (83-108) mmHg ABG Total CO2 (19-24) mmol/L ABG O2 Saturation (94-97) % Chloride (98-107) mmol/L Creatinine (0.66-1.25) mg/dL Glucose (74-99) mg/dL POC Glucose (mg/dL) 126 H 118 H 122 H (75-99) mg/dL Calcium (8.4-10.2) mg/dL Magnesium (1.6-2.3) mg/dL Alkaline Phosphatase (38-126) U/L Total Protein (6.3-8.2) g/dL Albumin (3.5-5.0) g/dL Crossmatch 01/02/22 01/02/22 01/02/22 Range/Units 02:07 03:00 03:58 WBC (3.8-10.6) k/uL RBC (4.30-5.90) m/uL Hgb (13.0-17.5) gm/dL Hct (39.0-53.0) % Plt Count (150-450) k/uL Neutrophils # (1.3-7.7) k/uL Lymphocytes # (1.0-4.8) k/uL ABG pO2 (83-108) mmHg ABG Total CO2 (19-24) mmol/L ABG O2 Saturation (94-97) % Chloride (98-107) mmol/L Creatinine (0.66-1.25) mg/dL Glucose (74-99) mg/dL POC Glucose (mg/dL) 130 H 127 H 117 H (75-99) mg/dL Calcium (8.4-10.2) mg/dL Magnesium (1.6-2.3) mg/dL Alkaline Phosphatase (38-126) U/L Total Protein (6.3-8.2) g/dL Albumin (3.5-5.0) g/dL Crossmatch 01/02/22 01/02/22 01/02/22 Range/Units 04:00 04:00 05:02 WBC (3.8-10.6) k/uL RBC 2.61 L (4.30-5.90) m/uL Hgb 8.4 L (13.0-17.5) gm/dL Hct 24.9 L (39.0-53.0) % Plt Count 139 L (150-450) k/uL Neutrophils # (1.3-7.7) k/uL Lymphocytes # (1.0-4.8) k/uL ABG pO2 (83-108) mmHg ABG Total CO2 (19-24) mmol/L ABG O2 Saturation (94-97) % Chloride 109 H (98-107) mmol/L Creatinine (0.66-1.25) mg/dL Glucose 108 H (74-99) mg/dL POC Glucose (mg/dL) 117 H (75-99) mg/dL Calcium 7.4 L (8.4-10.2) mg/dL Magnesium 2.4 H (1.6-2.3) mg/dL Alkaline Phosphatase 25 L (38-126) U/L Total Protein 5.0 L (6.3-8.2) g/dL Albumin 3.4 L (3.5-5.0) g/dL Crossmatch 01/02/22 01/02/22 01/02/22 Range/Units 06:01 06:54 08:29 WBC (3.8-10.6) k/uL RBC (4.30-5.90) m/uL Hgb (13.0-17.5) gm/dL Hct (39.0-53.0) % Plt Count (150-450) k/uL Neutrophils # (1.3-7.7) k/uL Lymphocytes # (1.0-4.8) k/uL ABG pO2 (83-108) mmHg ABG Total CO2 (19-24) mmol/L ABG O2 Saturation (94-97) % Chloride (98-107) mmol/L Creatinine (0.66-1.25) mg/dL Glucose (74-99) mg/dL POC Glucose (mg/dL) 126 H 125 H 173 H (75-99) mg/dL Calcium (8.4-10.2) mg/dL Magnesium (1.6-2.3) mg/dL Alkaline Phosphatase (38-126) U/L Total Protein (6.3-8.2) g/dL Albumin (3.5-5.0) g/dL Crossmatch 01/02/22 01/02/2222 Range/Units 10:01 11:30 12:53 WBC (3.8-10.6) k/uL RBC (4.30-5.90) m/uL Hgb (13.0-17.5) gm/dL Hct (39.0-53.0) % Plt Count (150-450) k/uL Neutrophils # (1.3-7.7) k/uL Lymphocytes # (1.0-4.8) k/uL ABG pO2 (83-108) mmHg ABG Total CO2 (19-24) mmol/L ABG O2 Saturation (94-97) % Chloride (98-107) mmol/L Creatinine (0.66-1.25) mg/dL Glucose (74-99) mg/dL POC Glucose (mg/dL) 115 H 130 H 164 H (75-99) mg/dL Calcium (8.4-10.2) mg/dL Magnesium (1.6-2.3) mg/dL Alkaline Phosphatase (38-126) U/L Total Protein (6.3-8.2) g/dL Albumin (3.5-5.0) g/dL Crossmatch Assessment and Plan Assessment: 1 symptomatic multivessel coronary artery disease involving left main. The patient underwent four-vessel bypass surgery including DEWEY to LAD and radial artery graft to acute marginal and SVG to diagonal and PDA. The patient is postop day #1 The patient is hemodynamically stable. The patient is on no pressors at this point in time. Adequate cardiac output and index for now. The patient is currently extubated at 2 L nasal cannula and the patient is hemodynamically stable. Extubation pressors were not any major difficulties. Cardizem drip is at 5 mg an hour and this can be weaned off and discontinued. The patient is off the nitroglycerin drip. 2 post thoracotomy. The patient is extubated, comfortable. Chest tubes are in place. Patient is using incentive spirometer. 3 history of hypertension 4 history of hyperlipidemia 5 history of marijuana smoking Plan Discontinue the Cardizem drip Continue aspirin and Plavix Patient was started on metoprolol 12.5 mg twice a day Continue using incentive spirometer Continue drop the FiO2 as tolerated to maintain a saturation above 90%, currently on 2 L nasal cannula Output from the chest tubes are noted and we'll keep the chest tube for another 24 hours Hemodynamically stable We'll continue to follow make further recommendations. Anticipate extubation within next hour or so.
[2022-01-02 14:27] LABS: Glucose,Whole Blood 142 mg/dL (75-99)
[2022-01-02 15:23] LABS: Glucose,Whole Blood 120 mg/dL (75-99)
[2022-01-02 16:20] LABS: Glucose,Whole Blood 112 mg/dL (75-99)
[2022-01-02] MEDS: DILTIAZEM 125 MG in SODIUM CHLORIDE 0.9% 100 ML IV SCH (16:24)
[2022-01-02 18:13] LABS: Glucose,Whole Blood 152 mg/dL (75-99)
[2022-01-02 20:05] LABS: Glucose,Whole Blood 120 mg/dL (75-99)
[2022-01-02] MEDS: SENNOSIDES-DOCUSATE SODIUM 1 EACH TAB PO SCH (20:54)
[2022-01-02] MEDS: MORPHINE SULFATE 2 MG/ML SYRINGE IVP PRN (21:47)
[2022-01-02 22:35] LABS: Glucose,Whole Blood 120 mg/dL (75-99)
[2022-01-03 00:04] LABS: Glucose,Whole Blood 125 mg/dL (75-99)
[2022-01-03 03:09] LABS: Glucose,Whole Blood 125 mg/dL (75-99)
[2022-01-03 03:25] LABS: Basophils % (A) 0 %; Eosinophils % (A) 0 %; HCT 24.8 % (39.0-53.0); HGB 8.2 gm/dL (13.0-17.5); Lymphocytes # (A) 0.9 k/uL (1.0-4.8); Lymphocytes % (A) 9 %; MCH 31.7 pg (25.0-35.0); MCV 96.1 fL (80.0-100.0); Mean Platelet Volume 8.5; Monocytes # (A) 0.4 k/uL (0-1.0); Monocytes % (A) 4 %; Neutrophils # (A) 8.5 k/uL (1.3-7.7); Neutrophils % (A) 85 %; Platelet Count 134 k/uL (150-450); RBC 2.58 m/uL (4.30-5.90); RDW 13.2 % (11.5-15.5)
[2022-01-03 03:34] LABS: Ionized Calcium 4.7 mg/dL (4.5-5.3)
[2022-01-03 03:42] LABS: ALT 15 U/L (4-49); AST 44 U/L (17-59); African American GFR (CKD) >90 (>60 ml/min/1.73 sqM); Albumin 3.2 g/dL (3.5-5.0); Alkaline Phosphatase 34 U/L (38-126); Anion Gap 6 mmol/L; Blood Urea Nitrogen 17 mg/dL (9-20); Calcium 7.7 mg/dL (8.4-10.2); Carbon Dioxide 24 mmol/L (22-30); Chloride 103 mmol/L (98-107); Glucose 117 mg/dL (74-99); Non-African American GFR(CKD) >90 (>60 ml/min/1.73 sqM); Potassium 4.3 mmol/L (3.5-5.1); Sodium 133 mmol/L (137-145); Total Bilirubin 0.8 mg/dL (0.2-1.3); Total Protein 5.1 g/dL (6.3-8.2)
[2022-01-03] MEDS: HYDROcodone/APAP 5-325MG 1 EACH TAB PO PRN ×4 (04:08→16:12)
[2022-01-03 05:16] LABS: Glucose,Whole Blood 128 mg/dL (75-99)
[2022-01-03] MEDS: KETOROLAC 30 MG/ML 1 ML VIAL IVP SCH ×4 (05:37→23:52)
[2022-01-03] MEDS: MORPHINE SULFATE 2 MG/ML SYRINGE IVP PRN ×2 (05:37→11:00)
[2022-01-03 06:47] LABS: Glucose,Whole Blood 135 mg/dL (75-99)
--- NOTE | 2022-01-03 07:38 | XR ---
EXAMINATION TYPE: XR chest 1V portable DATE OF EXAM: 01/03/2022 COMPARISON: 01/02/2022 HISTORY: SOB, Follow Up FINDINGS: Center [place]-Sumi catheter has been removed. Right IJ sheath remains in place as does left-sided chest tube a nd mediastinal drain. No evidence for pneumothorax. Basilar linear atelectasis and small effusion present. Stable appearance of the cardio-mediastinal structures at this time. Pleural effusion unchanged. IMPRESSION: 1. Stable portable chest. Clinical correlation and follow up until resolution is recommended.
[2022-01-03] MEDS: TAMSULOSIN 0.4 MG CAP.ER.24H PO SCH (07:52)
[2022-01-03] MEDS: ATORVASTATIN 40 MG TAB PO SCH (07:52)
[2022-01-03] MEDS: ASPIRIN 325 MG TAB PO SCH (07:52)
[2022-01-03] MEDS: CLOPIDOGREL 75 MG TAB PO SCH (07:52)
[2022-01-03] MEDS: PANTOPRAZOLE 40 MG/10 ML VIAL IVP SCH (07:53)
[2022-01-03] MEDS: HEPARIN SODIUM,PORCINE/PF 5,000 UNIT/0.5 ML SYRINGE SQ SCH ×3 (07:53→23:53)
[2022-01-03 08:00] LABS: Glucose,Whole Blood 152 mg/dL (75-99)
[2022-01-03] MEDS: IPRATROPIUM-ALBUTEROL 3 ML NEB INHALATION SCH ×4 (08:05→19:15)
[2022-01-03] MEDS ORDERED: FUROSEMIDE 10 MG/ML 4 ML VIAL IV STA (08:10)
[2022-01-03] MEDS: METOPROLOL TARTRATE 25 MG TAB PO SCH ×2 (08:56→20:42)
--- NOTE | 2022-01-03 09:54 | P.PN ---
Subjective Progress Note Date: 01/03/22 Principal diagnosis: Multivessel coronary artery disease with left main disease. Past medical history significant for hypertension, hyperlipidemia, chronic ongoing tobacco dependence, and family history of premature coronary artery disease with mother having her first CABG at 56 years old. Remains unvaccinated from covid-19. POD #2 coronary artery bypass grafting 4 vessels with left internal mammary artery to left anterior descending coronary artery, radial artery to the obtuse marginal coronary artery, a reverse greater saphenous vein graft to the diagonal coronary artery and a reverse greater saphenous vein graft to the posterior descending coronary artery. Endoscopic harvesting of the left radial artery. Endoscopic harvesting of the left greater saphenous vein. Ligation of the left atrial appendage using a 35 mm Atriclip. Intraoperative epi-aortic ultrasound and transesophageal echocardiogram. Postoperative acute blood loss anemia, expected given hemodilution and cardiopulmonary bypass. The patient is seen in follow-up today 01/03/2022 at his bedside in the intensive care unit. Currently he is sitting up to the bedside chair, is awake, alert, oriented 3 and is in no acute apparent distress. Denies any complaints of shortness of breath at this time, although continues complaining of some surgical type pain to his chest tube insertion sites. Currently rating his pain 3-4 out of 10 on the pain scale. Oxygen saturations are 95% on 10 L high flow nasal cannula and he is achieving 1000 ml on his incentive spirometry with encouragement. His T-max temperature throughout the last 24 hours was 99.4F. He has been encouraged to use his incentive spirometry 10 times every hour while awake. Bedside telemetry showing normal sinus rhythm heart rate 83 BPM. Atrial and ventricular epicardial pacemaker wires in place and connected to back up to bedside pacemaker generator on a VVI 60. Mediastinal and left pleural chest tubes remain in place to low continuous wall suction -20 cm H2O. No air leak is present. Draining thin sternal sinus drainage with 190 mL output in the last 8 hours and 600 mL output in the last 24 hours. The patient reports he has been up ambulating in the intensive care unit with minimal assistance from nursing and physical therapy staff. Objective - Vital Signs Vital signs: Vital Signs Temp 98.3 F 01/03/22 08:00 Pulse 84 01/03/22 09:00 Resp 24 01/03/22 09:00 BP 130/69 01/03/22 09:00 Pulse Ox 96 01/03/22 09:00 Intake & Output 01/02/22 01/03/22 01/03/22 18:59 06:59 18:59 Intake Total 954.885 395.561 52 Output Total 635 1070 150 Balance 319.885 -674.439 -98 Weight 82.4 kg 84.2 kg Intake: IV 160 328 52 CO/CI 30 Cardizem gtt 55 10 Lactated Ringers 1,000 ml 240 40 @ 20 mls/hr IV .Q24H YANICK Rx#:[id number] Nitro gtt 0 Pressure Bag 75 78 12 Intake, IV Titration 294.885 67.561 Amount Diltiazem 125 mg In 125 15.5 Sodium Chloride 0.9% 100 ml @ 5 MG/HR 5 mls/hr IV .Q24H YANICK Rx#:[id number] Insulin Regular 100 unit 17.541 12.061 In Sodium Chloride 0.9% 100 ml @ Per Protocol IV .Q0M YANICK Rx#:[id number] Lactated Ringers 1,000 ml 80 40 @ 20 mls/hr IV .Q24H YANICK Rx#:[id number] Nitroglycerin-D5w Pmx 50 25.075 mg In Dextrose/Water 1 250ml.bag @ 5 MCG/MIN 1.5 mls/hr IV .Q24H YANICK Rx#: [id number] Norepinephrine 4 mg In 47.269 Sodium Chloride 0.9% 250 ml @ 0.025 MCG/KG/MIN 7. 563 mls/hr IV .Q24H YANICK Rx#:[id number] Oral 500 Output: Chest Tube Drainage 320 230 60 MS/LP 320 230 60 Drainage 20 Left Arm 20 Urine 315 820 90 Other: Voiding Method Indwelling Catheter Indwelling Catheter ABP, PAP, CO, CI - Last Documented Arterial Blood Pressure 129/49 Pulmonary Artery Pressure 34/18 Cardiac Output 6.8 Cardiac Index 3.4 - Exam CONSTITUTIONAL: Sitting up to the bedside chair in the intensive care unit, appears comfortable, cooperative, no apparent acute distress. HEENT: Neck is supple, no JVD, no lymphadenopathy. Right IJ Cordis in place and functioning. RESPIRATORY: Lungs sounds essentially clear throughout, diminished to his bilateral bases. Respirations are symmetrical and nonlabored. Currently on 10 L high flow nasal cannula with oxygen saturations 95%. Able to achieve 1000 mL on his incentive spirometry. Strong cough. CARDIOVASCULAR: Regular rhythm and rate. S1 and S2 present, negative for S3, gallop or murmur. Sternum is stable. Palpable peripheral pulses bilaterally. No calf pain or tenderness noted. Heart hugger in place with patient demonstrating appropriate use. Knee-high PAWEL hose and sequential compression devices in place to his bilateral lower extremities. GASTROINTESTINAL: Abdomen soft, nontender, nondistended. Active bowel sounds present 4 quadrants. Tolerating diet. Passing flatus. No guarding or rigidity. GENITOURINARY: Jamison present draining clear, yellow urine. Output 600 mL in the last 8 hours INTEGUMENTARY: Skin is warm and dry with no evidence of clubbing or cyanosis. Midline sternal incision clean dry and well approximated, covered with dry intact dressing. Left lower extremity EVH sites well approximated without redness or drainage. Left arm radial artery harvest sites clean, dry and appr oximated. No drainage or redness is present. NEUROLOGIC: Cranial nerves II through XII intact. No focal deficits. MUSKULOSKELETAL: Able to move all extremities, strength equal bilaterally. PSYCHIATRIC: Alert and oriented to person place and time, appropriate affect, intact judgment and insight. INVASIVE LINES AND TUBES: Mediastinal/left pleural chest tubes present and connected to low continuous wall suction, no air leaks present. Mediastinal/left pleural chest tubes with 190 mL of thin serosanguineous drainage in the last 8 hours, 600 mL output in the last 24 hours. Atrial and ventricular epicardial pacemaker wires present, connected to generator, VVI backup rate 60 bpm. Right internal jugular Cordis, right radial arterial line present. Last CVP 10 mmHg. - Allied health notes Allied health notes reviewed: nursing - Labs CBC & Chem 7: 01/03/22 03:06 01/03/22 03:06 Labs: Abnormal Lab Results - Last 24 Hours (Table) 01/02/22 01/02/22 01/02/22 Range/Units 10:01 11:30 12:53 RBC (4.30-5.90) m/uL Hgb (13.0-17.5) gm/dL Hct (39.0-53.0) % Plt Count (150-450) k/uL Neutrophils # (1.3-7.7) k/uL Lymphocytes # (1.0-4.8) k/uL Sodium (137-145) mmol/L Glucose (74-99) mg/dL POC Glucose (mg/dL) 115 H 130 H 164 H (75-99) mg/dL Calcium (8.4-10.2) mg/dL Alkaline Phosphatase (38-126) U/L Total Protein (6.3-8.2) g/dL Albumin (3.5-5.0) g/dL 01/02/22 01/02/22 01/02/22 Range/Units 14:25 15:21 16:19 RBC (4.30-5.90) m/uL Hgb (13.0-17.5) gm/dL Hct (39.0-53.0) % Plt Count (150-450) k/uL Neutrophils # (1.3-7.7) k/uL Lymphocytes # (1.0-4.8) k/uL Sodium (137-145) mmol/L Glucose (74-99) mg/dL POC Glucose (mg/dL) 142 H 120 H 112 H (75-99) mg/dL Calcium (8.4-10.2) mg/dL Alkaline Phosphatase (38-126) U/L Total Protein (6.3-8.2) g/dL Albumin (3.5-5.0) g/dL 01/02/22 01/02/22 01/02/22 Range/Units 18:11 20:04 22:33 RBC (4.30-5.90) m/uL Hgb (13.0-17.5) gm/dL Hct (39.0-53.0) % Plt Count (150-450) k/uL Neutrophils # (1.3-7.7) k/uL Lymphocytes # (1.0-4.8) k/uL Sodium (137-145) mmol/L Glucose (74-99) mg/dL POC Glucose (mg/dL) 152 H 120 H 120 H (75-99) mg/dL Calcium (8.4-10.2) mg/dL Alkaline Phosphatase (38-126) U/L Total Protein (6.3-8.2) g/dL Albumin (3.5-5.0) g/dL 01/03/22 01/03/22 01/03/22 Range/Units 00:02 03:06 03:06 RBC 2.58 L (4.30-5.90) m/uL Hgb 8.2 L (13.0-17.5) gm/dL Hct 24.8 L (39.0-53.0) % Plt Count 134 L (150-450) k/uL Neutrophils # 8.5 H (1.3-7.7) k/uL Lymphocytes # 0.9 L (1.0-4.8) k/uL Sodium 133 L (137-145) mmol/L Glucose 117 H (74-99) mg/dL POC Glucose (mg/dL) 125 H (75-99) mg/dL Calcium 7.7 L (8.4-10.2) mg/dL Alkaline Phosphatase 34 L (38-126) U/L Total Protein 5.1 L (6.3-8.2) g/dL Albumin 3.2 L (3.5-5.0) g/dL 01/03/22 01/03/22 01/03/22 Range/Units 03:07 05:15 06:45 RBC (4.30-5.90) m/uL Hgb (13.0-17.5) gm/dL Hct (39.0-53.0) % Plt Count (150-450) k/uL Neutrophils # (1.3-7.7) k/uL Lymphocytes # (1.0-4.8) k/uL Sodium (137-145) mmol/L Glucose (74-99) mg/dL POC Glucose (mg/dL) 125 H 128 H 135 H (75-99) mg/dL Calcium (8.4-10.2) mg/dL Alkaline Phosphatase (38-126) U/L Total Protein (6.3-8.2) g/dL Albumin (3.5-5.0) g/dL 01/03/22 Range/Units 07:58 RBC (4.30-5.90) m/uL Hgb (13.0-17.5) gm/dL Hct (39.0-53.0) % Plt Count (150-450) k/uL Neutrophils # (1.3-7.7) k/uL Lymphocytes # (1.0-4.8) k/uL Sodium (137-145) mmol/L Glucose (74-99) mg/dL POC Glucose (mg/dL) 152 H (75-99) mg/dL Calcium (8.4-10.2) mg/dL Alkaline Phosphatase (38-126) U/L Total Protein (6.3-8.2) g/dL Albumin (3.5-5.0) g/dL - Imaging and Cardiology Chest x-ray: report reviewed, image reviewed Assessment and Plan Assessment: 1. Triple-vessel coronary artery disease with left main disease, unstable angina, status post four-vessel coronary artery bypass grafting surgery 2. History of hypertension 3. History of hyperlipidemia, treated 4. Chronic ongoing tobacco dependence 5. Family history of premature coronary artery disease with mother having her first CABG at 56 years old 6. Remains unvaccinated from covid-19 7. Postoperative acute blood loss anemia, expected given hemodilution and cardiopulmonary bypass Plan: 1. Continue aspirin, statin, Plavix, and beta nely. Will increase metoprolol tartrate to 25 mg by mouth twice a day. Hold parameters on beta blockers. 2. Lasix 40 mg IV 1 now. 3. Wean O2 as tolerated. Encourage incentive spirometry 10 times every hour while awake. Bronchodilators per pulmonology. 4. Increase activity, ambulate as tolerated. PT/OT/cardiac rehab following. 5. Will monitor daily labs and chest x-rays. Electrolyte replacement per johanne col 6. GI/DVT prophylaxis. 7. Pain control with current medication regimen. 8. Discontinue [place]. Connect Cordis to continuous CVP monitoring. 9. Ground and epicardial pacemaker wires. 10. Mediastinal chest tube removed without incident. Keep left pleural chest tube in place to low continuous wall suction -20 cm H2O for another 24 hours. 11. Remove Jamison catheter. Continue to record strict and accurate I's and O's. Continue daily weights. Me bladder scan every 6 hours and when necessary and straight cath for greater than 300 mL of postvoid residual. Flomax 0.4 mg by mouth daily started. 12. Smoking cessation counseling discussion with patient and reinforced with patient. Encourage complete smoking cessation. 13. Insulin management per internal medicine service. Patient is not diabetic, preoperative hemoglobin A1c 5.9%, however he does need tight blood sugar control to promote sternal union and prevent infection. 14. Transfer orders placed to third floor cardiac stepdown unit. 15. More recommendations to follow based on patient's clinical course. Time with Patient: Greater than 30
[2022-01-03 11:56] LABS: Glucose,Whole Blood 115 mg/dL (75-99)
[2022-01-03] MEDS: amLODIPine 2.5 MG TAB PO SCH (12:02)
[2022-01-03] MEDS: INSULIN ASPART (NovoLOG) 100 UNIT/ML VIAL SQ SCH ×3 (12:03→20:43)
--- NOTE | 2022-01-03 12:05 | P.PN ---
Subjective Progress Note Date: 01/03/22 Pt has increased oxygen requirement. Had swan zoey, 2 chest tubes removed, A- line removed. Given IV lasix today. C/o pain at site of chest tube, but tolerable. Objective - Vital Signs Vital signs: Vital Signs Temp 98.3 F 01/03/22 08:00 Pulse 78 01/03/22 11:00 Resp 26 H 01/03/22 11:00 BP 113/80 01/03/22 11:00 Pulse Ox 95 01/03/22 11:00 Intake & Output 01/02/22 01/03/22 01/03/22 18:59 06:59 18:59 Intake Total 954.885 395.561 202 Output Total 635 1070 800 Balance 319.885 -674.439 -598 Weight 82.4 kg 84.2 kg Intake: IV 160 328 52 CO/CI 30 Cardizem gtt 55 10 Lactated Ringers 1,000 ml 240 40 @ 20 mls/hr IV .Q24H YANICK Rx#:[id number] Nitro gtt 0 Pressure Bag 75 78 12 Intake, IV Titration 294.885 67.561 Amount Diltiazem 125 mg In 125 15.5 Sodium Chloride 0.9% 100 ml @ 5 MG/HR 5 mls/hr IV .Q24H YANICK Rx#:[id number] Insulin Regular 100 unit 17.541 12.061 In Sodium Chloride 0.9% 100 ml @ Per Protocol IV .Q0M YANICK Rx#:[id number] Lactated Ringers 1,000 ml 80 40 @ 20 mls/hr IV .Q24H YANICK Rx#:[id number] Nitroglycerin-D5w Pmx 50 25.075 mg In Dextrose/Water 1 250ml.bag @ 5 MCG/MIN 1.5 mls/hr IV .Q24H YANICK Rx#: [id number] Norepinephrine 4 mg In 47.269 Sodium Chloride 0.9% 250 ml @ 0.025 MCG/KG/MIN 7. 563 mls/hr IV .Q24H YANICK Rx#:[id number] Oral 500 150 Output: Chest Tube Drainage 320 230 60 MS/LP 320 230 60 Pleural Catheter Left 0 Drainage 20 Left Arm 20 Urine 315 820 740 Other: Voiding Method Indwelling Catheter Indwelling Catheter ABP, PAP, CO, CI - Last Documented Arterial Blood Pressure 129/49 Pulmonary Artery Pressure 34/18 Cardiac Output 7 Cardiac Index 3.5 - Exam Gen: awake, alert HEENT: normocephalic, atraumatic, good hearing acuity, moist mucous membranes Resp: good air exchange, no accessory muscle use CVS: good distal perfusion x 4, regular rate and rhythm without murmurs GI: soft, NTTP, ND : no SPT, no CVAT, baker catheter is present MSK: no pitting edema, no clubbing - Labs CBC & Chem 7: 01/03/22 03:06 01/03/22 03:06 Labs: Abnormal Lab Results - Last 24 Hours (Table) 01/02/22 01/02/22 01/02/22 Range/Units 12:53 14:25 15:21 RBC (4.30-5.90) m/uL Hgb (13.0-17.5) gm/dL Hct (39.0-53.0) % Plt Count (150-450) k/uL Neutrophils # (1.3-7.7) k/uL Lymphocytes # (1.0-4.8) k/uL Sodium (137-145) mmol/L Glucose (74-99) mg/dL POC Glucose (mg/dL) 164 H 142 H 120 H (75-99) mg/dL Calcium (8.4-10.2) mg/dL Alkaline Phosphatase (38-126) U/L Total Protein (6.3-8.2) g/dL Albumin (3.5-5.0) g/dL 01/02/22 01/02/22 01/02/22 Range/Units 16:19 18:11 20:04 RBC (4.30-5.90) m/uL Hgb (13.0-17.5) gm/dL Hct (39.0-53.0) % Plt Count (150-450) k/uL Neutrophils # (1.3-7.7) k/uL Lymphocytes # (1.0-4.8) k/uL Sodium (137-145) mmol/L Glucose (74-99) mg/dL POC Glucose (mg/dL) 112 H 152 H 120 H (75-99) mg/dL Calcium (8.4-10.2) mg/dL Alkaline Phosphatase (38-126) U/L Total Protein (6.3-8.2) g/dL Albumin (3.5-5.0) g/dL 01/02/22 01/03/22 01/03/22 Range/Units 22:33 00:02 03:06 RBC 2.58 L (4.30-5.90) m/uL Hgb 8.2 L (13.0-17.5) gm/dL Hct 24.8 L (39.0-53.0) % Plt Count 134 L (150-450) k/uL Neutrophils # 8.5 H (1.3-7.7) k/uL Lymphocytes # 0.9 L (1.0-4.8) k/uL Sodium (137-145) mmol/L Glucose (74-99) mg/dL POC Glucose (mg/dL) 120 H 125 H (75-99) mg/dL Calcium (8.4-10.2) mg/dL Alkaline Phosphatase (38-126) U/L Total Protein (6.3-8.2) g/dL Albumin (3.5-5.0) g/dL 01/03/22 01/03/22 01/03/22 Range/Units 03:06 03:07 05:15 RBC (4.30-5.90) m/uL Hgb (13.0-17.5) gm/dL Hct (39.0-53.0) % Plt Count (150-450) k/uL Neutrophils # (1.3-7.7) k/uL Lymphocytes # (1.0-4.8) k/uL Sodium 133 L (137-145) mmol/L Glucose 117 H (74-99) mg/dL POC Glucose (mg/dL) 125 H 128 H (75-99) mg/dL Calcium 7.7 L (8.4-10.2) mg/dL Alkaline Phosphatase 34 L (38-126) U/L Total Protein 5.1 L (6.3-8.2) g/dL Albumin 3.2 L (3.5-5.0) g/dL 01/03/22 01/03/22 01/03/22 Range/Units 06:45 07:58 11:44 RBC (4.30-5.90) m/uL Hgb (13.0-17.5) gm/dL Hct (39.0-53.0) % Plt Count (150-450) k/uL Neutrophils # (1.3-7.7) k/uL Lymphocytes # (1.0-4.8) k/uL Sodium (137-145) mmol/L Glucose (74-99) mg/dL POC Glucose (mg/dL) 135 H 152 H 115 H (75-99) mg/dL Calcium (8.4-10.2) mg/dL Alkaline Phosphatase (38-126) U/L Total Protein (6.3-8.2) g/dL Albumin (3.5-5.0) g/dL Assessment and Plan Assessment: Unstable angina -Admit to inpatient, telemetry -Cardiology consulted -Pulmonary consulted -CT surgery consulted -Continue aspirin, statin -Continue beta nely, Imdur -Nitro gtt, stopped -cardizem gtt at 5mg/hr -insulin gtt for 48 hours, now can transition to AC-SSI Hypertension Hyperlipidemia Nicotine use Marijuana abuse -Home medications reviewed and reconciled -Amlodipine was resumed -Cessation counseling advised Patient is full code
--- NOTE | 2022-01-03 12:49 | P.PN ---
Subjective Progress Note Date: 01/03/22 01/01/2022, THE PATIENT IS POSTOP DAY #0. I SAW THE PATIENT IMMEDIATELY AFTER HE ARRIVED FROM THE OPERATING ROOM. HE UNDERWENT DEWEY TO LAD RADIAL TO ACUTE MARGINAL AND SAPHENOUS VEIN GRAFT TO DIAGONAL AND PDA. PATIENT IS CURRENTLY ON PROPOFOL, he is well sedated and calm and comfortable. He is on a mechanical ventilator. He is an assist-control mode at a rate of 12, tidal volume of 500, FiO2 of 50% with a PEEP of 5. FiO2 was dropped from 100% on to 50% as the patient's blood gases showed a pH of 7.36 with a pCO2 of 44 and a pO2 of 365. The patient a cardiac output of 4.8 with an index of 2.4 with a pulmonary artery pressures of 19/10. The patient is on fire Cardizem drip at 5 mg an hour and Atrovent nitroglycerin drip at 5 mg/m and the patient is also on lactated Ringer at the rate of 50 mL an hour. The patient has a mediastinal and the left pleural chest tube. Output has been in the order of 70 mL since his arrival from the operating room. The patient is in sinus rhythm. Urine output is adequate for now. Height is afebrile. No other significant events otherwise for now. The blood work shows a white cell count of 14.2 with a hemoglobin of 10.6 and a platelet count of 147. Creatinine is at 0.6. 01/02/2022, the patient is postop day #1. Patient remains extubated. This morning, the patient is sitting up on a chair and the patient is calm and comfortable without any major respiratory difficulties. He remains on oxygen at 2 L per minute nasal cannula. The patient was extubated without any major difficulties at around 4:45 PM in the afternoon yesterday. This morning, he remains extubated and he is currently on 2 L O2 nasal cannula. The patient's cardiac output is at 7 with an index of 3.5, pulmonary artery pressures are 32/17 with a CVP of 15. The left and the mediastinal chest tubes are attached total amount of output has been 6 on 60 mL over the past 12 hours. The patient remains on Cardizem and family grams an hour. Nitroglycerin drip has been d iscontinued. Remains on normal saline. He is using incentive spirometer pulling approximately 7 50 mL. The patient is awake and alert and there is no focal neurological deficit at this point in time. Cardiac rhythm remains sinus. The patient has a white cell count of 8.6 with a hemoglobin of 8.4. TPN is at 70 with a creatinine of 0.7 sodium level is at 139. Calcium level is at 7.4, LFTs are within normal limits. 01/03/2022, I am seeing this patient for a follow-up. The patient is doing extremely well. The patient remains extubated and the patient is postop day #2 following his cardiac surgery. On today's evaluation, he is on 10 L and I was able to wean down to 6 L about 2 by nasal cannula. He'll be receiving a dose of Lasix 40 mg IV 1. The patient is otherwise doing well. No issues with pain. The mediastinal and the left pleural chest tubes are in place and total amount o f output from both of the tubes have been 190 mL over the past 8 hours and 600 mL over the past 24 hours. Hemoglobin is at 8.2 which is stable and the chest x-ray showing no evidence of any pneumothorax and there is adequate expansion of both lungs bilaterally. Cardiac rhythm is sinus. The patient's white cell count is at 10 with a hemoglobin of 8.2. The BUN is at 17 with a creatinine of 0.7 and the sodium level of 133. No other significant events otherwise for now. Objective - Vital Signs Vital signs: Vital Signs Temp 98.2 F 01/03/22 12:00 Pulse 87 01/03/22 12:00 Resp 32 H 01/03/22 12:00 BP 117/70 01/03/22 12:00 Pulse Ox 93 L 01/03/22 12:00 Intake & Output 01/02/22 01/03/22 01/03/22 18:59 06:59 18:59 Intake Total 954.885 395.561 402 Output Total 635 1070 800 Balance 319.885 -674.439 -398 Weight 82.4 kg 84.2 kg Intake: IV 160 328 52 CO/CI 30 Cardizem gtt 55 10 Lactated Ringers 1,000 ml 240 40 @ 20 mls/hr IV .Q24H [facility] Rx#:[id number] Nitro gtt 0 Pressure Bag 75 78 12 Intake, IV Titration 294.885 67.561 Amount Diltiazem 125 mg In 125 15.5 Sodium Chloride 0.9% 100 ml @ 5 MG/HR 5 mls/hr IV .Q24H [facility] Rx#:[id number] Insulin Regular 100 unit 17.541 12.061 In Sodium Chloride 0.9% 100 ml @ Per Protocol IV .Q0M [facility] Rx#:[id number] Lactated Ringers 1,000 ml 80 40 @ 20 mls/hr IV .Q24H [facility] Rx#:[id number] Nitroglycerin-D5w Pmx 50 25.075 mg In Dextrose/Water 1 250ml.bag @ 5 MCG/MIN 1.5 mls/hr IV .Q24H [facility] Rx#: [id number] Norepinephrine 4 mg In 47.269 Sodium Chloride 0.9% 250 ml @ 0.025 MCG/KG/MIN 7. 563 mls/hr IV .Q24H [facility] Rx#:[id number] Oral 500 350 Output: Chest Tube Drainage 320 230 60 MS/LP 320 230 60 Pleural Catheter Left 0 Drainage 20 Left Arm 20 Urine 315 820 740 Other: Voiding Method Indwelling Catheter Indwelling Catheter Urinal ABP, PAP, CO, CI - Last Documented Arterial Blood Pressure 129/49 Pulmonary Artery Pressure 34/18 Cardiac Output 7 Cardiac Index 3.5 - Exam The patient is currently extubated at currently on 6 L of O2 by nasal cannula Head exam was generally normal. There was no scleral icterus or corneal arcus. Mucous membranes were moist. Neck was supple and without jugular venous distension, thyromegaly, or carotid bruits. Carotids were easily palpable bilaterally. There was no adenopathy. The patient has a right IJ Cordis and Bryant-Sumi catheter was removed Cardiac exam revealed the PMI to be normally situated and sized. The rhythm was regular and no extrasystoles were noted during several minutes of auscultation. The first and second heart sounds were normal and physiologic splitting of the s econd heart sound was noted. There were no murmurs, rubs, clicks, or gallops. Sternum stable clean and intact and the patient has epi cardial wires. Lungs were clear to auscultation and percussion, and with normal diaphragmatic excursion. No wheezes or rales were noted. The patient has a mediastinal and left pleural chest tube. Abdominal exam revealed normal bowel sounds. The abdomen was soft, non-tender, and without masses, organomegaly, or appreciable enlargement of the abdominal aorta. Examination of the extremities revealed easily palpable radial, femoral and pedal pulses. There was no cyanosis, clubbing or edema. Examination of the skin revealed no evidence of significant rashes, suspicious appearing nevi or other concerning lesions. Neurologically the patient is awake and alert and following commands and answering questions appropriately - Labs CBC & Chem 7: 01/03/22 03:06 01/03/22 03:06 Labs: Abnormal Lab Results - Last 24 Hours (Table) 01/02/22 01/02/22 01/02/22 Range/Units 12:53 14:25 15:21 RBC (4.30-5.90) m/uL Hgb (13.0-17.5) gm/dL Hct (39.0-53.0) % Plt Count (150-450) k/uL Neutrophils # (1.3-7.7) k/uL Lymphocytes # (1.0-4.8) k/uL Sodium (137-145) mmol/L Glucose (74-99) mg/dL POC Glucose (mg/dL) 164 H 142 H 120 H (75-99) mg/dL Calcium (8.4-10.2) mg/dL Alkaline Phosphatase (38-126) U/L Total Protein (6.3-8.2) g/dL Albumin (3.5-5.0) g/dL 01/02/22 01/02/22 01/02/22 Range/Units 16:19 18:11 20:04 RBC (4.30-5.90) m/uL Hgb (13.0-17.5) gm/dL Hct (39.0-53.0) % Plt Count (150-450) k/uL Neutrophils # (1.3-7.7) k/uL Lymphocytes # (1.0-4.8) k/uL Sodium (137-145) mmol/L Glucose (74-99) mg/dL POC Glucose (mg/dL) 112 H 152 H 120 H (75-99) mg/dL Calcium (8.4-10.2) mg/dL Alkaline Phosphatase (38-126) U/L Total Protein (6.3-8.2) g/dL Albumin (3.5-5.0) g/dL 01/02/22 01/03/22 01/03/22 Range/Units 22:33 00:02 03:06 RBC 2.58 L (4.30-5.90) m/uL Hgb 8.2 L (13.0-17.5) gm/dL Hct 24.8 L (39.0-53.0) % Plt Count 134 L (150-450) k/uL Neutrophils # 8.5 H (1.3-7.7) k/uL Lymphocytes # 0.9 L (1.0-4.8) k/uL Sodium (137-145) mmol/L Glucose (74-99) mg/dL POC Glucose (mg/dL) 120 H 125 H (75-99) mg/dL Calcium (8.4-10.2) mg/dL Alkaline Phosphatase (38-126) U/L Total Protein (6.3-8.2) g/dL Albumin (3.5-5.0) g/dL 01/03/22 01/03/22 01/03/22 Range/Units 03:06 03:07 05:15 RBC (4.30-5.90) m/uL Hgb (13.0-17.5) gm/dL Hct (39.0-53.0) % Plt Count (150-450) k/uL Neutrophils # (1.3-7.7) k/uL Lymphocytes # (1.0-4.8) k/uL Sodium 133 L (137-145) mmol/L Glucose 117 H (74-99) mg/dL POC Glucose (mg/dL) 125 H 128 H (75-99) mg/dL Calcium 7.7 L (8.4-10.2) mg/dL Alkaline Phosphatase 34 L (38-126) U/L Total Protein 5.1 L (6.3-8.2) g/dL Albumin 3.2 L (3.5-5.0) g/dL 01/03/22 01/03/22 01/03/22 Range/Units 06:45 07:58 11:44 RBC (4.30-5.90) m/uL Hgb (13.0-17.5) gm/dL Hct (39.0-53.0) % Plt Count (150-450) k/uL Neutrophils # (1.3-7.7) k/uL Lymphocytes # (1.0-4.8) k/uL Sodium (137-145) mmol/L Glucose (74-99) mg/dL POC Glucose (mg/dL) 135 H 152 H 115 H (75-99) mg/dL Calcium (8.4-10.2) mg/dL Alkaline Phosphatase (38-126) U/L Total Protein (6.3-8.2) g/dL Albumin (3.5-5.0) g/dL Assessment and Plan Assessment: 1 symptomatic multivessel coronary artery disease involving left main. The patient underwent four-vessel bypass surgery including DEWEY to LAD and radial artery graft to acute marginal and SVG to diagonal and PDA. The patient is postop day #2 The patient is hemodynamically stable. The patient is on no pressors at this point in time. Adequate cardiac output and index for now. The patient is currently extubated at 6 L nasal cannula and the patient is hemodynamically stable. 2 post thoracotomy. The patient is extubated, comfortable. Chest tubes are in place. Patient is using incentive spirometer. The chest tubes are still in place and output has been noted. 3 history of hypertension 4 history of hyperlipidemia 5 history of marijuana smoking Plan Remove the mediastinal chest tube and keep the left pleural chest tube in place Continue using incentive spirometer Remove the cordis Continue aspirin and Plavix Patient was started on metoprolol increased her dose up to 25 mg by mouth twice a day Continue using incentive spirometer Continue drop the FiO2 as tolerated to maintain a saturation above 90%, currently on 6 L nasal cannula Output from the chest tubes are noted and we'll keep the chest tube for another 24 hours Hemodynamically stable We'll continue to follow make further recommendations. Anticipate extubation within next hour or so.
[2022-01-03 17:35] LABS: Glucose,Whole Blood 156 mg/dL (75-99)
[2022-01-03 20:32] LABS: Glucose,Whole Blood 155 mg/dL (75-99)
[2022-01-03] MEDS: MELATONIN 3 MG TABLET PO SCH (20:42)
[2022-01-03] MEDS: SENNOSIDES-DOCUSATE SODIUM 1 EACH TAB PO SCH (20:43)
[2022-01-04] MEDS: HYDROcodone/APAP 5-325MG 1 EACH TAB PO PRN ×3 (02:47→19:53)
[2022-01-04 05:27] LABS: Glucose,Whole Blood 146 mg/dL (75-99)
[2022-01-04] MEDS: KETOROLAC 30 MG/ML 1 ML VIAL IVP SCH ×2 (06:35→11:56)
[2022-01-04] MEDS: PANTOPRAZOLE 40 MG TABLET PO SCH (06:36)
[2022-01-04] MEDS: INSULIN ASPART (NovoLOG) 100 UNIT/ML VIAL SQ SCH ×4 (06:36→20:57)
[2022-01-04] MEDS ORDERED: LIDOCAINE 2% SYG (PF) 100 MG/5 ML ONE (07:41)
[2022-01-04] MEDS ORDERED: HEPARIN SODIUM,PORCINE 10,000 UNIT/ML 1 ML VIAL ONE (07:41)
[2022-01-04] MEDS ORDERED: TRANEXAMIC ACID IN NACL,ISO-OS 1,000 MG/100 ML BAG ONE (07:41)
[2022-01-04] MEDS ORDERED: NITROGLYCERIN-D5W PMX 50 MG/250 ML BOTTLE IV ONE (07:41)
[2022-01-04] MEDS ORDERED: VECURONIUM 10 MG VIAL IV ONE (07:41)
[2022-01-04] MEDS ORDERED: PROPOFOL 10 MG/ML 20 ML VIAL IV ONE (07:41)
[2022-01-04] MEDS ORDERED: MIDAZOLAM HCL 10 MG/10 ML VIAL ONE (07:41)
[2022-01-04] MEDS ORDERED: fentaNYL (PF) 50 MCG/ML 50 ML VIAL ONE (07:41)
[2022-01-04] MEDS ORDERED: ePHEDrine 50 MG/ML 1 ML VIAL ONE (07:41)
[2022-01-04] MEDS ORDERED: MAGNESIUM SULFATE 4 MEQ/ML 10ML VIAL ONE (07:41)
[2022-01-04 07:42] LABS: HCT 22.4 % (39.0-53.0); HGB 7.6 gm/dL (13.0-17.5); MCH 32.5 pg (25.0-35.0); MCHC 33.9 g/dL (31.0-37.0); MCV 95.9 fL (80.0-100.0); Mean Platelet Volume 7.6; Platelet Count 142 k/uL (150-450); RBC 2.34 m/uL (4.30-5.90); RDW 12.4 % (11.5-15.5)
--- NOTE | 2022-01-04 07:49 | P.PN ---
Subjective Progress Note Date: 01/04/22 Principal diagnosis: Triple-vessel coronary artery disease with left main disease, unstable angina. Previous medical history of hypertension, hyperlipidemia, current tobacco depen dence, and family history of premature coronary artery disease with mother having her first CABG at 56 years old. Remains unvaccinated from covid POD #3 coronary artery bypass grafting 4 vessels with left internal mammary artery to the left anterior descending artery, radial artery to the obtuse marginal artery, reverse saphenous vein graft to the diagonal artery, reverse saphenous vein graft to the posterior descending artery, endoscopic harvesting of the left radial artery, endoscopic harvesting of the greater left greater saphenous vein, ligation of the left atrial appendage using a 35 mm AtriClip, epi-aortic ultrasound, intraoperative transesophageal echocardiogram performed by anesthesia Postoperative acute blood loss anemia and thrombocytopenia, expected given hemodilution and cardiopulmonary bypass pump The patient was seen and examined this morning sitting up in a recliner on the cardiac stepdown unit in no acute distress. Does complain of postsurgical chest pain, denies shortness of breath. He has been ambulatory short distances with assistance. Remains in sinus rhythm, hemodynamically stable. Continues to utilize incentive spirometry. Left pleural chest tube, epicardial pacemaker wires remain present. No new concerns. Objective - Vital Signs Vital signs: Vital Signs Temp 98.5 F 01/04/22 04:00 Pulse 80 01/04/22 04:00 Resp 18 01/04/22 04:00 BP 99/59 01/04/22 04:00 Pulse Ox 96 01/04/22 04:00 Intake & Output 01/03/22 01/04/22 01/04/22 18:59 06:59 18:59 Intake Total 802 Output Total 1570 630 Balance -768 -630 Weight 85.8 kg Intake: IV 52 Lactated Ringers 1,000 ml 40 @ 20 mls/hr IV .Q24H [facility] Rx#:[id number] Pressure Bag 12 Oral 750 Output: Chest Tube Drainage 130 30 MS/LP 60 Pleural Catheter Left 70 30 Urine 1440 600 Other: Voiding Method Urinal Urinal ABP, PAP, CO, CI - Last Documented Arterial Blood Pressure 129/49 Pulmonary Artery Pressure 34/18 Cardiac Output 7 Cardiac Index 3.5 - Exam CONSTITUTIONAL: Appears comfortable, cooperative, no acute distress RESPIRATORY: Lungs sounds diminished bilaterally. Respirations even, nonlabored. Currently on 4 L nasal cannula with oxygen saturation 96%. Able to achieve 1000 mL on incentive spirometry. Strong cough. CARDIOVASCULAR: S1, S2 present. Regular rate and rhythm, sinus rhythm on telemetry. Sternum stable. Palpable peripheral pulses bilaterally. Trace generalized edema present. No calf pain or tenderness noted. Heart hugger in place with patient demonstrating appropriate use. Antiembolism stockings, SCDs present. GASTROINTESTINAL: Abdomen soft, nontender, nondistended. Active bowel sounds present 4 quadrants. Tolerating diet. Positive flatus, negative bowel movement GENITOURINARY: Continues to void, 2040 mL in the last 24 hours INTEGUMENTARY: Skin is warm and dry with evidence of good perfusion. Anterior chest incision well approximated and covered with dry intact dressing. Left lower extremity EVH site as well as left radial artery harvest site well approximated without redness or drainage. NEUROLOGIC: Cranial nerves II through XII intact MUSKULOSKELETAL: Able to move all extremities, strength equal bilaterally, gait normal PSYCHIATRIC: Alert and oriented to person place and time, appropriate affect, intact judgment and insight INVASIVE LINES AND TUBES: Left pleural chest tubes present and connected to wall suction, no air leaks present, 30 mL serosanguineous drainage overnight, 140 mL in the last 24 hours. A/V epicardial pacemaker wires present, grounded - Allied health notes Allied health notes reviewed: nursing - Labs CBC & Chem 7: 01/04/22 07:03 01/03/22 03:06 Labs: Abnormal Lab Results - Last 24 Hours (Table) 01/03/22 01/03/22 01/03/22 Range/Units 07:58 11:44 17:33 POC Glucose (mg/dL) 152 H 115 H 156 H (75-99) mg/dL 01/03/22 01/04/22 Range/Units 20:30 05:23 POC Glucose (mg/dL) 155 H 146 H (75-99) mg/dL - Imaging and Cardiology Chest x-ray: image reviewed Assessment and Plan Assessment: 1. Triple-vessel coronary artery disease with left main disease, unstable angina, status post four-vessel CABG 2. History of hypertension 3. History of hyperlipidemia, treated, cholesterol 165, LDL 94 4. Current tobacco dependence, preoperative FEV1 81% of predicted 5. Family history of premature coronary artery disease with mother having her first CABG at 56 years old 6. Remains unvaccinated from covid 7. Postoperative acute blood loss anemia and thrombocytopenia, expected Plan: 1. Continue to maximize medical therapy with aspirin, statin, beta nely. Will increase beta nely as tolerated. Continue Norvasc for radial artery spasm prophylaxis 2. Wean O2 as tolerated. Encourage incentive spirometry use 10 times every hour while awake. Bronchodilators per pulmonology 3. Increase activity, ambulate as tolerated. PT/OT/cardiac rehab following 4. Will monitor daily labs and x-rays. Electrolyte replacement per protocol 5. GI/DVT prophylaxis 6. Pain control with current medication regimen 7. Will discontinue left pleural chest tube 8. Will discontinue epicardial pacemaker wires. Patient to remain on bedrest for 1 hour post-wire removal 9. Smoking cessation counseling was offered, patient is strongly encouraged to quit smoking 10. Strict accurate intake and output. Daily weights. Patient to shower daily starting tomorrow 11. Insulin management per internal medicine. Patient is not diabetic, preoperative hemoglobin A1c 5.9%, however the patient needs tight blood sugar control to promote sternal union and prevent infection 12. Discharge planning in progress. Anticipate discharge to home with home care in the next 24-48 hours 13. More recommendations to follow Time with Patient: Greater than 30
[2022-01-04 08:01] LABS: African American GFR (CKD) >90 (>60 ml/min/1.73 sqM); Anion Gap 6 mmol/L; Blood Urea Nitrogen 23 mg/dL (9-20); Calcium 7.6 mg/dL (8.4-10.2); Carbon Dioxide 24 mmol/L (22-30); Chloride 101 mmol/L (98-107); Glucose 120 mg/dL (74-99); Magnesium 2.3 mg/dL (1.6-2.3); Non-African American GFR(CKD) >90 (>60 ml/min/1.73 sqM); Potassium 3.9 mmol/L (3.5-5.1); Sodium 131 mmol/L (137-145)
[2022-01-04] MEDS ORDERED: POTASSIUM CHLORIDE ER 20 MEQ TAB.ER PO STA (08:07)
--- NOTE | 2022-01-04 08:16 | XR ---
EXAMINATION TYPE: XR chest 2V DATE OF EXAM: 01/04/2022 COMPARISON: X-ray dated 01/03/2022 HISTORY: Postoperative CABG TECHNIQUE: Frontal and lateral views of the chest are obtained. FINDINGS: Left intercostal drainage tube with the tip superimposed on the anterior aspect of the mid zone of th e left lung. Heterogeneous patchy opacities newly seen in the right mid and right lower lung zones wi th thin atelectasis in the left midlung zone. No sizable pleural effusion or definite pneumothorax. Unchanged cardiomediastinal silhouette, sternot nadira sutures and aortic atherosclerotic calcifications IMPRESSION: Right mid and right lower lung zone opacities, more prominent as compared to the previous x-ray. Unde rlying infection can't be excluded, for clinical correlation and follow-up to resolution.
[2022-01-04] MEDS: HEPARIN SODIUM,PORCINE/PF 5,000 UNIT/0.5 ML SYRINGE SQ SCH ×2 (08:39→17:04)
[2022-01-04] MEDS: ATORVASTATIN 40 MG TAB PO SCH (08:40)
[2022-01-04] MEDS: ASPIRIN 325 MG TAB PO SCH (08:40)
[2022-01-04] MEDS: TAMSULOSIN 0.4 MG CAP.ER.24H PO SCH (08:40)
[2022-01-04] MEDS: CLOPIDOGREL 75 MG TAB PO SCH (08:40)
[2022-01-04] MEDS ORDERED: FUROSEMIDE 10 MG/ML 2 ML VIAL IV ONE (09:29)
--- NOTE | 2022-01-04 09:33 | P.PN ---
Subjective Progress Note Date: 01/04/22 Pts oxygen requirement is improving. Hgb slowly down-trending, but he is HDS, now on iron. Had last chest tube removed today. CXR shows RUL and RLL opacities, clear left side. No fevers, chills. Using IS. Sugars controlled. Objective - Vital Signs Vital signs: Vital Signs Temp 97.9 F 01/04/22 08:00 Pulse 81 01/04/22 08:00 Resp 18 01/04/22 08:00 BP 100/58 01/04/22 08:00 Pulse Ox 97 01/04/22 08:00 Intake & Output 01/03/22 01/04/22 01/04/22 18:59 06:59 18:59 Intake Total 802 480 Output Total 1570 630 550 Balance -768 -630 -70 Weight 85.8 kg Intake: IV 52 Lactated Ringers 1,000 ml 40 @ 20 mls/hr IV .Q24H [facility] Rx#:[id number] Pressure Bag 12 Oral 750 480 Output: Chest Tube Drainage 130 30 MS/LP 60 Pleural Catheter Left 70 30 Urine 1440 600 550 Other: Voiding Method Urinal Urinal ABP, PAP, CO, CI - Last Documented Arterial Blood Pressure 129/49 Pulmonary Artery Pressure 34/18 Cardiac Output 7 Cardiac Index 3.5 - Exam Gen: awake, alert HEENT: normocephalic, atraumatic, good hearing acuity, moist mucous membranes Resp: good air exchange, no accessory muscle use CVS: good distal perfusion x 4, regular rate and rhythm without murmurs GI: soft, NTTP, ND : no SPT, no CVAT, baker catheter not present MSK: no pitting edema, no clubbing - Labs CBC & Chem 7: 01/04/22 07:03 01/04/22 07:03 Labs: Abnormal Lab Results - Last 24 Hours (Table) 01/03/22 01/03/22 01/03/22 Range/Units 11:44 17:33 20:30 RBC (4.30-5.90) m/uL Hgb (13.0-17.5) gm/dL Hct (39.0-53.0) % Plt Count (150-450) k/uL Sodium (137-145) mmol/L BUN (9-20) mg/dL Glucose (74-99) mg/dL POC Glucose (mg/dL) 115 H 156 H 155 H (75-99) mg/dL Calcium (8.4-10.2) mg/dL 01/04/22 01/04/22 01/04/22 Range/Units 05:23 07:03 07:03 RBC 2.34 L (4.30-5.90) m/uL Hgb 7.6 L (13.0-17.5) gm/dL Hct 22.4 L (39.0-53.0) % Plt Count 142 L (150-450) k/uL Sodium 131 L (137-145) mmol/L BUN 23 H (9-20) mg/dL Glucose 120 H (74-99) mg/dL POC Glucose (mg/dL) 146 H (75-99) mg/dL Calcium 7.6 L (8.4-10.2) mg/dL Assessment and Plan Assessment: Unstable angina -Admit to inpatient, telemetry -Cardiology consulted -Pulmonary consulted -CT surgery consulted -Continue aspirin, statin -Continue beta nely, Imdur -Nitro gtt, stopped -cardizem gtt at 5mg/hr -insulin gtt for 48 hours, now on AC-SSI Acute Blood Loss Anemia Anticipated outcome of surgery Iron supplementation Hypertension Hyperlipidemia Nicotine use Marijuana abuse -Home medications reviewed and reconciled -Amlodipine was resumed -Cessation counseling advised Patient is full code
[2022-01-04] MEDS: IPRATROPIUM-ALBUTEROL 3 ML NEB INHALATION SCH ×4 (09:35→20:44)
[2022-01-04] MEDS: amLODIPine 2.5 MG TAB PO SCH (11:49)
[2022-01-04] MEDS: METOPROLOL TARTRATE 25 MG TAB PO SCH ×2 (11:49→20:59)
[2022-01-04 12:00] LABS: Glucose,Whole Blood 125 mg/dL (75-99)
--- NOTE | 2022-01-04 12:29 | P.PN ---
Subjective This is a 61 year old male with a past medical history of hypertension, hyperlipidemia, current tobacco dependence. He follows with Dr. Cummings. Patient initially presented to the hospital on 12/29/2021 for cardic catheterization with Dr. Cummings. His cardiac catheterization revealed severe left main disease and triple vessel disease with left main stenosis 70%, RCA stenosis 90%, circumflex stenosis 90%, and distal LAD stenosis 70-80%. Patient was admitted, and CT surgery consult for CABG was recommended. On 01/01/2022, patient underwent 4 vessel CABG with DEWEY to LAD, radial artery to OM, reverse SVG to the diagonal artery, reverse SVG to PDA, ligation of the left atrial appendage. 01/04/2022 Patient examined this morning this morning at the bedside. Patient denies chest pain or pressure. Denies SOB. He is ambulating in the halls with assistance. Telemetry reveals sinus mechanism HR 70s-90s Blood pressure 99/58. SpO2 98% on 4 L nasal cannula He's currently maintained on amlodipine 2.5 mg daily, aspirin 325 mg daily, atorvastatin 40 mg daily, Plavix 75mg daily, metoprolol tartrate 25 mg twice a day Labs: WBC 8.0. Hgb 7.6, Plt 142, sodium 131, potassium 3.9, BUN 23, serum creatinine 0.8, magnesium 2.3 PHYSICAL EXAM: VITAL SIGNS: Reviewed. GENERAL: Well-developed in no acute distress. NECK: Supple. No JVD or thyromegaly LUNGS: Respirations even and unlabored. Lungs essentially clear to auscultation bilaterally. HEART: Regular rate and rhythm. S1 and S2 heard. Anterior chest wall incision well approximated EXTREMITIES: Normal range of motion. No clubbing or cyanosis. Peripheral pulses intact. No lower extremity edema ASSESSMENT: Triple vessel coronary artery disease with left main disease s/p 4 vessel CABG on 01/01/2022 Hypertension Hyperlipidemia Nicotine dependence Family history of premature coronary artery disease PLAN: Continue aspirin, plavix, statin, beta nely, amlodipine Encourage incentive spirometry use 10 times an hour, wean O2 as tolerated Increase activity, ambulate as tolerated. We will continue to follow On discharge patient to follow up with Dr. Cummings outpatient Further recommendations pending patient's course Nurse practitioner note has been reviewed by physician. Signing provider agrees with the documented findings, assessment, and plan of care. Objective - Vital Signs Vital signs: Vital Signs Temp 97.5 F L 01/04/22 11:02 Pulse 82 01/04/22 11:02 Resp 16 01/04/22 11:02 BP 99/58 01/04/22 11:02 Pulse Ox 98 01/04/22 11:02 Intake & Output 01/03/22 01/04/22 01/04/22 18:59 06:59 18:59 Intake Total 802 480 Output Total 1570 630 550 Balance -768 -630 -70 Weight 85.8 kg Intake: IV 52 Lactated Ringers 1,000 ml 40 @ 20 mls/hr IV .Q24H [facility] Rx#:[id number] Pressure Bag 12 Oral 750 480 Output: Chest Tube Drainage 130 30 MS/LP 60 Pleural Catheter Left 70 30 Urine 1440 600 550 Other: Voiding Method Urinal Urinal # Bowel Movements 1 ABP, PAP, CO, CI - Last Documented Arterial Blood Pressure 129/49 Pulmonary Artery Pressure 34/18 Cardiac Output 7 Cardiac Index 3.5 - Labs CBC & Chem 7: 01/04/22 07:03 01/04/22 07:03 Labs: Abnormal Lab Results - Last 24 Hours (Table) 01/03/22 01/03/22 01/04/22 Range/Units 17:33 20:30 05:23 RBC (4.30-5.90) m/uL Hgb (13.0-17.5) gm/dL Hct (39.0-53.0) % Plt Count (150-450) k/uL Sodium (137-145) mmol/L BUN (9-20) mg/dL Glucose (74-99) mg/dL POC Glucose (mg/dL) 156 H 155 H 146 H (75-99) mg/dL Calcium (8.4-10.2) mg/dL 01/04/22 01/04/22 01/04/22 Range/Units 07:03 07:03 11:59 RBC 2.34 L (4.30-5.90) m/uL Hgb 7.6 L (13.0-17.5) gm/dL Hct 22.4 L (39.0-53.0) % Plt Count 142 L (150-450) k/uL Sodium 131 L (137-145) mmol/L BUN 23 H (9-20) mg/dL Glucose 120 H (74-99) mg/dL POC Glucose (mg/dL) 125 H (75-99) mg/dL Calcium 7.6 L (8.4-10.2) mg/dL
--- NOTE | 2022-01-04 14:27 | P.PN ---
Subjective Progress Note Date: 01/04/22 Principal diagnosis: Symptomatic multivessel coronary artery disease On 01/04/2022 patient is seen in follow-up on selective care unit. His postoperative day #3, status post four-vessel coronary artery bypass surgery. This, comfortable, is currently on 4 L of oxygen pulse ox is 98%, today's chest x-ray has been reviewed, showing right mid and right lower lung opacities. His chest tubes have been discontinued. He is breathing comfortably in no acute events overnight. He is working on incentive spirometer. Progressing well. His been ambulating. Tolerates activity well. Remains in sinus mechanism hemodynamically stable. Objective - Vital Signs Vital signs: Vital Signs Temp 97.5 F L 01/04/22 11:02 Pulse 80 01/04/22 12:30 Resp 16 01/04/22 11:02 BP 99/58 01/04/22 11:02 Pulse Ox 98 01/04/22 11:02 Intake & Output 01/03/22 01/04/22 01/04/22 18:59 06:59 18:59 Intake Total 802 600 Output Total 0189 786 7365 Balance -768 -630 -550 Weight 85.8 kg Intake: IV 52 Lactated Ringers 1,000 ml 40 @ 20 mls/hr IV .Q24H YANICK Rx#:[id number] Pressure Bag 12 Oral 750 600 Output: Chest Tube Drainage 130 30 MS/LP 60 Pleural Catheter Left 70 30 Urine 4301 763 3662 Other: Voiding Method Urinal Urinal Urinal # Bowel Movements 1 ABP, PAP, CO, CI - Last Documented Arterial Blood Pressure 129/49 Pulmonary Artery Pressure 34/18 Cardiac Output 7 Cardiac Index 3.5 - Exam GENERAL EXAM: Alert, very pleasant 61-year-old white male on 4 L of oxygen with pulse ox of 98%, comfortable in no apparent distress. HEAD: Normocephalic/atraumatic. EYES: Normal reaction of pupils, equal size. Conjunctiva pink, sclera white. NOSE: Clear with pink turbinates. THROAT: No erythema or exudates. NECK: No masses, no JVD, no thyroid enlargement, no adenopathy. CHEST: No chest wall deformity. Symmetrical expansion. Midsternal incision is clean dry and intact, chest tube sites are clean dry and intact LUNGS: Equal air entry with no crackles, wheeze, rhonchi or dullness. CVS: Regular rate and rhythm, normal S1 and S2, no gallops, no murmurs, no rubs ABDOMEN: Soft, nontender. No hepatosplenomegaly, normal bowel sounds, no guarding or rigidity. EXTREMITIES: No clubbing, no edema, no cyanosis, 2+ pulses and upper and lower extremities. MUSCULOSKELETAL: Muscle strength and tone normal. SPINE: No scoliosis or deformity SKIN: No rashes CENTRAL NERVOUS SYSTEM: Alert and oriented -3. No focal deficits, tone is normal in all 4 extremities. PSYCHIATRIC: Alert and oriented -3. Appropriate affect. Intact judgment and insight. - Labs CBC & Chem 7: 01/04/22 07:03 01/04/22 07:03 Labs: Abnormal Lab Results - Last 24 Hours (Table) 01/03/22 01/03/22 01/04/22 Range/Units 17:33 20:30 05:23 RBC (4.30-5.90) m/uL Hgb (13.0-17.5) gm/dL Hct (39.0-53.0) % Plt Count (150-450) k/uL Sodium (137-145) mmol/L BUN (9-20) mg/dL Glucose (74-99) mg/dL POC Glucose (mg/dL) 156 H 155 H 146 H (75-99) mg/dL Calcium (8.4-10.2) mg/dL 01/04/22 01/04/22 01/04/22 Range/Units 07:03 07:03 11:59 RBC 2.34 L (4.30-5.90) m/uL Hgb 7.6 L (13.0-17.5) gm/dL Hct 22.4 L (39.0-53.0) % Plt Count 142 L (150-450) k/uL Sodium 131 L (137-145) mmol/L BUN 23 H (9-20) mg/dL Glucose 120 H (74-99) mg/dL POC Glucose (mg/dL) 125 H (75-99) mg/dL Calcium 7.6 L (8.4-10.2) mg/dL Assessment and Plan Plan: Assessment: #1. Symptomatic multivessel coronary artery disease with left main disease, status post four-vessel coronary artery bypass grafting surgery, postop day 3 #2. History of hypertension #3. History of hyperlipidemia #4. Current and ongoing tobacco dependence #5. Family history of premature coronary artery disease #6. Occasional marijuana user Plan: Patient is doing well Wean FiO2 Encourage ambulation Chest tubes have been removed Hemodynamically stable No acute events overnight Continue encouraging deep and coughing Anticipate possible discharge home the next 24-48 hours before cleared by surgery I have personally seen and examined the patient, performed the documentation and the assessment and plan as written. Number of minutes spent on the visit: [10] Time with Patient: Less than 30
[2022-01-04 17:02] LABS: Glucose,Whole Blood 124 mg/dL (75-99)
[2022-01-04] MEDS: ASCORBIC ACID 500 MG TAB PO SCH (17:04)
[2022-01-04] MEDS: FERROUS SULFATE 325 MG TAB PO SCH (17:04)
[2022-01-04 20:11] LABS: Glucose,Whole Blood 134 mg/dL (75-99)
[2022-01-04] MEDS: SENNOSIDES-DOCUSATE SODIUM 1 EACH TAB PO SCH (20:59)
[2022-01-04] MEDS: MELATONIN 3 MG TABLET PO SCH (20:59)
[2022-01-05] MEDS: HEPARIN SODIUM,PORCINE/PF 5,000 UNIT/0.5 ML SYRINGE SQ SCH ×4 (00:17→23:27)
[2022-01-05] MEDS: HYDROcodone/APAP 5-325MG 1 EACH TAB PO PRN ×3 (03:33→17:14)
[2022-01-05 06:02] LABS: Glucose,Whole Blood 118 mg/dL (75-99)
[2022-01-05] MEDS: INSULIN ASPART (NovoLOG) 100 UNIT/ML VIAL SQ SCH ×4 (06:13→20:47)
[2022-01-05] MEDS: ASCORBIC ACID 500 MG TAB PO SCH ×2 (06:22→17:14)
[2022-01-05] MEDS: PANTOPRAZOLE 40 MG TABLET PO SCH (06:22)
[2022-01-05] MEDS: FERROUS SULFATE 325 MG TAB PO SCH ×2 (06:22→17:14)
[2022-01-05] MEDS ORDERED: ACETAMINOPHEN TAB 325 MG TAB PO PRN (07:09)
[2022-01-05] MEDS: IPRATROPIUM-ALBUTEROL 3 ML NEB INHALATION SCH ×4 (07:51→19:24)
--- NOTE | 2022-01-05 08:04 | XR ---
EXAMINATION TYPE: XR chest 2V DATE OF EXAM: 01/05/2022 COMPARISON: X-ray dated 01/04/2022 HISTORY: Post cardiac surgery TECHNIQUE: Frontal and lateral views of the chest are obtained. FINDINGS: Interval removal of the left intercostal drainage tube. Persistent opacities in the lower lung zones without interval improvement. The right midlung zone opacity has improved in the interim. Unchanged c ardiomediastinal silhouette, sternotomy sutures and aortic atherosclerotic calcifications. IMPRESSION: Mild interval changes as described above.
[2022-01-05] MEDS: ASPIRIN 325 MG TAB PO SCH (08:07)
[2022-01-05] MEDS: CLOPIDOGREL 75 MG TAB PO SCH (08:07)
[2022-01-05] MEDS: ATORVASTATIN 40 MG TAB PO SCH (08:07)
[2022-01-05] MEDS: TAMSULOSIN 0.4 MG CAP.ER.24H PO SCH (08:07)
[2022-01-05] MEDS: METOPROLOL TARTRATE 25 MG TAB PO SCH ×2 (08:07→20:49)
[2022-01-05 08:20] LABS: HCT 21.9 % (39.0-53.0); HGB 7.5 gm/dL (13.0-17.5); MCH 33.3 pg (25.0-35.0); MCHC 34.1 g/dL (31.0-37.0); MCV 97.8 fL (80.0-100.0); Mean Platelet Volume 7.4; Platelet Count 212 k/uL (150-450); RBC 2.24 m/uL (4.30-5.90); RDW 13.2 % (11.5-15.5); WBC 6.4 k/uL (3.8-10.6)
[2022-01-05 08:36] LABS: African American GFR (CKD) >90 (>60 ml/min/1.73 sqM); Anion Gap 3 mmol/L; Blood Urea Nitrogen 15 mg/dL (9-20); Calcium 7.7 mg/dL (8.4-10.2); Carbon Dioxide 28 mmol/L (22-30); Chloride 102 mmol/L (98-107); Glucose 126 mg/dL (74-99); Magnesium 2.3 mg/dL (1.6-2.3); Non-African American GFR(CKD) >90 (>60 ml/min/1.73 sqM); Potassium 4.4 mmol/L (3.5-5.1); Sodium 133 mmol/L (137-145)
[2022-01-05] MEDS ORDERED: FUROSEMIDE 10 MG/ML 2 ML VIAL IV ONE (09:22)
--- NOTE | 2022-01-05 09:26 | P.PN ---
Subjective Progress Note Date: 01/05/22 Principal diagnosis: Triple-vessel coronary artery disease with left main disease, unstable angina. Previous medical history of hypertension, hyperlipidemia, current tobacco depen dence, and family history of premature coronary artery disease with mother having her first CABG at 56 years old. Remains unvaccinated from [place] POD #4 coronary artery bypass grafting 4 vessels with left internal mammary artery to the left anterior descending artery, radial artery to the obtuse marginal artery, reverse saphenous vein graft to the diagonal artery, reverse saphenous vein graft to the posterior descending artery, endoscopic harvesting of the left radial artery, endoscopic harvesting of the greater left greater saphenous vein, ligation of the left atrial appendage using a 35 mm AtriClip, epi-aortic ultrasound, intraoperative transesophageal echocardiogram performed by anesthesia Postoperative acute blood loss anemia and thrombocytopenia, expected given hemodilution and cardiopulmonary bypass pump The patient was seen and examined this morning with Dr. Cortez sitting up in a recliner on the cardiac stepdown unit in no acute distress. Does complain of postsurgical chest pain, denies shortness of breath. He has been ambulatory short distances with assistance. Remains in sinus rhythm, hemodynamically stable. Continues to utilize incentive spirometry. Epicardial pacemaker wires remain present. No new concerns. Objective - Vital Signs Vital signs: Vital Signs Temp 98.0 F 01/05/22 08:04 Pulse 70 01/05/22 08:04 Resp 18 01/05/22 08:04 BP 109/62 01/05/22 08:04 Pulse Ox 97 01/05/22 08:04 Intake & Output 01/04/22 01/05/22 01/05/22 18:59 06:59 18:59 Intake Total 720 118 Output Total 1800 1100 Balance -1080 -1100 118 Weight 86.2 kg Intake: Oral 720 118 Output: Urine 1800 1100 Other: Voiding Method Urinal Urinal # Voids 1 # Bowel Movements 1 ABP, PAP, CO, CI - Last Documented Arterial Blood Pressure 129/49 Pulmonary Artery Pressure 34/18 Cardiac Output 7 Cardiac Index 3.5 - Exam CONSTITUTIONAL: Appears comfortable, cooperative, no acute distress RESPIRATORY: Lungs sounds diminished bilaterally. Respirations even, nonlabored. Currently on 1 L nasal cannula with oxygen saturation 93%. Able to achieve 1500 mL on incentive spirometry. Strong cough. CARDIOVASCULAR: S1, S2 present. Regular rate and rhythm, sinus rhythm on te lemetry. Sternum stable. Palpable peripheral pulses bilaterally. Trace generalized edema present. No calf pain or tenderness noted. Heart hugger in place with patient demonstrating appropriate use. Antiembolism stockings, SCDs present. GASTROINTESTINAL: Abdomen soft, nontender, nondistended. Active bowel sounds present 4 quadrants. Tolerating diet. Positive bowel movement GENITOURINARY: Continues to void, 2900 mL in the last 24 hours INTEGUMENTARY: Skin is warm and dry with evidence of good perfusion. Anterior chest incision well approximated and covered with dry intact dressing. Left lower extremity EVH site as well as left radial artery harvest site well approximated without redness or drainage. NEUROLOGIC: Cranial nerves II through XII intact MUSKULOSKELETAL: Able to move all extremities, strength equal bilaterally, gait normal PSYCHIATRIC: Alert and oriented to person place and time, appropriate affect, intact judgment and insight INVASIVE LINES AND TUBES: A/V epicardial pacemaker wires present, grounded - Allied health notes Allied health notes reviewed: nursing - Labs CBC & Chem 7: 01/05/22 07:33 01/05/22 07:33 Labs: Abnormal Lab Results - Last 24 Hours (Table) 01/04/22 01/04/22 01/04/22 Range/Units 11:59 17:00 20:10 RBC (4.30-5.90) m/uL Hgb (13.0-17.5) gm/dL Hct (39.0-53.0) % Sodium (137-145) mmol/L Glucose (74-99) mg/dL POC Glucose (mg/dL) 125 H 124 H 134 H (75-99) mg/dL Calcium (8.4-10.2) mg/dL 01/05/22 01/05/22 01/05/22 Range/Units 05:59 07:33 07:33 RBC 2.24 L (4.30-5.90) m/uL Hgb 7.5 L (13.0-17.5) gm/dL Hct 21.9 L (39.0-53.0) % Sodium 133 L (137-145) mmol/L Glucose 126 H (74-99) mg/dL POC Glucose (mg/dL) 118 H (75-99) mg/dL Calcium 7.7 L (8.4-10.2) mg/dL - Imaging and Cardiology Chest x-ray: report reviewed, image reviewed Assessment and Plan Assessment: 1. Triple-vessel coronary artery disease with left main disease, unstable angina, status post four-vessel CABG 2. History of hypertension 3. History of hyperlipidemia, treated, cholesterol 165, LDL 94 4. Current tobacco dependence, preoperative FEV1 81% of predicted 5. Family history of premature coronary artery disease with mother having her first CABG at 56 years old 6. Remains unvaccinated from covid 7. Postoperative acute blood loss anemia and thrombocytopenia, expected Plan: 1. Continue to maximize medical therapy with aspirin, statin, beta nely. Will increase beta nely as tolerated. Continue Norvasc for radial artery spasm prophylaxis 2. Wean O2 as tolerated. Encourage incentive spirometry use 10 times every hour while awake. Bronchodilators per pulmonology 3. Increase activity, ambulate as tolerated. PT/OT/cardiac rehab following 4. Will monitor daily labs and x-rays. Electrolyte replacement per protocol. No transfusion today 5. GI/DVT prophylaxis 6. Pain control with current medication regimen 7. Will discontinue epicardial pacemaker wires. Patient to remain on bedrest for 1 hour post-wire removal 8. Smoking cessation counseling was offered, patient is strongly encouraged to quit smoking 9. Strict accurate intake and output. Daily weights. Patient to shower daily 10. Insulin management per internal medicine. Patient is not diabetic, preoperative hemoglobin A1c 5.9%, however the patient needs tight blood sugar control to promote sternal union and prevent infection 11. Discharge planning in progress. Anticipate discharge to home with home care in the next 24-48 hours 12. More recommendations to follow Time with Patient: Greater than 30
[2022-01-05 11:32] LABS: Glucose,Whole Blood 123 mg/dL (75-99)
--- NOTE | 2022-01-05 12:00 | P.PN ---
Subjective Progress Note Date: 01/05/22 Principal diagnosis: Symptomatic multivessel coronary artery disease On 01/04/2022 patient is seen in follow-up on selective care unit. His postoperative day #3, status post four-vessel coronary artery bypass surgery. This, comfortable, is currently on 4 L of oxygen pulse ox is 98%, today's chest x-ray has been reviewed, showing right mid and right lower lung opacities. His chest tubes have been discontinued. He is breathing comfortably in no acute events overnight. He is working on incentive spirometer. Progressing well. His been ambulating. Tolerates activity well. Remains in sinus mechanism hemodynamically stable. On 01/05/2022 patient is seen in follow-up on selective care unit. Patient is on his postoperative day #4, status post four-vessel coronary artery bypass surgery. He is breathing comfortably, his pulse ox is 97% on room air, today's chest x-ray has been reviewed, showing persistent opacities in the lower lung zones without improvement, unchanged cardiac mediastinal silhouette. Today's labs have been reviewed, white blood cell count is 6.4, hemoglobin is 7.5, platelet count is 212, sodium is 133, Krystin the electrolytes and renal profile are unremarkable. Patient is working on incentive spirometer, he is achieving 1500 on the today. He is in sinus mechanism controlled rate, he is on aspirin, Plavix, is on metoprolol 25 mg twice daily, he is on Protonix and subcu heparin for GI and DVT prophylaxis. No acute events overnight. Objective - Vital Signs Vital signs: Vital Signs Temp 98.0 F 01/05/22 08:04 Pulse 80 01/05/22 11:24 Resp 18 01/05/22 08:04 BP 109/62 01/05/22 08:04 Pulse Ox 97 01/05/22 08:04 Intake & Output 01/04/22 01/05/22 01/05/22 18:59 06:59 18:59 Intake Total 720 118 Output Total 1800 1100 Balance -1080 -1100 118 Weight 86.2 kg Intake: Oral 720 118 Output: Urine 1800 1100 Other: Voiding Method Urinal Urinal Urinal # Voids 1 # Bowel Movements 1 ABP, PAP, CO, CI - Last Documented Arterial Blood Pressure 129/49 Pulmonary Artery Pressure 34/18 Cardiac Output 7 Cardiac Index 3.5 - Exam GENERAL EXAM: Alert, very pleasant 61-year-old white male on room air with a pulse ox of 97% comfortable in no apparent distress. HEAD: Normocephalic/atraumatic. EYES: Normal reaction of pupils, equal size. Conjunctiva pink, sclera white. NOSE: Clear with pink turbinates. THROAT: No erythema or exudates. NECK: No masses, no JVD, no thyroid enlargement, no adenopathy. CHEST: No chest wall deformity. Symmetrical expansion. Midsternal incision is clean dry and intact, chest tube sites are clean dry and intact LUNGS: Equal air entry with no crackles, wheeze, rhonchi or dullness. CVS: Regular rate and rhythm, normal S1 and S2, no gallops, no murmurs, no rubs ABDOMEN: Soft, nontender. No hepatosplenomegaly, normal bowel sounds, no guarding or rigidity. EXTREMITIES: No clubbing, no edema, no cyanosis, 2+ pulses and upper and lower extremities. MUSCULOSKELETAL: Muscle strength and tone normal. SPINE: No scoliosis or deformity SKIN: No rashes CENTRAL NERVOUS SYSTEM: Alert and oriented -3. No focal deficits, tone is normal in all 4 extremities. PSYCHIATRIC: Alert and oriented -3. Appropriate affect. Intact judgment and insight. - Labs CBC & Chem 7: 01/05/22 07:33 01/05/22 07:33 Labs: Abnormal Lab Results - Last 24 Hours (Table) 01/04/22 01/04/22 01/04/22 Range/Units 11:59 17:00 20:10 RBC (4.30-5.90) m/uL Hgb (13.0-17.5) gm/dL Hct (39.0-53.0) % Sodium (137-145) mmol/L Glucose (74-99) mg/dL POC Glucose (mg/dL) 125 H 124 H 134 H (75-99) mg/dL Calcium (8.4-10.2) mg/dL 01/05/22 01/05/22 01/05/22 Range/Units 05:59 07:33 07:33 RBC 2.24 L (4.30-5.90) m/uL Hgb 7.5 L (13.0-17.5) gm/dL Hct 21.9 L (39.0-53.0) % Sodium 133 L (137-145) mmol/L Glucose 126 H (74-99) mg/dL POC Glucose (mg/dL) 118 H (75-99) mg/dL Calcium 7.7 L (8.4-10.2) mg/dL 01/05/22 Range/Units 11:31 RBC (4.30-5.90) m/uL Hgb (13.0-17.5) gm/dL Hct (39.0-53.0) % Sodium (137-145) mmol/L Glucose (74-99) mg/dL POC Glucose (mg/dL) 123 H (75-99) mg/dL Calcium (8.4-10.2) mg/dL Assessment and Plan Plan: Assessment: #1. Symptomatic multivessel coronary artery disease with left main disease, status post four-vessel coronary artery bypass grafting surgery, postop day 4 #2. History of hypertension #3. History of hyperlipidemia #4. Current and ongoing tobacco dependence #5. Family history of premature coronary artery disease #6. Occasional marijuana user Plan: Patient is doing well Continue encouraging deep breathing and coughing, today's chest x-ray and labs have been reviewed Diuretics per CT surgery, Patient continues on aspirin, Plavix, beta blockers in the form of metoprolol, he is on GI and DVT prophylaxis Has been compliant with his incentive spirometer, tolerating ambulation in the noonan No acute events overnight DC planning per CT surgery recommendations We'll continue to follow I have personally seen and examined the patient, performed the documentation and the assessment and plan as written. Number of minutes spent on the visit: [10] Time with Patient: Less than 30
[2022-01-05] MEDS: amLODIPine 2.5 MG TAB PO SCH (12:02)
--- NOTE | 2022-01-05 14:00 | P.PN ---
Subjective This is a 61 year old male with a past medical history of hypertension, hyperlipidemia, current tobacco dependence. He follows with Dr. Cummings. Patient initially presented to the hospital on 12/29/2021 for cardic catheterization with Dr. Cummings. His cardiac catheterization revealed severe left main disease and triple vessel disease with left main stenosis 70%, RCA stenosis 90%, circumflex stenosis 90%, and distal LAD stenosis 70-80%. Patient was admitted, and CT surgery consult for CABG was recommended. On 01/01/2022, patient underwent 4 vessel CABG with DEWEY to LAD, radial artery to OM, reverse SVG to the diagonal artery, reverse SVG to PDA, ligation of the left atrial appendage. 01/05/2022 Patient examined this morning this morning at the bedside. Patient denies chest pressure. Does have some post surgical pain. Denies SOB. He is ambulating in the halls with assistance. Telemetry reveals sinus mechanism HR 70s-90s Blood pressure 131/78 SpO2 98% on room air. Plan to removed pacemaker wires today. He's currently maintained on amlodipine 2.5 mg daily, aspirin 325 mg daily, atorvastatin 40 mg daily, Plavix 75mg daily, metoprolol tartrate 25 mg twice a day, lasix 20mg daily Labs: WBC 6.4. Hgb7.5 Plt 212, sodium 133, potassium 4.4, BUN 15, serum creatinine 0.72, magnesium 2.3 PHYSICAL EXAM: VITAL SIGNS: Reviewed. GENERAL: Well-developed in no acute distress. NECK: Supple. No JVD or thyromegaly LUNGS: Respirations even and unlabored. Lungs essentially clear to auscultation bilaterally. HEART: Regular rate and rhythm. S1 and S2 heard. Anterior chest wall incision well approximated EXTREMITIES: Normal range of motion. No clubbing or cyanosis. Peripheral pulses intact. No lower extremity edema ASSESSMENT: Triple vessel coronary artery disease with left main disease s/p 4 vessel CABG on 01/01/2022 Hypertension Hyperlipidemia Nicotine dependence Family history of premature coronary artery disease PLAN: Continue aspirin, plavix, statin, beta nely, amlodipine Encourage incentive spirometry use 10 times an hour, wean O2 as tolerated Increase activity, ambulate as tolerated. We will continue to follow On discharge patient to follow up with Dr. Cummings outpatient Further recommendations pending patient's course Nurse practitioner note has been reviewed by physician. Signing provider agrees with the documented findings, assessment, and plan of care. Objective - Vital Signs Vital signs: Vital Signs Temp 97.8 F 01/05/22 12:16 Pulse 78 01/05/22 12:16 Resp 18 01/05/22 12:16 BP 131/78 01/05/22 12:16 Pulse Ox 98 01/05/22 12:16 Intake & Output 01/04/22 01/05/22 01/05/22 18:59 06:59 18:59 Intake Total 720 788 Output Total 1800 1100 600 Balance -1080 -1100 188 Weight 86.2 kg Intake: Oral 720 788 Output: Urine 1800 1100 600 Other: Voiding Method Urinal Urinal Urinal # Voids 1 # Bowel Movements 1 ABP, PAP, CO, CI - Last Documented Arterial Blood Pressure 129/49 Pulmonary Artery Pressure 34/18 Cardiac Output 7 Cardiac Index 3.5 - Labs CBC & Chem 7: 01/05/22 07:33 01/05/22 07:33 Labs: Abnormal Lab Results - Last 24 Hours (Table) 01/04/22 01/04/22 01/05/22 Range/Units 17:00 20:10 05:59 RBC (4.30-5.90) m/uL Hgb (13.0-17.5) gm/dL Hct (39.0-53.0) % Sodium (137-145) mmol/L Glucose (74-99) mg/dL POC Glucose (mg/dL) 124 H 134 H 118 H (75-99) mg/dL Calcium (8.4-10.2) mg/dL 01/05/22 01/05/22 01/05/22 Range/Units 07:33 07:33 11:31 RBC 2.24 L (4.30-5.90) m/uL Hgb 7.5 L (13.0-17.5) gm/dL Hct 21.9 L (39.0-53.0) % Sodium 133 L (137-145) mmol/L Glucose 126 H (74-99) mg/dL POC Glucose (mg/dL) 123 H (75-99) mg/dL Calcium 7.7 L (8.4-10.2) mg/dL
--- NOTE | 2022-01-05 15:48 | P.PN ---
Subjective Progress Note Date: 01/05/22 Patient was seen and examined at the bedside. He complains of exertional dyspnea and chest pain with coughing. Hemoglobin dropped to 7.5. Otherwise no acute reported changes overnight Objective - Vital Signs Vital signs: Vital Signs Temp 97.8 F 01/05/22 12:16 Pulse 89 01/05/22 15:30 Resp 18 01/05/22 14:00 BP 131/78 01/05/22 12:16 Pulse Ox 91 L 01/05/22 15:24 Intake & Output 01/04/22 01/05/22 01/05/22 18:59 06:59 18:59 Intake Total 720 788 Output Total 1800 1100 600 Balance -1080 -1100 188 Weight 86.2 kg Intake: Oral 720 788 Output: Urine 1800 1100 600 Other: Voiding Method Urinal Urinal Urinal # Voids 1 # Bowel Movements 1 ABP, PAP, CO, CI - Last Documented Arterial Blood Pressure 129/49 Pulmonary Artery Pressure 34/18 Cardiac Output 7 Cardiac Index 3.5 - Exam General: non toxic, no distress, appears at stated age Derm: warm, dry Head: atraumatic, normocephalic, symmetric Eyes: EOMI, no lid lag, anicteric sclera Mouth: no lip lesion, mucus membranes moist Cardiovascular: S1S2 reg, no murmur, positive posterior tibial pulse bilateral, Lungs: CTA bilateral, no rhonchi, no rales , no accessory muscle use Abdominal: soft, nontender to palpation, no guarding, no appreciable orga nomegaly Ext: no gross muscle atrophy, no edema, no contractures Neuro: CN II-XI grossly intact, no focal neuro deficits Psych: Alert, oriented, appropriate affect - Labs CBC & Chem 7: 01/05/22 07:33 01/05/22 07:33 Labs: Abnormal Lab Results - Last 24 Hours (Table) 01/04/22 01/04/22 01/05/22 Range/Units 17:00 20:10 05:59 RBC (4.30-5.90) m/uL Hgb (13.0-17.5) gm/dL Hct (39.0-53.0) % Sodium (137-145) mmol/L Glucose (74-99) mg/dL POC Glucose (mg/dL) 124 H 134 H 118 H (75-99) mg/dL Calcium (8.4-10.2) mg/dL 01/05/22 01/05/22 01/05/22 Range/Units 07:33 07:33 11:31 RBC 2.24 L (4.30-5.90) m/uL Hgb 7.5 L (13.0-17.5) gm/dL Hct 21.9 L (39.0-53.0) % Sodium 133 L (137-145) mmol/L Glucose 126 H (74-99) mg/dL POC Glucose (mg/dL) 123 H (75-99) mg/dL Calcium 7.7 L (8.4-10.2) mg/dL Assessment and Plan Assessment: #Multivessel coronary disease with left main disease as well as CABG 4 -Postoperative day #4 -Continue encouraging deep breathing and coughing, today's chest x-ray and labs have been reviewed -Diuretics per CT surgery, -Patient continues on aspirin, Plavix, beta blockers in the form of metoprolol. -Resume incentive spirometer -DC planning tomorrow per her [employer] supervisor with surgery #Acute blood loss anemia secondary to surgery -Hemoglobin today 7.5 -Continue to monitor hemoglobin daily -On iron supplements #History of hypertension #History of hyperlipidemia #Current and ongoing tobacco dependence #Family history of premature coronary artery disease #Occasional marijuana user #GI and DVT prophylaxis -Resume proton pump inhibitor and subcutaneous heparin.
[2022-01-05 16:20] LABS: Glucose,Whole Blood 141 mg/dL (75-99)
[2022-01-05 20:32] LABS: Glucose,Whole Blood 142 mg/dL (75-99)
[2022-01-05] MEDS: MELATONIN 3 MG TABLET PO SCH (20:49)
[2022-01-05] MEDS: SENNOSIDES-DOCUSATE SODIUM 1 EACH TAB PO SCH (20:49)
[2022-01-06] MEDS: FERROUS SULFATE 325 MG TAB PO SCH (05:51)
[2022-01-06] MEDS: HYDROcodone/APAP 5-325MG 1 EACH TAB PO PRN (05:51)
[2022-01-06] MEDS: ASCORBIC ACID 500 MG TAB PO SCH (05:51)
[2022-01-06] MEDS: PANTOPRAZOLE 40 MG TABLET PO SCH (05:52)
[2022-01-06 05:59] LABS: Glucose,Whole Blood 116 mg/dL (75-99)
[2022-01-06] MEDS: INSULIN ASPART (NovoLOG) 100 UNIT/ML VIAL SQ SCH ×2 (06:17→12:27)
[2022-01-06 07:38] LABS: Basophils % (A) 0 %; Eosinophils # (A) 0.2 k/uL (0-0.7); Eosinophils % (A) 3 %; HCT 22.3 % (39.0-53.0); HGB 7.5 gm/dL (13.0-17.5); Lymphocytes # (A) 0.8 k/uL (1.0-4.8); Lymphocytes % (A) 13 %; MCH 32.8 pg (25.0-35.0); MCHC 33.6 g/dL (31.0-37.0); MCV 97.8 fL (80.0-100.0); Mean Platelet Volume 7.1; Monocytes # (A) 0.6 k/uL (0-1.0); Monocytes % (A) 10 %; Neutrophils # (A) 4.2 k/uL (1.3-7.7); Neutrophils % (A) 69 %; Platelet Count 282 k/uL (150-450); RBC 2.28 m/uL (4.30-5.90); RDW 13.3 % (11.5-15.5); WBC 6.1 k/uL (3.8-10.6)
[2022-01-06 07:58] LABS: African American GFR (CKD) >90 (>60 ml/min/1.73 sqM); Anion Gap 7 mmol/L; Blood Urea Nitrogen 14 mg/dL (9-20); Calcium 7.8 mg/dL (8.4-10.2); Carbon Dioxide 23 mmol/L (22-30); Chloride 102 mmol/L (98-107); Glucose 106 mg/dL (74-99); Magnesium 2.3 mg/dL (1.6-2.3); Non-African American GFR(CKD) >90 (>60 ml/min/1.73 sqM); Potassium 4.2 mmol/L (3.5-5.1); Sodium 132 mmol/L (137-145)
--- NOTE | 2022-01-06 08:07 | XR ---
EXAMINATION TYPE: XR chest 2V DATE OF EXAM: 01/06/2022 COMPARISON: X-ray dated 01/05/2022 HISTORY: Postoperative CABG TECHNIQUE: Frontal and lateral views of the chest are obtained. FINDINGS: Almost complete resolution of the previously seen right midlung zone opacity with smaller bilateral b jacobo opacities yet not completely resolved. Small pleural effusions more on the left side, grossly st able. Unchanged cardiomediastinal silhouette, sternotomy wire sutures and aortic atherosclerotic calc ifications. IMPRESSION: Improvement of the pulmonary patchy opacities as described above.
[2022-01-06] MEDS: TAMSULOSIN 0.4 MG CAP.ER.24H PO SCH (08:29)
[2022-01-06] MEDS: HEPARIN SODIUM,PORCINE/PF 5,000 UNIT/0.5 ML SYRINGE SQ SCH (08:29)
[2022-01-06] MEDS: ASPIRIN 325 MG TAB PO SCH (08:29)
[2022-01-06] MEDS: METOPROLOL TARTRATE 25 MG TAB PO SCH (08:29)
[2022-01-06] MEDS: CLOPIDOGREL 75 MG TAB PO SCH (08:29)
[2022-01-06] MEDS: ATORVASTATIN 40 MG TAB PO SCH (08:29)
[2022-01-06] MEDS: IPRATROPIUM-ALBUTEROL 3 ML NEB INHALATION SCH ×2 (08:34→11:50)
[2022-01-06] MEDS ORDERED: FUROSEMIDE 20 MG TAB PO SCH (09:00)
--- NOTE | 2022-01-06 10:20 | P.PN ---
Subjective Progress Note Date: 01/06/22 Principal diagnosis: Triple-vessel coronary artery disease with left main disease, unstable angina. Previous medical history of hypertension, hyperlipidemia, current tobacco depen dence, and family history of premature coronary artery disease with mother having her first CABG at 56 years old. Remains unvaccinated from covid POD #5 coronary artery bypass grafting 4 vessels with left internal mammary artery to the left anterior descending artery, radial artery to the obtuse marginal artery, reverse saphenous vein graft to the diagonal artery, reverse saphenous vein graft to the posterior descending artery, endoscopic harvesting of the left radial artery, endoscopic harvesting of the greater left greater saphenous vein, ligation of the left atrial appendage using a 35 mm AtriClip, epi-aortic ultrasound, intraoperative transesophageal echocardiogram performed by anesthesia Postoperative acute blood loss anemia and thrombocytopenia, expected given hemodilution and cardiopulmonary bypass pump The patient was seen and examined this morning sitting up in a recliner on the cardiac stepdown unit in no acute distress. Does complain of postsurgical chest pain, denies shortness of breath. He has been ambulatory with assistance. Remains in sinus rhythm, hemodynamically stable. Continues to utilize incentive spirometry. No new concerns. Objective - Vital Signs Vital signs: Vital Signs Temp 97 F L 01/06/22 08:28 Pulse 80 01/06/22 08:54 Resp 16 01/06/22 08:28 BP 121/74 01/06/22 08:28 Pulse Ox 94 L 01/06/22 08:28 Intake & Output 01/05/22 01/06/22 01/06/22 18:59 06:59 18:59 Intake Total 788 240 Output Total 600 800 Balance 188 -800 240 Weight 84.6 kg Intake: Oral 788 240 Output: Drainage 0 Left Arm 0 Urine 600 800 Other: Voiding Method Urinal Urinal Urinal ABP, PAP, CO, CI - Last Documented Arterial Blood Pressure 129/49 Pulmonary Artery Pressure 34/18 Cardiac Output 7 Cardiac Index 3.5 - Exam CONSTITUTIONAL: Appears comfortable, cooperative, no acute distress RESPIRATORY: Lungs sounds diminished bilaterally. Respirations even, nonlabored. Currently on room air with oxygen saturation 90%. Able to achieve 1500 mL on incentive spirometry. Strong cough. CARDIOVASCULAR: S1, S2 present. Regular rate and rhythm, sinus rhythm on telemetry. Sternum stable. Palpable peripheral pulses bilaterally. Trace generalized edema present. No calf pain or tenderness noted. Heart hugger in place with patient demonstrating appropriate use. Antiembolism stockings, SCDs present. GASTROINTESTINAL: Abdomen soft, nontender, nondistended. Active bowel sounds present 4 quadrants. Tolerating diet. Positive bowel movement GENITOURINARY: Continues to void INTEGUMENTARY: Skin is warm and dry with evidence of good perfusion. Anterior chest incision well approximated and covered with dry intact dressing. Left lower extremity EVH site as well as left radial artery harvest site well approximated without redness or drainage. NEUROLOGIC: Cranial nerves II through XII intact MUSKULOSKELETAL: Able to move all extremities, strength equal bilaterally, gait normal PSYCHIATRIC: Alert and oriented to person place and time, appropriate affect, intact judgment and insight INVASIVE LINES AND TUBES: A/V epicardial pacemaker wires present, grounded - Allied health notes Allied health notes reviewed: nursing - Labs CBC & Chem 7: 01/06/22 07:09 01/06/22 07:09 Labs: Abnormal Lab Results - Last 24 Hours (Table) 01/05/22 01/05/22 01/05/22 Range/Units 11:31 16:17 20:30 RBC (4.30-5.90) m/uL Hgb (13.0-17.5) gm/dL Hct (39.0-53.0) % Lymphocytes # (1.0-4.8) k/uL Sodium (137-145) mmol/L Glucose (74-99) mg/dL POC Glucose (mg/dL) 123 H 141 H 142 H (75-99) mg/dL Calcium (8.4-10.2) mg/dL 01/06/22 01/06/22 01/06/22 Range/Units 05:58 07:09 07:09 RBC 2.28 L (4.30-5.90) m/uL Hgb 7.5 L (13.0-17.5) gm/dL Hct 22.3 L (39.0-53.0) % Lymphocytes # 0.8 L (1.0-4.8) k/uL Sodium 132 L (137-145) mmol/L Glucose 106 H (74-99) mg/dL POC Glucose (mg/dL) 116 H (75-99) mg/dL Calcium 7.8 L (8.4-10.2) mg/dL - Imaging and Cardiology Chest x-ray: report reviewed, image reviewed Assessment and Plan Assessment: 1. Triple-vessel coronary artery disease with left main disease, unstable angina, status post four-vessel CABG 2. History of hypertension 3. History of hyperlipidemia, treated, cholesterol 165, LDL 94 4. Current tobacco dependence, preoperative FEV1 81% of predicted 5. Family history of premature coronary artery disease with mother having her first CABG at 56 years old 6. Remains unvaccinated from covid 7. Postoperative acute blood loss anemia and thrombocytopenia, expected Plan: 1. Continue to maximize medical therapy with aspirin, statin, beta nely. Will increase beta nely as tolerated. Continue Norvasc for radial artery spasm prophylaxis 2. Encourage incentive spirometry use 10 times every hour while awake. Bronchodilators per pulmonology 3. Increase activity, ambulate as tolerated. PT/OT/cardiac rehab following 4. Will monitor daily labs and x-rays. Electrolyte replacement per protocol. No transfusion today 5. GI/DVT prophylaxis 6. Pain control with current medication regimen 7. Epicardial pacemaker wires discontinued. Patient to remain on bedrest for 1 hour post-wire removal 8. Smoking cessation counseling was offered, patient is strongly encouraged to quit smoking 9. Strict accurate intake and output. Daily weights. Patient to shower daily 10. Insulin management per internal medicine. Patient is not diabetic, preoper ative hemoglobin A1c 5.9%, however the patient needs tight blood sugar control to promote sternal union and prevent infection 11. Discharge planning in progress. Anticipate discharge to home with home care this afternoon 12. More recommendations to follow Time with Patient: Greater than 30
[2022-01-06 12:18] LABS: Glucose,Whole Blood 97 mg/dL (75-99)
--- NOTE | 2022-01-06 12:23 | P.PN ---
Subjective Progress Note Date: 01/06/22 Principal diagnosis: Symptomatic multivessel coronary artery disease On 01/04/2022 patient is seen in follow-up on selective care unit. His postoperative day #3, status post four-vessel coronary artery bypass surgery. This, comfortable, is currently on 4 L of oxygen pulse ox is 98%, today's chest x-ray has been reviewed, showing right mid and right lower lung opacities. His chest tubes have been discontinued. He is breathing comfortably in no acute events overnight. He is working on incentive spirometer. Progressing well. His been ambulating. Tolerates activity well. Remains in sinus mechanism hemodynamically stable. On 01/05/2022 patient is seen in follow-up on selective care unit. Patient is on his postoperative day #4, status post four-vessel coronary artery bypass surgery. He is breathing comfortably, his pulse ox is 97% on room air, today's chest x-ray has been reviewed, showing persistent opacities in the lower lung zones without improvement, unchanged cardiac mediastinal silhouette. Today's labs have been reviewed, white blood cell count is 6.4, hemoglobin is 7.5, platelet count is 212, sodium is 133, Krystin the electrolytes and renal profile are unremarkable. Patient is working on incentive spirometer, he is achieving 1500 on the today. He is in sinus mechanism controlled rate, he is on aspirin, Plavix, is on metoprolol 25 mg twice daily, he is on Protonix and subcu heparin for GI and DVT prophylaxis. No acute events overnight. On 01/06/2022 patient seen in follow-up. Patient is ambulating about the room, in no acute distress, on room air with a pulse ox of 94%, breathing comfortably, lung sounds are clear, today's chest x-ray has been reviewed showing improvement of the pulmonary patchy opacities. Today's labs have been reviewed white blood cell count is 6.1, hemoglobin is 7.5, platelet count is 282, sodium is 132, the rest of electrolytes and renal profile are unremarkable. Chest tubes and lines have been discontinued, his epicardial wires have been discontinued. Incisions are clean dry and intact. Hemodynamically stable, remains in sinus mechanism. No acute events overnight Objective - Vital Signs Vital signs: Vital Signs Temp 97 F L 01/06/22 08:28 Pulse 80 01/06/22 08:54 Resp 16 01/06/22 08:28 BP 121/74 01/06/22 08:28 Pulse Ox 94 L 01/06/22 08:28 Intake & Output 01/05/22 01/06/22 01/06/22 18:59 06:59 18:59 Intake Total 788 240 Output Total 600 800 Balance 188 -800 240 Weight 84.6 kg Intake: Oral 788 240 Output: Drainage 0 Left Arm 0 Urine 600 800 Other: Voiding Method Urinal Urinal Urinal ABP, PAP, CO, CI - Last Documented Arterial Blood Pressure 129/49 Pulmonary Artery Pressure 34/18 Cardiac Output 7 Cardiac Index 3.5 - Exam GENERAL EXAM: Alert, very pleasant 61-year-old white male on room air with a pulse ox of 94% comfortable in no apparent distress. HEAD: Normocephalic/atraumatic. EYES: Normal reaction of pupils, equal size. Conjunctiva pink, sclera white. NOSE: Clear with pink turbinates. THROAT: No erythema or exudates. NECK: No masses, no JVD, no thyroid enlargement, no adenopathy. CHEST: No chest wall deformity. Symmetrical expansion. Midsternal incision is clean dry and intact, chest tube sites are clean dry and intact LUNGS: Equal air entry with no crackles, wheeze, rhonchi or dullness. CVS: Regular rate and rhythm, normal S1 and S2, no gallops, no murmurs, no rubs ABDOMEN: Soft, nontender. No hepatosplenomegaly, normal bowel sounds, no guarding or rigidity. EXTREMITIES: No clubbing, no edema, no cyanosis, 2+ pulses and upper and lower extremities. MUSCULOSKELETAL: Muscle strength and tone normal. SPINE: No scoliosis or deformity SKIN: No rashes CENTRAL NERVOUS SYSTEM: Alert and oriented -3. No focal deficits, tone is normal in all 4 extremities. PSYCHIATRIC: Alert and oriented -3. Appropriate affect. Intact judgment and insight. - Labs CBC & Chem 7: 01/06/22 07:09 01/06/22 07:09 Labs: Abnormal Lab Results - Last 24 Hours (Table) 01/05/22 01/05/22 01/06/22 Range/Units 16:17 20:30 05:58 RBC (4.30-5.90) m/uL Hgb (13.0-17.5) gm/dL Hct (39.0-53.0) % Lymphocytes # (1.0-4.8) k/uL Sodium (137-145) mmol/L Glucose (74-99) mg/dL POC Glucose (mg/dL) 141 H 142 H 116 H (75-99) mg/dL Calcium (8.4-10.2) mg/dL 01/06/22 01/06/22 Range/Units 07:09 07:09 RBC 2.28 L (4.30-5.90) m/uL Hgb 7.5 L (13.0-17.5) gm/dL Hct 22.3 L (39.0-53.0) % Lymphocytes # 0.8 L (1.0-4.8) k/uL Sodium 132 L (137-145) mmol/L Glucose 106 H (74-99) mg/dL POC Glucose (mg/dL) (75-99) mg/dL Calcium 7.8 L (8.4-10.2) mg/dL Assessment and Plan Plan: Assessment: #1. Symptomatic multivessel coronary artery disease with left main disease, s tatus post four-vessel coronary artery bypass grafting surgery, postop day 5 #2. History of hypertension #3. History of hyperlipidemia #4. Current and ongoing tobacco dependence #5. Family history of premature coronary artery disease #6. Occasional marijuana user Plan: Patient is doing well Continue encouraging deep breathing and coughing, today's chest x-ray and labs have been reviewed All chest tubes lines and epicardial wires have been discontinued Patient is tolerating ambulation Hemodynamically stable, no arrhythmias Anticipate possible discharge home today if cleared by CT surgery I have personally seen and examined the patient, performed the documentation and the assessment and plan as written. Number of minutes spent on the visit: [10] Time with Patient: Less than 30
[2022-01-06] MEDS: amLODIPine 2.5 MG TAB PO SCH (12:47)
[2022-01-06 12:49] VITALS: BP 115/68; PULSE 67; RESP 18; TEMP 97.4
--- NOTE | 2022-01-06 13:25 | P.PN ---
Subjective Progress Note Date: 01/06/22 Patient was seen and examined at the bedside. Patient is being discharged today by cardiothoracic surgery. Otherwise no acute reported changes overnight Objective - Vital Signs Vital signs: Vital Signs Temp 97.4 F L 01/06/22 12:49 Pulse 67 01/06/22 12:49 Resp 18 01/06/22 12:49 BP 115/68 01/06/22 12:49 Pulse Ox 97 01/06/22 12:49 Intake & Output 01/05/22 01/06/22 01/06/22 18:59 06:59 18:59 Intake Total 788 240 Output Total 600 800 Balance 188 -800 240 Weight 84.6 kg Intake: Oral 788 240 Output: Drainage 0 Left Arm 0 Urine 600 800 Other: Voiding Method Urinal Urinal Urinal # Voids 1 ABP, PAP, CO, CI - Last Documented Arterial Blood Pressure 129/49 Pulmonary Artery Pressure 34/18 Cardiac Output 7 Cardiac Index 3.5 - Exam General: non toxic, no distress, appears at stated age Derm: warm, dry Head: atraumatic, normocephalic, symmetric Eyes: EOMI, no lid lag, anicteric sclera Mouth: no lip lesion, mucus membranes moist Cardiovascular: S1S2 reg, no murmur, positive posterior tibial pulse bilateral, Lungs: CTA bilateral, no rhonchi, no rales , no accessory muscle use Abdominal: soft, nontender to palpation, no guarding, no appreciable organomegaly Ext: no gross muscle atrophy, no edema, no contractures Neuro: CN II-XI grossly intact, no focal neuro deficits Psych: Alert, oriented, appropriate affect - Labs CBC & Chem 7: 01/06/22 07:09 01/06/22 07:09 Labs: Abnormal Lab Results - Last 24 Hours (Table) 01/05/22 01/05/22 01/06/22 Range/Units 16:17 20:30 05:58 RBC (4.30-5.90) m/uL Hgb (13.0-17.5) gm/dL Hct (39.0-53.0) % Lymphocytes # (1.0-4.8) k/uL Sodium (137-145) mmol/L Glucose (74-99) mg/dL POC Glucose (mg/dL) 141 H 142 H 116 H (75-99) mg/dL Calcium (8.4-10.2) mg/dL 01/06/22 01/06/22 Range/Units 07:09 07:09 RBC 2.28 L (4.30-5.90) m/uL Hgb 7.5 L (13.0-17.5) gm/dL Hct 22.3 L (39.0-53.0) % Lymphocytes # 0.8 L (1.0-4.8) k/uL Sodium 132 L (137-145) mmol/L Glucose 106 H (74-99) mg/dL POC Glucose (mg/dL) (75-99) mg/dL Calcium 7.8 L (8.4-10.2) mg/dL Assessment and Plan Assessment: #Multivessel coronary disease with left main disease as well as CABG 4 -Postoperative day #4 -Continue encouraging deep breathing and coughing, today's chest x-ray and labs have been reviewed -Diuretics per CT surgery, -Patient continues on aspirin, Plavix, beta blockers in the form of metoprolol. -Resume incentive spirometer -DC planning tomorrow per her domain architect with surgery #Acute blood loss anemia secondary to surgery -Hemoglobin stable today 7.5 -Continue to monitor hemoglobin daily -On iron supplements #History of hypertension #History of hyperlipidemia #Current and ongoing tobacco dependence #Family history of premature coronary artery disease #Occasional marijuana user #GI and DVT prophylaxis -Resume proton pump inhibitor and subcutaneous heparin.
--- NOTE | 2022-01-06 13:32 | P.PN ---
Subjective This is a 61 year old male with a past medical history of hypertension, hyperlipidemia, current tobacco dependence. He follows with Dr. Cummings. Patient initially presented to the hospital on 12/29/2021 for cardic catheterization with Dr. Cummings. His cardiac catheterization revealed severe left main disease and triple vessel disease with left main stenosis 70%, RCA stenosis 90%, circumflex stenosis 90%, and distal LAD stenosis 70-80%. Patient was admitted, and CT surgery consult for CABG was recommended. On 01/01/2022, patient underwent 4 vessel CABG with DEWEY to LAD, radial artery to OM, reverse SVG to the diagonal artery, reverse SVG to PDA, ligation of the left atrial appendage. 01/06/2022 Patient examined this morning this morning at the bedside. Patient denies chest pressure. Does have some post surgical pain. Denies SOB. He is ambulating in the halls with assistance. Telemetry reveals sinus mechanism HR 60s-80s Blood pressure 115/68 SpO2 98% on room air. Pacemaker wires removed today He's currently maintained on amlodipine 2.5 mg daily, aspirin 325 mg daily, atorvastatin 40 mg daily, Plavix 75mg daily, metoprolol tartrate 25 mg twice a day, lasix 20mg daily Labs: WBC 6.4. Hgb7.5 Plt 212, sodium 133, potassium 4.4, BUN 15, serum creatinine 0.72, magnesium 2.3 PHYSICAL EXAM: VITAL SIGNS: Reviewed. GENERAL: Well-developed in no acute distress. NECK: Supple. No JVD or thyromegaly LUNGS: Respirations even and unlabored. Lungs essentially clear to auscultation bilaterally. HEART: Regular rate and rhythm. S1 and S2 heard. Anterior chest wall incision well approximated EXTREMITIES: Normal range of motion. No clubbing or cyanosis. Peripheral pulses intact. No lower extremity edema ASSESSMENT: Triple vessel coronary artery disease with left main disease s/p 4 vessel CABG on 01/01/2022 Hypertension Hyperlipidemia Nicotine dependence Family history of premature coronary artery disease PLAN: Continue aspirin, plavix, statin, beta nely, amlodipine Encourage incentive spirometry use 10 times an hour, wean O2 as tolerated Increase activity, ambulate as tolerated. We will continue to follow On discharge patient to follow up with Dr. Cummings outpatient Further recommendations pending patient's course Nurse practitioner note has been reviewed by physician. Signing provider agrees with the documented findings, assessment, and plan of care. Objective - Vital Signs Vital signs: Vital Signs Temp 97.4 F L 01/06/22 12:49 Pulse 67 01/06/22 12:49 Resp 18 01/06/22 12:49 BP 115/68 01/06/22 12:49 Pulse Ox 97 01/06/22 12:49 Intake & Output 01/05/22 01/06/22 01/06/22 18:59 06:59 18:59 Intake Total 788 240 Output Total 600 800 Balance 188 -800 240 Weight 84.6 kg Intake: Oral 788 240 Output: Drainage 0 Left Arm 0 Urine 600 800 Other: Voiding Method Urinal Urinal Urinal # Voids 1 ABP, PAP, CO, CI - Last Documented Arterial Blood Pressure 129/49 Pulmonary Artery Pressure 34/18 Cardiac Output 7 Cardiac Index 3.5 - Labs CBC & Chem 7: 01/06/22 07:09 01/06/22 07:09 Labs: Abnormal Lab Results - Last 24 Hours (Table) 01/05/22 01/05/22 01/06/22 Range/Units 16:17 20:30 05:58 RBC (4.30-5.90) m/uL Hgb (13.0-17.5) gm/dL Hct (39.0-53.0) % Lymphocytes # (1.0-4.8) k/uL Sodium (137-145) mmol/L Glucose (74-99) mg/dL POC Glucose (mg/dL) 141 H 142 H 116 H (75-99) mg/dL Calcium (8.4-10.2) mg/dL 01/06/22 01/06/22 Range/Units 07:09 07:09 RBC 2.28 L (4.30-5.90) m/uL Hgb 7.5 L (13.0-17.5) gm/dL Hct 22.3 L (39.0-53.0) % Lymphocytes # 0.8 L (1.0-4.8) k/uL Sodium 132 L (137-145) mmol/L Glucose 106 H (74-99) mg/dL POC Glucose (mg/dL) (75-99) mg/dL Calcium 7.8 L (8.4-10.2) mg/dL
--- NOTE | 2022-01-07 13:16 | P.DS ---
Providers Date of admission: 12/30/21 11:20 Expected date of discharge: 01/06/22 Attending physician: Tadeo Martinez Consults: 12/29/21 08:23 Consult Physician Stat Consulting Provider: Dorian Ladd Consult Reason/Comments: POSSIBLE CABG Do you want consulting provider notified?: Already Contacted 12/29/21 11:42 Consult Physician Routine Consulting Provider: Sam Guo Consult Reason/Comments: pulm clearence for open heart surgery Do you want consulting provider notified?: Already Contacted 12/31/21 08:13 Consult Physician Routine Consulting Provider: Brandy Kent Consult Reason/Comments: med mgmt; Jaqueline patient Do you want consulting provider notified?: Yes 12/31/21 09:30 Consult Physician Routine Consulting Provider: Redd Cummings Consult Reason/Comments: cardiology Do you want consulting provider notified?: Already Contacted 12/31/21 15:08 Consult to Anesthesia Routine Consulting Provider: Anesthesia,Services Consult Reason/Comments: Cardiac Surgery Pre-Op Primary care physician: Awilda Parsons MD Hospital Course: FINAL DIAGNOSIS: 1. Triple-vessel coronary artery disease with left main disease, unstable angina 2. History of hypertension 3. History of hyperlipidemia, treated, cholesterol 165, LDL 94 4. Current tobacco dependence, preoperative FEV1 81% of predicted 5. Family history of premature coronary artery disease with mother having her first CABG at 56 years old 6. Remains unvaccinated from Covid 7. Postoperative acute blood loss anemia and thrombocytopenia expected PRINCIPAL PROCEDURE: 1. Coronary artery bypass grafting 4 vessels with left internal mammary artery to the left anterior descending artery, radial artery to the obtuse marginal artery, reverse saphenous vein graft to the diagonal artery, reverse saphenous vein graft to the posterior descending artery 2. Endoscopic harvesting of the left radial artery 3. Endoscopic harvesting of the left greater saphenous vein 4. Ligation of the left atrial appendage using a 35 mm AtriClip 5. Epi-aortic ultrasound 6. Intraoperative transesophageal echocardiogram performed by anesthesia HISTORY OF PRESENT ILLNESS: This is a 61-year-old active gentleman who follows on an outpatient basis with Dr. Parsons for primary care. He had been expensing symptoms of shortness of breath and chest pain and sought care with Dr. Cummings from [facility]. He underwent treadmill stress test which had to be stopped early due to chest pain and shortness of breath. At peak exercise he did have ST depression in the inferolateral leads and was recommended to undergo heart catheterization which demonstrated left main stenosis 70%, RCA stenosis 90%, circumflex stenosis 90%, and distal LAD stenosis 70-80%. Transthoracic echocardiogram was also completed demonstrating normal left ventricular systolic function with EF 55%, mild mitral and mild tricuspid regurgitation. Consultation was placed to Dr. Martinez from cardiothoracic surgery for re commendations. He was recommended to undergo coronary artery bypass surgery. The usual perioperative course was discussed in detail with the patient and his family, all risks and benefits were explained, all questions were answered, and consent was obtained to proceed with surgery. The patient was kept inpatient due to the nature of his disease process and scheduled at the earliest possible date. HOSPITAL COURSE: The patient was brought to the preoperative area on 01/01/2022, prepared in the usual fashion, and subsequently taken to the operating room where Dr. Martinez performed 4 vessel CABG. Upon completion of surgery the patient was transferred to the cardiovascular intensive care unit where he was recovered and monitored hemodynamically. He was extubated, all lines, tubes, and drips we re discontinued when appropriate, and he was transferred to 3 S. cardiac stepdown unit for further monitoring and rehabilitation. His oxygen was titrated down, he continued to work with physical and occupational therapy, he was tolerating oral diet, his pain was controlled, and he was ready to be discharged to home with [facility] care on postoperative day #5. He received written and verbal instruction regarding his medications, activity restrictions, signs and symptoms requiring physician notification, and follow-up appointments. Patient Condition at Discharge: Stable Plan - Discharge Summary Discharge Rx Participant: No New Discharge Prescriptions: New Furosemide [Lasix] 20 mg PO DAILY #5 tab Metoprolol Tartrate [Lopressor] 25 mg PO BID #60 tab HYDROcodone/APAP 5-325MG [[place] 5-325] 1 each PO Q6HR PRN #12 tab PRN Reason: Moderate Pain Clopidogrel [Plavix] 75 mg PO DAILY #30 tab Atorvastatin [Lipitor] 40 mg PO DAILY #30 tab Pantoprazole [Protonix] 40 mg PO AC-BRKFST #30 tab Sennosides-Docusate Sodium [Senokot-S] 2 each PO HS PRN tab PRN Reason: Constipation Acetaminophen Tab [Tylenol] 650 mg PO Q4HR PRN tab PRN Reason: Fever and/ or Mild Pain Continue Multivitamins, Thera [Multivitamin (formulary)] 1 tab PO DAILY Calcium Carbonate/Vitamin D3 [Calcium 600-Vit D3 5 Mcg (200 Iu)] 1 tab PO DAILY Krill/Danevang-3/Dha/Epa/Lipids [Krill Oil 350 mg Softgel] 1 cap PO DAILY Aspirin [Adult Low Dose Aspirin EC] 81 mg PO DAILY Changed amLODIPine [Norvasc] 2.5 mg PO DAILY #0 Discontinued Losartan Potassium 100 mg PO HS Atorvastatin Calcium [Lipitor] 10 mg PO HS Isosorbide Mononitrate [Isosorbide Mononitrate ER] 30 mg PO DAILY Discharge Medication List Aspirin [Adult Low Dose Aspirin EC] 81 mg PO DAILY 04/02/20 [History] Calcium Carbonate/Vitamin D3 [Calcium 600-Vit D3 5 Mcg (200 Iu)] 1 tab PO DAILY 04/02/20 [History] Krill/Danevang-3/Dha/Epa/Lipids [Krill Oil 350 mg Softgel] 1 cap PO DAILY 04/02/20 [History] Multivitamins, Thera [Multivitamin (formulary)] 1 tab PO DAILY 04/02/20 [History] Acetaminophen Tab [Tylenol] 650 mg PO Q4HR PRN tab 01/06/22 [Rx] Atorvastatin [Lipitor] 40 mg PO DAILY #30 tab 01/06/22 [Rx] Clopidogrel [Plavix] 75 mg PO DAILY #30 tab 01/06/22 [Rx] Furosemide [Lasix] 20 mg PO DAILY #5 tab 01/06/22 [Rx] HYDROcodone/APAP 5-325MG [[place] 5-325] 1 each PO Q6HR PRN #12 tab 01/06/22 [Rx] Metoprolol Tartrate [Lopressor] 25 mg PO BID #60 tab 01/06/22 [Rx] Pantoprazole [Protonix] 40 mg PO AC-BRKFST #30 tab 01/06/22 [Rx] Sennosides-Docusate Sodium [Senokot-S] 2 each PO HS PRN tab 01/06/22 [Rx] amLODIPine [Norvasc] 2.5 mg PO DAILY #0 01/06/22 [Rx] Follow up Appointment(s)/Referral(s): Sandrita Mendosa, BRITT [Nurse Practitioner] - 01/12/22 1:00 pm (You will be seen in the surgeon's office behind the hospital in [facility], [address] Office phone number is ) [facility] PH,Cardiac [NON-STAFF] - 4 Weeks (You will be called in approximately 4-6 weeks for evaluation for cardiac rehab) Gomez Armando,Home Care [NON-STAFF] - Nguyen Gerber NPC [Nurse Practitioner] - 02/04/22 2:30 pm Tadeo Martinez MD [STAFF PHYSICIAN] - 01/29/22 9:30 am Awilda Parsons MD [Primary Care Provider] - 01/25/22 1:00 pm Redd Cummings MD [STAFF PHYSICIAN] - 01/18/22 9:30 am Ambulatory/Diagnostic Orders: Complete Blood Count w/diff [LAB.AMB] Time Frame: 3 Days, Location: None Selected Comprehensive Metabolic Panel [LAB.AMB] Time Frame: 3 Days, Location: None Selected Activity/Diet/Wound Care/Special Instructions: DISCHARGE INSTRUCTIONS: 1. No driving for 4 weeks, or until physician gives their ok. 2. The patient should sleep in their own bed, no medical bed needed. 3. Stairs are not an issue. If the bedroom is upstairs, it is advised that the patient go up at night and down in the morning for the first week. Go slowly, using handrail and take 1 step at a time. 4. PAWEL hose are to be worn for 30 days or until physician discontinues. 5. Heart hugger is to be worn 100% of the time until physician discontinues.(except when showering) 6. No lifting, pushing, or pulling more than 10 pounds for 12 weeks. The physician will advise of any restriction changes. 7. The patient is expected to continue the prescribed walking program. 8. Continue pain control per as needed orders. 9. Continue with incentive spirometry and splinting/heart hugger until otherwise directed by the physician. 10. Must shower daily using liquid antibacterial soap and a separate white wa shcloth for each individual incision. 11. Routine sternal incision care. No powders, lotions, ointments on incisions. No dressings are necessary on incisions unless they are draining. Dermabond tape is to remain on sternal incision until surgeon follow-up. 12. Please call surgeon/STAGING TECHNICIAN for temp greater than 101 F or purulent drainage from incisions. 13. Narcotic medications were discussed with the patient, including the potential for misuse, addiction, and abuse. Opiod Start Talking form was reviewed with the patient. 14. All prescriptions given by surgeon for 30 days. Refills need to be filled through shade cutter/primary care physician. 15. A Red armband has been placed on the patient. It should be worn for 30 days post surgery and will be removed by the cardiac surgeons. If an ER visit is necessary, please make sure the number on the Red armband is called. 16. You have been referred to and are expected to begin Cardiac Rehab in approximately 4-6 weeks. HOME HEALTH SERVICES TO PROVIDE: RN SKILLED HOME CARE SERVICES FOR POST-OP SURGICAL PATIENTS WITH THE FOLLOWING: Coronary Artery Bypass Surgery (CABG), Mitral Valve Replacement/Repair ( MVR), Aortic Valve Replacement/Repair (AVR) RN TO CONTINUE EDUCATION FROM ``ROAD TO A HEALTH HEART PATIENT EDUCATION MANUAL (GIVEN TO PATIENT IN THE HOSPITAL) MEDICATION RECONCILIATION WITH EDUCATION NEEDED ON FIRST HOME VISIT EMPHASIZE IMPORTANCE OF WEARING BREAST SUPPORT/HEART HUGGER ENCOURAGE USE OF INCENTIVE SPIROMETER 10 X EVERY HOUR WHILE AWAKE ENCOURAGE UTILIZATION OF LOWER EXTREMITY COMPRESSION STOCKINGS/PAWEL HOSE and ELEVATE LEGS ABOVE LEVEL OF HEART WHILE AT REST. ENCOURAGE AMBULATION 3-5x/day INCREASING TOLERATES, WHILE AVOIDING EXTREMES IN TEMPERATURE FREQUENCY: RN TO OPEN THE PATIENT WITHIN 24 HOURS OF DISCHARGE FROM THE HOSPITAL WITH [place] [facility] [facility] [place] TO VISIT 2-3 X A WEEK FOR 4 WEEKS ESTABLISHED BY PATIENT NEEDS. LABORATORY: CBC, CMP TO BE DRAWN ON THE THIRD DAY HOME, (RAN STAT) FAX RESULTS TO [phone]. TELEHEALTH PARAMETERS: WEIGHT: NOTIFY MD OF WEIGHT GAIN OF 2 LBS IN 24 HOURS OR 5 LBS IN ONE WEEK HR: NOTIFY MD OF HR <55 BPM OR HR>100 BPM BP: NOTIFY MD IF BP <90/55 OR BP>140/100 O2 SAT: NOTIFY MD IF PO2<93% ON ROOM AIR SEND TELEHEALTH REPORT TO INTEGRATION ENGINEER AND CARDIOVASCULAR SURGEON THE FIRST WEEK OF CARE AND THEN BI-WEEKLY. PLEASE ADDITIONALLY COMMUNICATE ANY ABNORMALS AND NEW FINDINGS TO THE SURGEONS OFFICE. Discharge Disposition: HOME WITH HOME HEALTH SERVICES
== END 2022-01-06 14:41 | disposition home health service (06) | DRG 234 ==
LOC: CATHCVL 06:01 → 3SCARD 08:12 → CATHCVL 12-30 11:20 → 3SCARD 12-30 11:20 → 2SICU 01-01 12:02 → 3SCARD 01-03 18:25
PROVIDERS: ADMIT Surgery; ATTEND Surgery
PROC: B34KZZZ Ultrasonography of Bilateral Upper Extremity Arteries (ICD-10-PCS; 2021-12-29)
PROC: B2111ZZ Fluoroscopy of Multiple Coronary Arteries using Low Osmolar Contrast (ICD-10-PCS; 2021-12-30)
PROC: 4A023N7 Measurement of Cardiac Sampling and Pressure, Left Heart, Percutaneous Approach (ICD-10-PCS; 2021-12-30)
PROC: B24BZZ4 Ultrasonography of Heart with Aorta, Transesophageal (ICD-10-PCS; principal; 2022-01-01 08:00)
PROC: 02100Z9 Bypass Coronary Artery, One Artery from Left Internal Mammary, Open Approach (ICD-10-PCS; principal; 2022-01-01 08:00)
PROC: 02100AW Bypass Coronary Artery, One Artery from Aorta with Autologous Arterial Tissue, Open Approach (ICD-10-PCS; principal; 2022-01-01 08:00)
PROC: 06BQ4ZZ Excision of Left Saphenous Vein, Percutaneous Endoscopic Approach (ICD-10-PCS; principal; 2022-01-01 08:00)
PROC: 03BC4ZZ Excision of Left Radial Artery, Percutaneous Endoscopic Approach (ICD-10-PCS; principal; 2022-01-01 08:00)
PROC: 02L70CK Occlusion of Left Atrial Appendage with Extraluminal Device, Open Approach (ICD-10-PCS; principal; 2022-01-01 08:00)
PROC: 5A1221Z Performance of Cardiac Output, Continuous (ICD-10-PCS; principal; 2022-01-01 08:00)
PROC: 021109W Bypass Coronary Artery, Two Arteries from Aorta with Autologous Venous Tissue, Open Approach (ICD-10-PCS; principal; 2022-01-01 08:00)
PROC: 5A0935A Assistance with Respiratory Ventilation, Less than 24 Consecutive Hours, High Flow/Velocity Cannula (ICD-10-PCS; 2022-01-03)
DX: I25.110 Atherosclerotic heart disease of native coronary artery with unstable angina pectoris (principal); D62 Acute posthemorrhagic anemia; E78.5 Hyperlipidemia, unspecified; Z20.822 Contact with and (suspected) exposure to COVID-19; I08.1 Rheumatic disorders of both mitral and tricuspid valves; I10 Essential (primary) hypertension; F12.10 Cannabis abuse, uncomplicated; F17.210 Nicotine dependence, cigarettes, uncomplicated; Z71.6 Tobacco abuse counseling; Z79.82 Long term (current) use of aspirin; Z79.899 Other long term (current) drug therapy; Z87.39 Personal history of other diseases of the musculoskeletal system and connective tissue; Z98.890 Other specified postprocedural states; Z71.51 Drug abuse counseling and surveillance of drug abuser; Z82.49 Family history of ischemic heart disease and other diseases of the circulatory system; D69.6 Thrombocytopenia, unspecified
CPT/HCPCS: 71045; 71046; 71250; 80048; 80053; 80061; 80074; 81003; 82330; 82805; 83036; 83735; 84443; 85025; 85027; 85520; 85610; 85730; 86850; 86891; 86900; 86901; 86920; 87070; 87635; 93306; 93458; 93880; 93970; 94002; 94150; 94640

== ENCOUNTER → 2022-02-11 | Outpatient (CLI) | payer BC ==
[2022-02-11 17:01] LABS: ALT 16 U/L (10-49); AST 13 U/L (14-35); LDL Cholesterol,Calculated 84.4 mg/dL (0.0-131.0); VLDL Calculation 13.86 mg/dL (5.00-40.00)
== END | disposition home or self-care (01) ==
LOC: LABWHC1 10:25
PROVIDERS: ATTEND Nurse Practitioner Family
DX: E78.2 Mixed hyperlipidemia (principal)
CPT/HCPCS: 36415; 80061; 84450; 84460

== ENCOUNTER → 2023-03-25 | Outpatient (CLI) | payer BC, OTHER ==
--- NOTE | 2023-03-25 18:32 | CTL ---
EXAMINATION TYPE: CT Low Dose Lung DATE OF EXAM ORDERED: 03/25/2023 HISTORY: 63-year-old male Z8 7.891, Z1 2.2, former smoker, 30 pack-year history. Lung cancer screenin g CT DLP: 95.[address] CTDI: 2.6 mGy Automated exposure control for dose reduction was used. SCREENING VISIT: Baseline COMPARISON: None TECHNIQUE: Low dose computed tomography scan was performed through the chest with coronal and sagitta l reconstructions. CT DIAGNOSTIC QUALITY: Satisfactory FINDINGS: Median sternotomy wires and post-CABG changes. Heart upper limits of normal in size without pericardial effusion. Aorta normal caliber with mild atherosclerotic calcifications and bovine configuration to the aortic arch. Borderline to mildly enlarged caliber to the main right and left pulmonary arteries measuring up to 2 .6 cm suggesting underlying pulmonary arterial hypertension. No thoracic lymphadenopathy by CT size criteria. Minimal biapical pleural-parenchymal scarring. Mild emphysematous change. No consolidation or pleural effusion. 3 mm subpleural pulmonary nodule posterior left lower lobe, axial image 211. No suspicious pulmonary nodules. Visualized upper abdomen shows no gross abnormality. Mild degenerative disc disease mid to lower thoracic spine. IMPRESSION: 1. LungRADS 2, benign. Solitary 3 mm pulmonary nodule left lower lobe on baseline screening. 2. COPD with mild emphysema and pulmonary arterial hypertension. CT LUNG RAD AND CT CHEST RECOMMENDATION: Lung-Rad 2 Benign Appearance or Behavior: Continue annual sc reening with LDCT in 12 months. S Modifier (other clinically significant findings): None
== END | disposition home or self-care (01) ==
LOC: RADCTMAIN 09:08
PROVIDERS: ATTEND Internal Medicine
DX: Z12.2 Encounter for screening for malignant neoplasm of respiratory organs (principal); J43.9 Emphysema, unspecified; I27.21 Secondary pulmonary arterial hypertension; R91.1 Solitary pulmonary nodule; Z87.891 Personal history of nicotine dependence
CPT/HCPCS: 71271